=== PATIENT | female | born 1955 | race Caucasian/White ===

== ENCOUNTER 2022-10-02 06:08 | Outpatient (OUT) | payer MEDICARE, MEDICAID, SELFPAY ==
--- NOTE | 2022-10-02 06:15 | NM_ITS ---
Patient: MARTHA VIVEROS Exam Date: 10/02/2022 : 1955 Gender:F Ordering : Non-Staff Physician Admission #: [id number] Family : VERITO TAYLOR Order #: [id number] CLICK HERE TO VIEW EXAM RADIOLOGY REPORT PROCEDURE: NM COLLETTE PERF SPECT REST STR COMPARISON: None. INDICATIONS: Atrial fibrillation, chest pain TECHNIQUE: Exam Description: Stress/Rest one day protocol gated SPECT Rest Imagin.0 mCi Tc-99m Cardiolite IV on 10/02/2022 Stress Imaging 30.4 mCi Tc-99m Cardiolite IV on 10/02/2022 Exercise Protocol: 0.4 mg Lexiscan given IV Heart Rate (bpm): Rest: 73 Max: 118 PMHR: 77 Blood Pressure: Rest: 154/82 Max: 188/96 Symptoms: chest pain Rest and peak stress ECG findings were abnormal and the exercise portion of the study was abnormal per attending physician Dr. Arias . For more details please see separate cardiac stress test report. FINDINGS: QUALITY OF STUDY: Excellent. PERFUSION DEFECT: None. LOCATION: N/A SIZE: N/A. SEVERITY: N/A. TYPE: N/A. WALL MOTION: Normal. LV SIZE: Normal. 68 mL. TID / TCD: None; 0.7 LVEF: Normal. Calculated EF 75%. SUMMARY: Myocardial perfusion imaging study is NORMAL. CONCLUSION: 1. Normal myocardial perfusion scan, no reversible ischemia 2. Abnormal exercise test Dictated by: Lawrence Adams MD on 10/02/2022 at 12:34 Approved by: Lawrence Adams MD on 10/02/2022 at 15:12
[2022-10-02] MEDS: REGADENOSON 0.4 MG/5 ML SYRINGE IV (08:10)
[2022-10-02] MEDS: AMINOPHYLLINE 250 MG/10 ML VIAL 25 MG IVP ×2 (08:20)
--- NOTE | 2022-10-02 09:21 | PM.STRESS ---
Stress Test Stress Test Requesting physician: Non-Staff Physician Procedure: Lexiscan Cardioite stress test General Information: Reason for Stress Test: Chest pain Cardiac History and Risk Factors: Atrial fibrillation, former smoker Resting 12 - Lead Electrocardiogram: Normal sinus rhythm, rate 73, with PACs. Normal axis. Inverted T waves in aVL which were flattend on prior EKG 09/03/2022. Stress Test: Protocol: Lexiscan Blood Pressure Response: Resting 154/82. max 188/96 Rhythm: Remained in sinus rhytm, max rate 118 (77% max predicted). ST - Response: ~3 minutes after infusion of Lexiscan, ST segment downsloping in II/III/aVF and ST segment depression V4-6 (1mm in V5) occurred and persisted until 8 minutes post infusion with abnormal findings returning to baseline Patient Response: During same time as the aforementioned ST segment changes, the patient complained of 5/10 midsternal chest pain radiating up left neck/chin and down left arm. Aminophylline 25mg IVP x2 was administered, improving symptoms. Interpretation: Positive Lexiscan stress test based on EKG changes in the inferolateral leads accompanied by reproducible chest pain. Cardiolite imaging will be reported separately. Clinical correlation required.
== END 2022-10-02 06:09 ==
LOC: NM 06:11
PROVIDERS: PCP Family Medicine
DX: I48.91 Unspecified atrial fibrillation (principal); R07.9 Chest pain, unspecified
CPT/HCPCS: 78452; 93017; A9500; J2785

== ENCOUNTER 2022-10-03 09:14 | Outpatient (OUT) | payer MEDICARE, MEDICAID, SELFPAY ==
--- NOTE | 2022-10-03 10:33 | CA_ITS ---
Patient: MARTHA VIVEROS Exam Date: 10/03/2022 : 1955 Gender:F Ordering : CHEPE MARR Admission #: [id number] Family : Order #: [id number] CLICK HERE TO VIEW EXAM ECHOCARDIOGRAM REPORT PROCEDURE: CA ECHO DOPPLER COMPLETE INDICATIONS: CHEST PAIN, EDEMA COMPARISON: None. DESCRIPTION: COMPLETE ECHOCARDIOGRAM Real-time transthoracic echocardiography with 2D, M-mode, spectral and color flow Doppler performed. QUALITY: Technical quality was good. LEFT VENTRICLE: Normal chamber size. Normal left ventricular wall thickness. LV EF: Normal left ventricular ejection fraction, (>55%). DIASTOLIC: Diastolic function is indeterminant. ATRIAL SEPTUM: Inadequately seen. LEFT ATRIUM: Severe dilatation. RIGHT ATRIUM: Severe dilatation. RIGHT VENTRICLE: Normal chamber size. Normal right ventricular systolic function. TRICUSPID VALVE: Normal mobility and thickness. No stenosis with mild regurgitation. No evidence of pulmonary hypertension. RVSP 33 mmHg MITRAL VALVE: Mildly thickened with normal mobility. No evidence of mitral valve stenosis. There is no mitral annular calcification. Mild mitral regurgitation. AORTIC VALVE: Normal trileaflet appearance. No visible sclerosis. Normal leaflet mobility. No evidence of aortic valve stenosis. Trivial aortic regurgitation. AORTIC ROOT: Normal diameter and appearance. PULMONIC VALVE: Normal thickness and mobility. No stenosis. Trivial regurgitation. PERICARDIUM: Trivial pericardial effusion. IVC: Not well visualized. CONCLUSION: 1. Global left ventricular systolic function is normal; visually estimated ejection fraction is 55 to 60%. No wall motion abnormalities. 2. Severe biatrial enlargement. 3. The right ventricle is normal in size and systolic function. 4. Diastolic function is indeterminant. 5. Mild tricuspid regurgitation. 6. Mild mitral regurgitation. 7. Trivial pericardial effusion. Adult Echocardiography Procedure Report Left Ventricle LVEDD (3.7 - 5.6 cm): 4.33 cm LVESD (2.2 - 4.0 cm): 3.56 cm LVIVS thickness (0.6 - 1.2 cm): 1.01 cm LVPW thickness (0.5 - 1.0 cm): 0.88 cm e': 0.12 m/s E - e': 7.16 LVOT Max Gradient: 3.36 mm[Hg], 3.02 mm[Hg] LVOT Area (cm2): 0.89 m/s Peak Velocity (LVOT): 0.92 m/s, 0.87 m/s Mean Velocity (LVOT): 0.64 m/s LVOT Diameter 1.80 cm Left Atrium LA Volume Index (2D A2C): 50.65 ml/m2 Left Atrium Systolic Dimension: 4.06 cm Mitral Valve MV E to A Ratio: 1.26, 1.24 Mitral Valve A-Wave Peak Velocity: 0.70 m/s Mitral Valve E-Wave Peak Velocity: 0.87 m/s Right Ventricle Aorta AO Root Diam: 2.92 cm Ascending Ao Diam: 2.58 cm Aortic Valve AoV Area (Peak Andrae): 1.44 cm2, 1.48 cm2 AoV Area (VTI): 1.63 cm2, 1.70 cm2 Peak Velocity(Antegrade Flow): 1.58 m/s Peak Gradient(Antegrade Flow): 9.97 mm[Hg] Mean Velocity(Antegrade Flow): 1.09 m/s Mean Gradient(Antegrade Flow): 5.45 mm[Hg] Velocity Time Integral: 35.86 cm Tricuspid Valve Peak Velocity (Regurgitant Flow): 2.43 m/s, 2.19 m/s, 2.73 m/s Pulmonic Valve Peak Velocity: 0.74 m/s Peak Gradient: 2.27 mm[Hg], 2.15 mm[Hg] Right Atrium Right Atrium Systolic Pressure: 70.10 ml, 70.10 ml Dictated by: Edgar Vazquez M.D. on 10/08/2022 at 13:59 Approved by: Edgar Vazquez M.D. on 10/08/2022 at 14:03
--- NOTE | 2022-10-03 10:33 | CA_ITS ---
[facility] Test Date: 2022-11-14 Pat Name: MARTHA VIVEROS Department: Room: - Gender: Female Lombardi Developer: : 1955 Requested By: [id number] Order Number: [id number] Reading MD: CARMEL DARBY Interpretive Statements Predominant rhythm is sinus with average rate of 70 bpm Tachycardia - max rate of 188 bpm - 76 episodes of PSVT w/ longest duration of 14 beats - longest episode of 42min 46sec with rate of 122-138 bpm Bradycardia - min rate of 45 bpm - longest episode of 53min 33sec with rate of 58 bpm Ventricular ectopy - 2,650 total (<1%) - 2,561 PVC - 44 couplets - 35 trigeminy NSVT - 2 episodes with longest duration of 4 beats Patient triggered events: 6 - associated with NSR - associated with symptoms of chest pain, palpitations and fatigue Impression Predominant rhythm is sinus with average rate of 70 bpm Fastest rate of 188 bpm and slowest rate of 45 bpm 2,561 PVC, 44 couplets and 35 trigeminy 2 NSVT with longest duration of 4 beats Electronically Signed On 11-18-2022 7:17:44 EDT by CARMEL DARBY
== END 2022-10-03 09:15 ==
LOC: CARD 09:15
PROVIDERS: PCP Family Medicine
DX: I48.91 Unspecified atrial fibrillation (principal); R60.9 Edema, unspecified; R07.9 Chest pain, unspecified
CPT/HCPCS: 93246; 93306

== ENCOUNTER 2022-10-22 13:12 | Outpatient (OUT) | payer MEDICARE, MEDICAID, SELFPAY ==
--- NOTE | 2022-10-22 13:19 | MR_ITS ---
[address] [address] Patient Name: MARTHA VIVEROS MRN: [facility]:[id number] date: 1955 Sex: F Assigned Patient Location: MRI Current Patient Location: MRI Accession/Order Number: [id number] Exam Date: 10/22/2022 13:25 Report Date: 10/22/2022 15:06 At the request of: MASOUD DAVENPORT Procedure: MR lumbar spine wo con EXAMINATION: MR lumbar spine wo con HISTORY: Radiculopathy Lumbar M54.16, Weakness R53.1 ; chronic low back and bilateral leg pain COMPARISON: No relevant comparison available. TECHNIQUE: A variety of imaging planes and parameters were utilized for visualization of suspected pathology. FINDINGS: For the purposes of numbering, sagittal T2 image # 8 extends from the T12 vertebral body superiorly to the S3 level inferiorly. PARASPINAL AREA: Normal with no visible mass. BONES: No fracture, pars defect, or osseous lesion. CORD/CAUDA EQUINA: Normal caliber, contour, and signal intensity. DISC LEVELS: 12-L1: No significant disc/facet abnormality, spinal stenosis, or foraminal stenosis. L1-L2: No significant disc/facet abnormality, spinal stenosis, or foraminal stenosis. L2-L3: No significant disc/facet abnormality, spinal stenosis, or foraminal stenosis. L3-L4: Early degenerative disc disease is present without focal protrusion or neural impingement. L4-L5: Possible mild impingement of the descending L5 nerve roots bilaterally between the mildly bulging disc and mildly enlarged facet joints and ligamentum flavum thickening. No significant central canal narrowing, foraminal narrowing, or disc height reduction. L5-S1: Early degenerative disc disease is present without focal protrusion or neural impingement. IMPRESSION: 1. Mild degenerative changes L4-5 which might be causing impingement of the descending L5 nerve roots bilaterally between the slightly bulging disc and posterior elements. Electronically authenticated by: SEE RAMIREZ Date: 10/22/2022 15:06
== END 2022-10-22 13:13 | disposition home or self-care (01) ==
LOC: MRI 13:13
PROVIDERS: PCP Family Medicine; Visit Provider Nurse Practitioner Adult Health
DX: M54.16 Radiculopathy, lumbar region (principal); R53.1 Weakness; M47.816 Spondylosis without myelopathy or radiculopathy, lumbar region; M51.36 Other intervertebral disc degeneration, lumbar region
CPT/HCPCS: 72148

== ENCOUNTER 2022-10-28 14:58 | Outpatient (OUT) | payer MEDICARE, MEDICAID, SELFPAY ==
--- NOTE | 2022-10-28 15:02 | MM_ITS ---
Patient: MARTHA VIVEROS Exam Date: 10/28/2022 : 1955 Gender:F Ordering : DR. ZURDO GUTIERREZ . Admission #: [id number] Family : Order #: [id number] CLICK HERE TO VIEW EXAM RADIOLOGY REPORT PROCEDURE: MM TOMOSYNTHESIS SCREENING BI COMPARISON: MG MAMM SCREEN RADHA W CAD, 03/04/2010. INDICATIONS: Screening Calculator Name NCI Breast Cancer Risk Assessment Tool 5 Year Breast Cancer Risk 1.90% Lifetime Breast Cancer Risk 6.20% Personal Breast Cancer No Personal Ovarian Cancer No Treatments None Family Cancers None LOCATION: [facility] BREAST COMPOSITION: Heterogeneously dense,which may obscure small masses. FINDINGS: DIAGNOSTIC CATEGORY 2--BENIGN FINDING: RIGHT BREAST: No significant suspicious finding. No significant change has occurred. LEFT BREAST: No significant suspicious finding. No significant change has occurred. RECOMMENDATIONS: ROUTINE MAMMOGRAM AND CLINICAL EVALUATION IN 12 MONTHS. PLEASE NOTE: A NORMAL MAMMOGRAM DOES NOT EXCLUDE THE POSSIBILITY OF BREAST CANCER. A CLINICALLY SUSPICIOUS PALPABLE LUMP SHOULD BE BIOPSIED. Dictated by: Jose Rafael Mejia M.D. on 10/31/2022 at 12:48 Approved by: Jose Rafael Mejia M.D. on 10/31/2022 at 12:54
--- NOTE | 2022-10-28 15:02 | XR_ITS ---
[address] [address] Patient Name: MARTHA VIVEROS MRN: [id number] date: 1955 Sex: F Assigned Patient Location: [facility] Current Patient Location: [facility] Accession/Order Number: [id number] Exam Date: 10/28/2022 15:25 Report Date: 10/28/2022 15:47 At the request of: ZURDO GUTIERREZ Procedure: XR DEXA axial skeleton EXAMINATION: XR DEXA axial skeleton HISTORY: Primary Ovarian Failure Z00.00 COMPARISON: No relevant comparison available. TECHNIQUE: Dual-energy X-ray absorptiometry (DXA) was performed. FINDINGS: SPINE ANALYSIS: Average bone mineral density is 0.977 g/cm2. T-score (standard deviation relative to young adult mean): -1.9 . FOREARM ANALYSIS: Lowest bone mineral density is within the radius, 0.545 g/cm2. T-score (standard deviation relative to young adult mean): -2.4 . XR/XR DEXA axial skeleton IMPRESSION: [employer] Classification: Osteopenia - Moderate Fracture Risk Electronically authenticated by: SEE RAMIREZ Date: 10/28/2022 15:47
== END 2022-10-28 14:59 | disposition home or self-care (01) ==
LOC: MAMMO 14:58
PROVIDERS: PCP Family Medicine; Visit Provider Family Medicine
DX: Z12.31 Encounter for screening mammogram for malignant neoplasm of breast (principal); E28.39 Other primary ovarian failure; M85.829 Other specified disorders of bone density and structure, unspecified upper arm
CPT/HCPCS: 77063; 77067; 77080

== ENCOUNTER 2023-10-16 16:50 | Emergency (ER) | payer MEDICARE, MEDICAID, SELFPAY ==
[2023-10-16 17:04] VITALS: BP 126/87; PULSE 74; O2SAT 97; BMI 23.5
--- NOTE | 2023-10-16 17:10 | CT_ITS ---
The [address] [address] Patient Name: MARTHA VIVEROS MRN: [id number] date: 1955 Sex: F Assigned Patient Location: ER Current Patient Location: ER Accession/Order Number: [id number] Exam Date: 10/16/2023 17:36 Report Date: 10/16/2023 19:08 At the request of: RUSLAN MELVIN Procedure: CT abdomen pelvis wo con EXAM: CT abdomen pelvis wo con. HISTORY: Left flank pain. Dysuria. COMPARISON: None. TECHNIQUE: Unenhanced helical acquisition obtained through the abdomen and the pelvis. FINDINGS: Minimal peripheral pulmonary scarring left lower lobe. The pleural spaces are clear. Prior cholecystectomy. Allowing for the lack of intravenous contrast, the liver, spleen, pancreas and the adrenal glands are unremarkable. 1 mm nonobstructing calculus within the mid right kidney. A 1 mm nonobstructing calculus within the inferior left kidney. Moderate left hydroureteronephrosis secondary to a 5 x 4 mm mid left ureteral calculus. Image degradation within the pelvis secondary to beam-hardening artifact from bilateral hip arthroplasties. Diverticulosis without radiographic evidence of diverticulitis. The appendix is not identified. Moderate stool burden. Pelvic floor laxity with associated cystocele. CT/CT abdomen pelvis wo con IMPRESSION: 1. Moderate left hydroureteronephrosis secondary to a 5 x 4 mm mid left ureteral calculus. 2. Bilateral subcentimeter nonobstructing renal calculi. 3. Pelvic floor laxity with associated cystocele. 4. Diverticulosis without radiographic evidence of diverticulitis. Electronically authenticated by: ROWDY RUIZ Date: 10/16/2023 19:08
--- NOTE | 2023-10-16 17:52 | ED_ITS ---
HPI HPI - General Adult General Chief complaint: Urogenital-Female Stated complaint: Blood in Urine Time Seen by Provider: 10/16/23 17:09 Source: patient Mode of arrival: walk-in Limitations: no limitations History of Present Illness HPI narrative: Patient is a 68-year-old female who presents to the emergency department for a 1 to 2-month history of blood in her urine as well as left flank pain. She states she was initially seen by her PCP, Dr. Gutierrez who told her she had a urinary tract infection and she was treated with antibiotics. She states that her symptoms have not gotten any better and are now worse with pain in the left flank. She reports occasional vomiting. No objective fevers. She is not currently on any antibiotics or urinary medications. Related Data Previous Rx's ?Medication ?Instructions ?Recorded ondansetron 4 mg disintegrating 4 mg PO Q6H PRN nausea and 10/16/23 tablet vomiting #12 tabs oxycodone-acetaminophen 5 mg-325 1 tab PO Q6H PRN pain 5 days #20 10/16/23 mg tablet (Percocet) tabs tamsulosin 0.4 mg capsule (Flomax) 0.4 mg PO DAILY #7 caps 10/16/23 Allergies Allergy/AdvReac Type Severity Reaction Status Date / Time Iodinated Contrast Media Allergy Intermediate Verified 10/16/23 17:07 Penicillins Allergy Intermediate Verified 10/16/23 17:07 Opioid HPI Opioid Management Most Recent Opioid Data: Last Pain Scale 6 10/16/23 19:34 Review of Systems ROS Constitutional Denies: fever or chills Ears, nose, mouth, and throat Denies: throat pain or nasal congestion Cardiovascular Denies: chest pain Respiratory Denies: shortness of breath Gastrointestinal Reports: abdominal pain, nausea and vomiting; Denies: diarrhea Genitourinary Reports: blood in urine; Denies: painful urination Musculoskeletal Reports: back pain Integumentary/Breast Denies: rash Neurological Denies: headache Hematologic/Lymphatic Denies: easy bruising or easy bleeding Exam Narrative Exam Narrative: Gen.: Awake, alert, in no distress Head: Normocephalic, atraumatic ENT: Moist mucous membranes Respiratory: No respiratory distress, lungs clear bilaterally Cardio: Regular rate and rhythm Gastrointestinal: Abdomen is soft, nondistended and nontender to palpation Extremities: Moves extremities equally Psych: Normal mood and affect Neuro: No focal neuro deficit Skin: Warm, dry, intact Constitutional Vital Signs, click to edit/add: Last Vital Signs Temp 98.3 F 10/16/23 20:45 Pulse 77 10/16/23 20:45 Resp 16 10/16/23 20:45 BP 136/70 10/16/23 20:45 Pulse Ox 100 10/16/23 20:45 O2 Del Method Room Air 10/16/23 20:45 Course Vital Signs Vital signs: Vital Signs Pulse Rate 74 10/16/23 17:04 Respiratory Rate 18 10/16/23 17:04 Blood Pressure 126/87 10/16/23 17:04 Pulse Oximetry 97 10/16/23 17:04 Oxygen Delivery Method Room Air 10/16/23 17:04 Temperature 98.3 F 10/16/23 20:45 Pulse Rate 77 10/16/23 20:45 Respiratory Rate 16 10/16/23 20:45 Blood Pressure 136/70 10/16/23 20:45 Pulse Oximetry 100 10/16/23 20:45 Oxygen Delivery Method Room Air 10/16/23 20:45 Medical Decision Making MDM Narrative Medical decision making narrative: Patient treated with IV fluids, 15 mg IV Toradol, Zofran. She reports feeling better on reevaluation. Her labs are stable, urine specimen with no infection. CT shows the patient has a 5 x 4 mm stone in the left mid ureter with moderate hydro-. I discussed the case with Dr. Parra for urology. He recommended that the patient needs to stop her Eliquis for at least 3 days prior to her procedure so she should contact her cardiology office on Thursday, if she is able to stop the Eliquis at the recommendation, follow-up with urology for procedure. Patient was given explicit instructions for home, urine strainer, pain medication, nausea medication and Flomax. She has stable vital signs at discharge. Follow-up with urology next week and return to the ER if symptoms change or worsen SUPERVISED APC VISIT, PHYSICIAN ATTESTATION: Based on the medical record the care appears appropriate. ? Medical Records Medical records reviewed: Yes I reviewed the patient's medical records Lab Data Lab results reviewed: Yes I reviewed the patient's lab results Labs: Lab Results 10/16/23 10/16/23 Range/Units 17:52 19:45 WBC 9.7 (4.0-11.0) 10^3/uL RBC 4.10 L (4.20-5.40) 10^6/uL Hgb 12.5 (12.0-16.0) g/dL Hct 39.9 (36.0-48.0) % MCV 97.3 (81.0-99.0) fL MCH 30.5 (26.7-34.0) pg MCHC 31.3 (29.9-35.2) g/dL RDW 12.1 (11.0-15.0) % Plt Count 189 (150-450) 10^3/uL MPV 9.9 (9.5-13.5) fL Neut % (Auto) 82.8 H (43.0-75.0) % Lymph % (Auto) 8.6 L (20.5-60.0) % Atkinson % (Auto) 8.0 (1.7-12.0) % Eos % (Auto) 0.0 L (0.9-7.0) % Baso % (Auto) 0.3 (0.2-2.0) % Neut # (Auto) 8.0 H (1.4-6.5) 10^3/uL Lymph # (Auto) 0.8 L (1.2-3.8) 10^3/uL Atkinson # (Auto) 0.8 (0.3-0.8) 10^3/uL Eos # (Auto) 0.0 (0.0-0.7) 10^3/uL Baso # (Auto) 0.0 (0.0-0.1) 10^3/uL Abs Immat Gran (auto) 0.03 (0.00-0.03) 10^3/uL Imm/Tot Granulo (auto) 0.3 (0.0-0.5) % Sodium 142 (136-145) mmol/L Potassium 4.2 (3.5-5.1) mmol/L Chloride 105 (98-107) mmol/L Carbon Dioxide 28.5 (21.0-32.0) mmol/L Anion Gap 12.7 BUN 12.0 (7.0-18.0) mg/dL Creatinine 0.94 (0.55-1.02) mg/dL Est GFR ( Amer) >60 (>=60) Est GFR (Non-Af Amer) 59 L (>=60) BUN/Creatinine Ratio 12.8 Glucose 108 H (74-106) mg/dL Calcium 9.8 (8.5-10.1) mg/dL Total Bilirubin 0.6 (0.2-1.0) mg/dL AST 30 (15-37) U/L ALT 22 (14-59) U/L Alkaline Phosphatase 72 (46-116) U/L Total Protein 7.1 (6.4-8.2) g/dL Albumin 3.5 (3.4-5.0) g/dL Globulin 3.6 g/dL Albumin/Globulin Ratio 1.0 Urine Color Yellow (YELLOW) Urine Clarity Clear (CLEAR) Urine pH 6.5 (5.0-9.0) Ur Specific [place] 1.015 (1.005-1.025) Urine Protein Negative (NEG/TRACE) mg/dL Urine Glucose (UA) Negative (NEGATIVE) mg/dL Urine Ketones Trace A (NEGATIVE) mg/dL Urine Occult Blood Large A (NEGATIVE) Urine Nitrite Negative (NEGATIVE) Urine Bilirubin Negative (NEGATIVE) Urine Urobilinogen 0.2 (0.2-1.0) EU/dL Ur Leukocyte Esterase Trace A (NEGATIVE) Urine RBC >100 A (0-2) #/HPF Urine WBC 0-2 A (NONE SEEN) #/HPF Ur Squamous Epith Cells Rare (NONE/RARE) #/LPF Urine Crystals None seen (None Seen) #/HPF Amorphous Sediment Moderate Urine Bacteria None seen (NONE SEEN) #/HPF Urine Casts None seen (NONE SEEN) #/LPF Urine Mucus Small A (NONE SEEN) Ur Culture Indicated? No Imaging Data CT scan - abdomen: Attestation: I have reviewed the pertinent imaging results. Radiologist's impression: ITS Impressions Abdomen/Pelvis CT 10/16/23 17:10 IMPRESSION: 1. Moderate left hydroureteronephrosis secondary to a 5 x 4 mm mid left ureteral calculus. 2. Bilateral subcentimeter nonobstructing renal calculi. 3. Pelvic floor laxity with associated cystocele. 4. Diverticulosis without radiographic evidence of diverticulitis. Electronically authenticated by: ROWDY RUIZ Date: 10/16/2023 19:08 Discharge Plan Discharge Stand Alone Forms: Portal Instructions Chief Complaint: Urogenital-Female Clinical Impression: Left ureteral stone, Acute left flank pain Patient Disposition: Home, Self-Care Time of Disposition Decision: 20:16 Condition: Good Prescriptions / Home Meds: New oxycodone-acetaminophen [Percocet] 5-325 mg tablet 1 tab PO Q6H PRN (Reason: pain) 5 Days Qty: 20 0RF Rx Instructions: DX: N20.0 tamsulosin [Flomax] 0.4 mg capsule 0.4 mg PO DAILY Qty: 7 0RF ondansetron 4 mg tablet,disintegrating 4 mg PO Q6H PRN (Reason: nausea and vomiting) Qty: 12 0RF Print Language: Citizen Of The [place] Instructions: How to Strain Your Urine (ED), Ureteral Stones (ED) Additional Instructions: Please call your heart doctor's office on Thursday to tell them you have a kidney stone and the urologist needs your Eliquis stopped in anticipation of a procedure. If your heart doctor says that's ok, please stop your Eliquis for 3-4 days before you see the urologist. On Thursday, you also need to call the urology office to be scheduled for follow up. Referrals: Luc Diaz MD [Physician] - As soon as possible ZURDO GUTIERREZ [Primary Care Provider] - 1 week Discharge Date/Time: 10/16/23 20:48
[2023-10-16 18:00] LABS: Basophils Percent Auto 0.3 % (0.2-2.0); Hematocrit 39.9 % (36.0-48.0); Hemoglobin 12.5 g/dL (12.0-16.0); Immature Granulocytes Abs Auto 0.03 10^3/uL (0.00-0.03); Immature Granulocytes Pct Auto 0.3 % (0.0-0.5); Lymphocytes Absolute Auto 0.8 10^3/uL (1.2-3.8); Lymphocytes Percent Auto 8.6 % (20.5-60.0); Mean Corpuscular HGB Conc 31.3 g/dL (29.9-35.2); Mean Corpuscular Hemoglobin 30.5 pg (26.7-34.0); Mean Corpuscular Volume 97.3 fL (81.0-99.0); Mean Platelet Volume 9.9 fL (9.5-13.5); Monocytes Absolute Auto 0.8 10^3/uL (0.3-0.8); Neutrophils Percent Auto 82.8 % (43.0-75.0); Platelet Count 189 10^3/uL (150-450); Red Cell Distribution Width 12.1 % (11.0-15.0); White Blood Count 9.7 10^3/uL (4.0-11.0)
[2023-10-16] MEDS: ONDANSETRON PF 4 MG/2 ML VIAL IV (18:12)
[2023-10-16] MEDS: 0.9 % SODIUM CHLORIDE 1,000 ML 1000 ML IV (18:12)
[2023-10-16 18:27] LABS: Alanine Aminotransferase 22 U/L (14-59); Albumin Level 3.5 g/dL (3.4-5.0); Alkaline Phosphatase 72 U/L (46-116); Anion Gap 12.7; Aspartate Amino Transferase 30 U/L (15-37); BUN Creatinine Ratio 12.8; Bilirubin Total 0.6 mg/dL (0.2-1.0); Calcium 9.8 mg/dL (8.5-10.1); Carbon Dioxide 28.5 mmol/L (21.0-32.0); Chloride 105 mmol/L (98-107); Estimated GFR (African America >60 (>=60); Estimated GFR (Non-African Ame 59 (>=60); Globulin 3.6 g/dL; Glucose 108 mg/dL (74-106); Potassium 4.2 mmol/L (3.5-5.1); Sodium 142 mmol/L (136-145); Total Protein 7.1 g/dL (6.4-8.2)
[2023-10-16] MEDS: KETOROLAC TROMETHAMINE 30 MG/ML VIAL 15 MG IVP (19:34)
[2023-10-16 19:52] LABS: Bilirubin Urine NEGATIVE (NEGATIVE); Blood Urine LARGE (NEGATIVE); Clarity Urine CLEAR (CLEAR); Color Urine YELLOW (YELLOW); Glucose Urine UA NEGATIVE (NEGATIVE); Ketones Urine TRACE mg/dL (NEGATIVE); Leukocyte Esterase Urine TRACE (NEGATIVE); Nitrite Urine NEGATIVE (NEGATIVE); Protein Urine NEGATIVE (NEG/TRACE); Specific Gravity Urine 1.015 (1.005-1.025); Urobilinogen Urine 0.2 EU/dL (0.2-1.0); pH Urine 6.5 (5.0-9.0)
[2023-10-16 20:01] LABS: Urine Microscopic Indicated YES
[2023-10-16 20:04] LABS: Bacteria Urine NONE SEEN #/HPF (NONE SEEN); RBC Urine >100 #/HPF (0-2); WBC Urine 0-2 #/HPF (NONE SEEN)
[2023-10-16 20:05] LABS: Amorphous Sediment Urine MODERATE; Cast Seen? NONE SEEN #/LPF (NONE SEEN); Crystals Seen? None Seen #/HPF (None Seen); Mucus Urine SMALL (NONE SEEN); Squamous Epithelial Cell Urine RARE #/LPF (NONE/RARE); Urine Culture Indicated NO
[2023-10-16] MEDS: TAMSULOSIN HCL 0.4 MG CAPSULE 0.400000000000000022 MG PO (20:37)
[2023-10-16] MEDS: OXYCODONE HCL/ACETAMINOPHEN 5MG/325MG 2 TAB PO (20:38)
[2023-10-16] MEDS: ONDANSETRON 4 MG RAPDIS TABLET SL (20:38)
[2023-10-16 20:45] VITALS: BP 136/70; PULSE 77; TEMP 36.8; O2SAT 100
== END 2023-10-16 20:48 | disposition home or self-care (01) ==
PROVIDERS: Physician Assistant; Emergency Provider Emergency Medicine; PCP Family Medicine
DX: N20.1 Calculus of ureter (principal); R10.9 Unspecified abdominal pain
CPT/HCPCS: 36415; 74176; 80053; 81001; 85025; 96361; 96374; 96375; 99285; J1885; J2405; Q0162

== ENCOUNTER 2023-10-23 13:42 | Outpatient (OUT) | payer MEDICARE, MEDICAID, SELFPAY ==
--- NOTE | 2023-10-23 13:45 | US_ITS ---
The [address] [address] Patient Name: MARTHA VIVEROS MRN: [id number] date: 1955 Sex: F Assigned Patient Location: Current Patient Location: US Accession/Order Number: [id number] Exam Date: 10/23/2023 13:55 Report Date: 10/24/2023 07:51 At the request of: NEGRO SULLIVAN Procedure: US renal BI EXAMINATION: US renal BI HISTORY: Ureteral Stone With Hydronephrosis, Hematuria ; left flank pain; recent left ureteral stone COMPARISON: No relevant comparison available. TECHNIQUE: Ultrasound examination was performed of the kidneys and urinary bladder. FINDINGS: RIGHT KIDNEY: Contains a 3 mm nonobstructing stone. No evidence of pelvocaliectasis or mass. Normal renal cortical parenchymal echogenicity. Color Doppler demonstrates blood flow within the kidney. Kidney: 10.7 x 4.7 x 4.5 cm LEFT KIDNEY: Abnormally dilated renal pelvis and calyces. Contain several nonobstructing stones, largest is 5 mm.. Normal renal cortical parenchymal echogenicity. Color Doppler demonstrates blood flow within the kidney. Kidney: 12.2 x 7.1 x 7.8 cm BLADDER: No visible wall thickening, mass, or calculi. US/US renal BI IMPRESSION: 1. Moderate left hydronephrosis suggesting ureteral obstruction. Abdominal x-ray obtained on the same day does not demonstrate a ureteral stone. 2. Nonobstructing small stones within kidneys bilaterally. Electronically authenticated by: SEE RAMIREZ Date: 10/24/2023 07:51
--- NOTE | 2023-10-23 13:45 | XR_ITS ---
The [address] [address] Patient Name: MARTHA VIVEROS MRN: [id number] date: 1955 Sex: F Assigned Patient Location: Current Patient Location: Accession/Order Number: [id number] Exam Date: 10/23/2023 13:50 Report Date: 10/24/2023 07:47 At the request of: NEGRO SULLIVAN Procedure: XR abdomen 1V EXAMINATION: XR abdomen 1V HISTORY: Ureteral Stone With Hydronephrosis, Hematuria COMPARISON: CT abdomen pelvis 10/16/2023, XR hip left 02/28/2019 FINDINGS: KIDNEY/URETER - RIGHT: No visible renal or ureteral calcifications. KIDNEY/URETER - LEFT: No visible renal or ureteral calcifications. PELVIS: No visible ureteral stones. Stable pelvic calcifications favoring phleboliths. BOWEL: No abnormal dilation or deviation. BONES: Bilateral hip replacements. OTHER: Numerous right upper quadrant surgical clips from cholecystectomy. XR/XR abdomen 1V IMPRESSION: 1. No appreciable urinary tract calculi. Suspect passage of previously seen left ureteral stone. Electronically authenticated by: SEE RAMIREZ Date: 10/24/2023 07:47
== END 2023-10-23 13:43 | disposition home or self-care (01) ==
LOC: US 13:42
PROVIDERS: PCP Family Medicine; Visit Provider Urology
DX: N13.2 Hydronephrosis with renal and ureteral calculous obstruction (principal); R31.9 Hematuria, unspecified
CPT/HCPCS: 74018; 76775

== ENCOUNTER 2023-11-06 10:41 | Outpatient (OUT) | payer MEDICARE, MEDICAID, SELFPAY ==
--- NOTE | 2023-11-06 11:28 | ECG_ITS ---
The [facility] Test Date: 2023-11-06 Pat Name: MARTHA VIVEROS Department: Room: - Gender: Female Receiving Weigher: : 1955 Requested By: ZURDO GUTIERREZ Order Number: [id number] Reading MD: THOMPSON SOFIA Measurements Intervals [place] Rate: 54 P: 10 ND: 145 QRS: 10 QRSD: 97 T: 59 QT: 433 QTc: 411 Interpretive Statements SINUS BRADYCARDIA ST DEVIATION AND MODERATE T-WAVE ABNORMALITY, CONSIDER ANTERIOR ISCHEMIA [-0.1+ mV T WAVE IN V3/V4] Compared to ECG 09/03/2022 15:33:25 T-wave abnormality now present Possible ischemia now present Sinus rhythm no longer present Electronically Signed On 11-09-2023 7:31:19 EDT by THOMPSON SOFIA
[2023-11-06 11:59] LABS: Basophils Percent Auto 0.5 % (0.2-2.0); Eosinophils Absolute Auto 0.1 10^3/uL (0.0-0.7); Eosinophils Percent Auto 1.5 % (0.9-7.0); Hematocrit 37.6 % (36.0-48.0); Hemoglobin 12.1 g/dL (12.0-16.0); Immature Granulocytes Abs Auto 0.02 10^3/uL (0.00-0.03); Immature Granulocytes Pct Auto 0.3 % (0.0-0.5); Lymphocytes Absolute Auto 1.4 10^3/uL (1.2-3.8); Lymphocytes Percent Auto 23.3 % (20.5-60.0); Mean Corpuscular HGB Conc 32.2 g/dL (29.9-35.2); Mean Corpuscular Hemoglobin 30.9 pg (26.7-34.0); Mean Corpuscular Volume 95.9 fL (81.0-99.0); Monocytes Absolute Auto 0.7 10^3/uL (0.3-0.8); Monocytes Percent Auto 11.8 % (1.7-12.0); Neutrophils Absolute Auto 3.8 10^3/uL (1.4-6.5); Neutrophils Percent Auto 62.6 % (43.0-75.0); Platelet Count 163 10^3/uL (150-450); Red Blood Count 3.92 10^6/uL (4.20-5.40); Red Cell Distribution Width 12.3 % (11.0-15.0)
[2023-11-06 12:32] LABS: Anion Gap 9.7; BUN Creatinine Ratio 15.7; Carbon Dioxide 30.8 mmol/L (21.0-32.0); Chloride 107 mmol/L (98-107); Estimated GFR (African America >60 (>=60); Estimated GFR (Non-African Ame >60 (>=60); Glucose 104 mg/dL (74-106); Potassium 3.5 mmol/L (3.5-5.1); Sodium 144 mmol/L (136-145)
[2023-11-06 12:33] LABS: INR 1.03; Partial Thromboplastin Time 27.1 sec (22.3-36.2); Prothrombin Time 10.9 sec (9.0-11.6)
== END 2023-11-06 10:42 | disposition home or self-care (01) ==
LOC: PST 10:42
PROVIDERS: PCP Family Medicine; Visit Provider Urology
DX: Z01.810 Encounter for preprocedural cardiovascular examination (principal); Z01.812 Encounter for preprocedural laboratory examination; N13.2 Hydronephrosis with renal and ureteral calculous obstruction
CPT/HCPCS: 80048; 85025; 85610; 85730; 93005

== ENCOUNTER 2023-11-18 11:19 | Day surgery (SDC) | payer MEDICARE, MEDICAID, SELFPAY ==
[2023-11-06 11:33] VITALS: BP 123/86; PULSE 59; TEMP 36.3; O2SAT 97; BMI 24.2
[2023-11-18] VITALS (9 sets, daily range): BP systolic 106–136; BP diastolic 52–71; PULSE 61–76; TEMP 36.3–36.4; O2SAT 94–98; BMI 23.6
--- NOTE | 2023-11-18 | XR_ITS ---
[address] [address] Patient Name: MARTHA VIVEROS MRN: [id number] date: 1955 Sex: F Assigned Patient Location: [facility] Current Patient Location: Accession/Order Number: [id number] Exam Date: 11/18/2023 12:31 Report Date: 11/18/2023 15:39 At the request of: NEGRO SULLIVAN Procedure: XR urethrogram retrograde EXAM: XR urethrogram retrograde HISTORY: Left ureteral stone COMPARISON: None. TECHNIQUE: 7.53 mCi. 2 images FINDINGS: 2 images demonstrate retrograde injection of iodinated contrast into the left renal collecting system. Partial opacification of the renal pelvis. No filling defect or stricture XR/XR urethrogram retrograde IMPRESSION: Images from a retrograde urethrogram Electronically authenticated by: CHEPE RAMÍREZ Date: 11/18/2023 15:39
[2023-11-18] MEDS: LACTATED RINGER'S SOLUTION 1,000 ML 50 ML IV (11:52)
[2023-11-18] MEDS: CEFAZOLIN SODIUM/DEXTROSE,ISO 2 GM/50 ML PIGGYBACK IV (12:29)
[2023-11-18] MEDS: IOHEXOL 300 MG/ML - 50 ML BTL INJ (13:17)
--- NOTE | 2023-11-18 13:37 | PM.URSON ---
Urology Surgery Operative Note Operative Note Procedure Date: 11/18/23 Time Out Performed: yes Pre-op Diagnosis: Left ureteral stone with hydronephrosis Post-op Diagnosis: other (Mild left hydronephrosis) Procedures performed: Cystoscopy, left retrograde pyelogram, left ureteroscopy Anesthesia: MARCIAL (Dr. Espinal) Primary Surgeon: Lisa Ramírez Complications: none Estimated blood loss (mL): 0 Findings: Stage 3 cystocele, difficult left ureteroscopy due to posterior displacement of trigone and mildly tight UO. 1+ trabeculations. No bladder tumors or lesions. L RPG no filling defects, mild-mod pelviectasis with mild narrowing at UPJ, appears to be extrarenal pelvis vs mild UPJ obstruction from extrinsic compression No ureteral stone or stricture noted. 1 mm left lower pole forming stone, unable to basket extract due to angle and still attached to papilla. Rony's plaques Specimens: none Drains: none Incision: none Indications for Procedures: 68 year old female recently diagnosed with 5x4 mm left mid ureteral stone with hydronephrosis who failed medical expulsive therapy. After discussion of risks/benefits of management options, she elected to proceed with cystoscopy, left retrograde pyelogram, ureteroscopy with laser lithotripsy/stone extraction, possible ureteral stent placement under general anesthesia. Risks were discussed including but not limited to bleeding, pain, infection, damage to surrounding structures, inability to treat the stone/place a stent, and need for additional procedures. The patient understands the stent is not permanent and needs to be removed or exchanged within 3 months to prevent encrustation, infection, invasive procedures and/or permanent renal damage. Detailed description of Procedure: After informed consent was obtained, the patient was brought to the operating room and transferred onto the operating table in supine position. Sequential compression devices were placed on bilateral lower extremities. The patient received the appropriate dose of preoperative IV antibiotics and general anesthesia was induced. They were positioned in modified dorsolithotomy with the appropriate pressure points padded, prepped, and draped in the usual sterile fashion for this procedure. An operative safety timeout was performed confirming the patient's identity, laterality and procedure, and all present agreed to proceed. I began by inserting a 22 [place] rigid cystoscope with 30 degree lens into the patient's urethra and bladder with mild difficulty due to angulation from significant cystocele. There were no bladder tumors, lesions, stones or foreign bodies. Bilateral ureteral orifices were orthotopic once cystocele was corrected and patent. I turned my attention to the left ureteral orifice and a 6- [place] open-ended catheter was inserted into the ureteral orifice and dilute contrast was injected for retrograde pyelogram with findings as above. A Sensor wire was inserted into the ureter up to the renal pelvis confirmed on fluoroscopy. Next a semirigid ureteroscope was inserted along the wire and ureteroscopy to the mid ureter confirmed no stone. The scope was removed and a flexible ureteroscope was inserted over the wire and advanced to the mid ureter under fluoroscopic guidance. A complete ureterorenoscopy was performed confirming no significant stone present. Findings as above. Contrast was injected to assist with mapping for the renoscopy. A pull down ureteroscopy was performed confirming no stones were in the ureter. The bladder was drained and the cystoscope was removed. The patient tolerated the procedure well without complication. The patient was awakened from anesthesia and sent to PACU in stable condition. Plan: Dc home, follow up in 6 months with renal US for stone surveillance Other Provider present: No Post Operative care instructions: See discharge instructions Attending Doc Confirm Attending Attestation: Yes
--- NOTE | 2023-11-18 14:40 | PC.NURSE ---
Denies urge to void
--- NOTE | 2023-11-18 15:06 | PC.NURSE ---
Up to bathroom and voids clear pink urine without difficulty.
== END 2023-11-18 15:08 ==
PROVIDERS: PCP Family Medicine; Visit Provider Urology
PROC: (CPT 910; principal; 2023-11-18 12:30)
DX: N13.2 Hydronephrosis with renal and ureteral calculous obstruction (principal); N32.89 Other specified disorders of bladder; N81.10 Cystocele, unspecified; Z87.891 Personal history of nicotine dependence; R31.0 Gross hematuria; Z79.01 Long term (current) use of anticoagulants; Z90.710 Acquired absence of both cervix and uterus; Z90.49 Acquired absence of other specified parts of digestive tract; E78.5 Hyperlipidemia, unspecified; I10 Essential (primary) hypertension; I48.91 Unspecified atrial fibrillation
CPT/HCPCS: 52351; 36415; 74420; J0690; J1100; J1885; J2250; J2405; J2704; J3010; Q9967

== ENCOUNTER 2023-11-28 08:45 | Outpatient (OUT) | payer MEDICARE, MEDICAID, SELFPAY ==
--- NOTE | 2023-11-28 | US_ITS ---
[address] [address] Patient Name: MARTHA VIVEROS MRN: [id number] date: 1955 Sex: F Assigned Patient Location: Current Patient Location: Accession/Order Number: [id number] Exam Date: 11/28/2023 08:57 Report Date: 12/01/2023 07:50 At the request of: NEGRO SULLIVAN Procedure: US renal BI EXAMINATION: US renal BI HISTORY: ABDOMINAL PAIN R31.9, HEMATURIA Z87.442 COMPARISON: No relevant comparison available. TECHNIQUE: Ultrasound examination was performed of the bladder. FINDINGS: Right Kidney: Normal in size, contour and echotexture. The cortex measures 1.0 cm. 2 mm echogenic focus, nonobstructing nephrolith. No hydronephrosis or solid cortical mass Height: 4.50 cm Length: 10.27 cm Width: 4.58 cm Left Kidney: Normal in size, contour and echotexture. The cortex measures 1.4 cm. 4 mm echogenic focus, nonobstructing nephrolith. No solid cortical mass. Mild pelviectasis. Height: 4.67 cm Length: 11.76 cm Width: 4.56 cm Urinary bladder is normal. Volume 167 mL US/US renal BI IMPRESSION: Bilateral nonobstructing nephrolithiasis Mild left pelviectasis Electronically authenticated by: CHEPE RAMÍREZ Date: 12/01/2023 07:50
--- OUTSIDE RECORDS SUMMARY | 2023-11-28 08:49 | XMS_ITS | CCD ---
Author Organization [facility] Care Team Providers Care Shearer Helper Name Role Phone RICK AVILA Primary Care Physician AUSTIN ., DR RICK Isaac Primary Care Unavailable HAY ., DR ALEXANDER Admitting Unavailable HAY ., DR ALEXANDER Attending Unavailable HAY ., DR ALEXANDER Consulting Unavailable NEFCYDIEGO Consulting Unavailable NILL ., DR CARVAJAL Admitting Unavailable AVILA ., DR RICK Isaac Primary Care Unavailable NILL ., DR CARVAJAL Attending Unavailable NILL ., DR CARVAJAL Consulting Unavailable AVILA ., DR RICK Isaac Primary Care Unavailable NILL ., DR CARVAJAL Admitting Unavailable NILL ., DR CARVAJAL Attending Unavailable NILL ., DR CARVAJAL Consulting Unavailable JOSE, NABEEL Consulting Unavailable KUCHIPUDI, JALEN Consulting Unavailable AVILA ., DR RICK Isaac Admitting Unavailable AVILA ., DR RICK Isaac Attending Unavailable AVILA ., DR RICK Isaac Consulting Unavailable AVILA ., DR RICK Isaac Primary Care Unavailable AVILA ., DR RICK Isaac Admitting Unavailable AVILA ., DR RICK Isaac Attending Unavailable AVILA ., DR RICK Isaac Consulting Unavailable AVILA ., DR RICK Isaac Primary Care Unavailable [place], DR CHEPE Bernstein Consulting Unavailable AVILA ., DR RICK Isaac Admitting Unavailable AVILA ., DR RICK Isaac Attending Unavailable AVILA ., DR RICK Isaac Consulting Unavailable AVILA ., DR RICK Isaac Primary Care Unavailable PAY ., DR LUO Attending Unavailable PAY ., DR LUO Consulting Unavailable PAY ., DR LUO Admitting Unavailable AVILA ., DR RICK Isaac Primary Care Unavailable Román Feliz Primary Care Physician [phone] RICK AVILA Primary Care Unavailable Vanesa Rodriguez Admitting Unavail able Vanesa Rodriguez Attending Unavail able Fidel Orellana Consulting Unavailable Román Feliz Primary Care Unavailable Vanesa Rodriguez Admitting Unavail able Vanesa Rodriguez Attending Unavail able Román Feliz Primary Care Unavailable Vanesa Rodriguez Admitting Unavail able Jennifer, Vanesa Vides Attending Unavail able Tray Románpiotr Carpio Primary Care Unavailable Esteban, Fidel Admitting Unavailable Esteban, Fidel Attending Unavailable Tray Románpiotr Carpio Primary Care Unavailable JENNIFER, VANESA Flanagan Attending Unavailable JONATHAN JOY Attending Unavailable JENNIFER, VANESA Flanagan Attending Unavailable JENNIFER, VANESA Flanagan Referring Unavailable Román Feliz Attending Unavailable Román Feliz. Attending Unavailable Román Feliz E. Attending Unavailable Román Feliz E. Attending Unavailable Román Feliz E. Attending Unavailable NONE, XXXX Referring Unavailable MD Elvis Vernon Attending Unavailable Román Feliz EChiquita Admitting Unavailable Amy Lopez Attending Unavailable Lisa Ramírez Referring Unavailable Lisa Ramírez Attending Unavailable Román Feliz E. Attending Unavailable Román Feliz Attending Unavailable Adali Stone Attending Unavailable Román Feliz E. Attending Unavailable Román Feliz. Attending Unavailable Lisa Ramírez Attending Unavailable Lisa Ramírez Attending Unavailable Lisa Ramírez. Attending Unavailable Román Feliz E. Attending Unavailable Román Feliz. Attending Unavailable Román Feliz Attending Unavailable Román Feliz Attending Unavailable Román Feliz. Attending Unavailable Lisa Ramírez Attending Unavailable NONE, XXXX Referring Unavailable Russell Cardenas. Attending Unavaila ble NONE, XXXX Referring Unavailable Russell Cardenas. Attending Unavaila Román Lowry Attending Unavailable Román Feliz Admitting Unavailable Román Feliz Attending Unavailable Román Feliz EChiquita Admitting Unavailable Román Feliz Attending Unavailable Allergies Allergy Classification Reported Allergen(s) Allergy Type Date of Onset Reaction(s) Facility Iodine (and Iodine containting drugs) (1 source) Iodine; Translations: [iodine] Drug Allergy Unknown (qualifier value) [facility] Opioid Agonists (1 source) Codeine; Translations: [codeine] Drug Allergy Unknown (qualifier value) [facility] Penicillins (antibiotic) (1 source) Penicillin; Translations: [penicillin] Drug Allergy Unknown (qualifier value) [facility] (12 sources) Adhesive bandage; Translations: [Adhesive Bandage] Drug allergy Unknown (qualifier value) [facility] (12 sources) Codeine; Translations: [codeine] Drug Allergy 3 Unknown (qualifier value) [facility] (11 sources) Iodine; Translations: [iodine] Drug Allergy Unknown (qualifier value) [facility] (12 sources) Penicillin; Translations: [penicillin] Drug Allergy Unknown (qualifier value) General Surgery [facility] And Ready (1 source) Adhesive agent Drug allergy (disorder) 7 [facility] Rep[facility] (1 source) Iodine (And Iodine Containting Drugs) Drug allergy (disorder) 6 [facility] Rep[facility] (1 source) Penicillins Drug allergy (disorder) 6 [facility] Rep[facility] (1 source) Adhesive Tape; Translations: [Tape] Propensity to adverse reactions (disorder) [facility] Repository (1 source) Contrast media; Translations: [Contrast Dye] Propensity to adverse reactions to drug (disorder) [facility] Rep[facility] (1 source) Latex; Translations: [Latex] Propensity to adverse reactions to drug (disorder) [facility] Repository Medications Current Medications Medication Drug Class(es) Dates Sig (Normalized) Sig (Original) apixaban 5 mg oral tablet (10 sources) Factor Xa Inhibitor Start: 11-03-2023 take 1 tablet by mouth twice daily Eliquis 5 mg oral tablet See Instructions, TAKE 1 TABLET BY MOUTH TWICE A DAY, # 60 tab(s), Refills(s) 1, Pharmacy: [id number], 173, cm, 10/28/23 8:24:00 EDT, Height/Length Dosing, 72.5, kg, 10/28/23 8:24:00 EDT, Weight Dosing Start Date: 11/03/23 Status: Ordered Start: 08-17-2023 take 1 tablet by rocío th twice daily Eliquis 5 mg oral tablet 5 mg = 1 tab(s), Oral, BID, # 60 tab(s), Refills(s) 1, Pharmacy: [facility]/pharmacy #[id number], 172, cm, 08/17/23 13:48:00 EDT, Height/Length Dosing, 73.9, kg, 08/17/23 13:48:00 EDT, Weight Dosing Start Date: 08/17/23 Status: Ordered Start: 07-09-2023 take 1 tablet by rocío twice daily Eliquis 5 mg oral tablet 5 mg = 1 tab(s), Oral, BID, # 60 tab(s), Refills(s) 1, Pharmacy: [facility]/pharmacy #[id number], 172, cm, 06/03/23 13:02:00 EST, Height/Length Dosing, 76.5, kg, 06/03/23 13:07:00 EST, Weight Dosing Start Date: 07/09/23 Status: Ordered Start: 09-09-2022 take 1 tablet by rocío twice daily apixaban 5 mg oral tablet 5 mg = 1 tab(s), Oral, BID, # 180 tab(s), Refills(s) 1, Pharmacy: [facility], 172.7, cm, 09/09/22 14:15:00 EDT, Height/Length Dosing, 81.8, kg, 09/09/22 14:15:00 EDT, Weight Dosing Start Date: 09/09/22 Status: Ordered atorvastatin 10 mg oral tablet (10 sources) HMG-CoA Reductase Inhibitor Start: 05-18-2023 take 1 tablet by mouth once daily atorvastatin 10 mg Tab See Instructions, TAKE ONE TABLET BY MOUTH DAILY, # 90 EA, Refills(s) 1, [id number], cm, 04/15/23 16:16:00 EST, Height/Length Dosing, 79.4, kg, 04/15/23 16:16:00 EST, Weight Dosing Start Date: 05/18/23 Status: Ordered Start: 10-07-2022 take 1 tablet by rocío once daily atorvastatin 10 mg Tab 10 mg = 1 tab(s), Oral, Daily, # 90 tab(s), Refills(s) 1, Pharmacy: [facility], 172, cm, 10/07/22 13:11:00 EDT, Height/Length Dosing, 81.3, kg, 10/07/22 13:11:00 EDT, Weight Dosing Start Date: 10/07/22 Status: Ordered busPIRone hydrochloride 5 mg oral tablet (11 sources) Start: 08-27-2023 take 1 tablet by mouth three times daily busPIRone 5 mg Tab See Instructions, TAKE 1 TABLET BY MOUTH THREE TIMES A DAY, # 270 tab(s), Refills(s) 1, Pharmacy: [facility] [id number], 172, cm, 08/17/23 13:48:00 EDT, Height/Length Dosing, 73.9, kg, 08/17/23 13:48:00 EDT, Weight Dosing Start Date: 08/27/23 Status: Ordered Start: 08-03-2023 take 1 tablet by rocío three times daily busPIRone 5 mg Tab See Instructions, TAKE 1 TABLET BY MOUTH THREE TIMES A DAY, # 90 tab(s), Refills(s) 0, Pharmacy: [facility] STORE [id number], 172, cm, 07/13/23 14:59:00 EDT, Height/Length Dosing, 75.5, kg, 07/13/23 14:59:00 EDT, Weight Dosing Start Date: 08/03/23 Status: Ordered Start: 06-03-2023 take 1 tablet by rocío three times daily busPIRone 5 mg Tab See Instructions, TAKE ONE TABLET BY MOUTH THREE TIMES A DAY, # 90 EA, Refills(s) 0, Pharmacy: [facility]/pharmacy #[id number], 172, cm, 06/03/23 13:02:00 EST, Height/Length Dosing, 76.5, kg, 06/03/23 13:07:00 EST, Weight Dosing Start Date: 06/03/23 Status: Ordered Start: 12-08-2022 take 1 tablet by rocío three times daily busPIRone 5 mg Tab See Instructions, TAKE ONE TABLET BY MOUTH THREE TIMES A DAY, # 90 EA, Refills(s) 0, Pharmacy: [facility], 172, cm, 12/04/22 11:31:00 EDT, Height/Length Dosing, 83.9, kg, 12/04/22 11:31:00 EDT, Weight Dosing Start Date: 12/08/22 Status: Ordered Start: 10-07-2022 take 1 tablet by rocío three times daily busPIRone 5 mg Tab 5 mg = 1 tab(s), Oral, TID, # 90 tab(s), Refills(s) 0, Pharmacy: [facility], 172, cm, 10/07/22 13:11:00 EDT, Height/Length Dosing, 81.3, kg, 10/07/22 13:11:00 EDT, Weight Dosing Start Date: 10/07/22 Status: Ordered Start: 08-05-2021 take 1 tablet by [facility] once daily in the morning busPIRone 5 mg Tab 5 mg = 1 tab(s), Oral, qAM, Refills(s) 0 Start Date: 08/05/21 Status: Ordered celecoxib 400 mg oral capsule (11 sources) Nonsteroidal Anti-inflammatory Drug Start: 10-21-2023 take 1 capsule by mouth once daily celecoxib 400 mg oral capsule 400 mg = 1 cap(s), Oral, Daily, # 90 cap(s), Refills(s) 4, [id number], cm, 08/17/23 13:48:00 EDT, Height/Length Dosing, 73.9, kg, 08/17/23 13:48:00 EDT, Weight Dosing Start Date: 10/21/23 Status: Ordered Start: 07-22-2023 take 1 capsule by [facility] once daily celecoxib 400 mg oral capsule 400 mg = 1 cap(s), Oral, Daily, # 90 cap(s), Refills(s) 0, Pharmacy: [facility]/pharmacy #[id number], 172, cm, 07/13/23 14:59:00 EDT, Height/Length Dosing, 75.5, kg, 07/13/23 14:59:00 EDT, Weight Dosing Start Date: 07/22/23 Status: Ordered Start: 04-15-2023 take 1 capsule by [facility] once daily celecoxib 400 mg oral capsule 400 mg = 1 cap(s), Oral, Daily, # 90 cap(s), Refills(s) 0, Pharmacy: [facility] 1155, 172, cm, 02/18/23 16:00:00 EDT, Height/Length Dosing, 83.8, kg, 02/18/23 16:00:00 EDT, Weight Dosing Start Date: 04/15/23 Status: Ordered Start: 08-05-2021 take 1 capsule by [facility] once daily Celebrex 400 mg oral capsule 400 mg = 1 cap(s), Oral, Daily, Refills(s) 0 Start Date: 08/05/21 Status: Ordered ciprofloxacin 500 mg oral tablet (1 source) Quinolone Antimicrobial Start: 07-14-2023 End: 07-21-2023 take 1 tablet by mouth every twelve hours ciprofloxacin 500 mg Tab 500 mg = 1 tab(s), Oral, q12hr, X 7 day(s), # 14 tab(s), Refills(s) 0, Pharmacy: [facility]/pharmacy #[id number], 172, cm, 07/13/23 14:59:00 EDT, Height/Length Dosing, 75.5, kg, 07/13/23 14:59:00 EDT, Weight Dosing Start Date: 07/14/23 Stop Date: 07/21/23 Status: Ordered cyclobenzaprine hydrochloride 5 mg oral tablet (6 sources) Muscle Relaxant Start: 07-02-2023 take 5 mg by mouth at bedtime as needed for muscle spasms cyclobenzaprine 5 mg, Oral, Bedtime, PRN Spasm, Refills(s) 0 Start Date: 07/02/23 Status: Ordered Start: 08-05-2021 take 1 tablet by rocío th at bedtime as needed for muscle spasms cyclobenzaprine 10 mg Tab 10 mg = 1 tab(s), Oral, Bedtime, PRN for spasm, Refills(s) 0 Start Date: 08/05/21 Status: Ordered D3 (5 sources) Start: 06-25-2023 take 50 ug by mouth once daily D3 50 mcg, Oral, Daily, Refills(s) 0 Start Date: 06/25/23 Status: Ordered fluticasone propionate 0.05 mg/actuat metered dose nasal spray (3 sources) Corticosteroid Start: 11-20-2022 take 1 spray(s) nasal route twice daily Flonase 0.05 mg/inh [place] 1 spray(s), Nasal, BID, 16 gram, Refill(s) 0, each nostril, [facility], 172, cm, 11/20/22 11:20:00 EDT, Height/Length Dosing, 83.1, kg, 11/20/22 11:20:00 EDT, Weight Dosing Start Date: 11/20/22 Status: Ordered gabapentin 100 mg oral capsule (5 sources) Anti-epileptic Agent Start: 09-09-2022 take 1 capsule by mouth three times daily gabapentin 100 mg Cap TAKE ONE CAPSULE BY MOUTH THREE TIMES A DAY FOR 30 DAYS Start Date: 09/09/22 Status: Ordered Handicap Placard, 6 months (5 sources) Start: 02-18-2023 Handicap Placard, 6 months Handicap Placard, 6 months, See Instructions, 1 EA, 0, Handicap Placard, 6 month, Supply Start Date: 02/18/23 Status: Ordered metoprolol tartrate 100 mg oral tablet (10 sources) beta-Adrenergic Ankush Start: 05-18-2023 take 1 tablet by mouth twice daily metoprolol tartrate 100 mg Tab 100 mg = 1 tab(s), Oral, BID, # 180 tab(s), Refills(s) 3, Pharmacy: [facility]/pharmacy #[id number], 172, cm, 04/15/23 16:16:00 EST, Height/Length Dosing, 79.4, kg, 04/15/23 16:16:00 EST, Weight Dosing Start Date: 05/18/23 Status: Ordered Start: 02-12-2023 take 1 tablet by rocío twice daily metoprolol tartrate 100 mg Tab 100 mg = 1 tab(s), Oral, BID, # 180 tab(s), Refills(s) 3, Pharmacy: [facility], 172, cm, 02/12/23 13:48:00 EDT, Height/Length Dosing, 83.1, kg, 02/12/23 13:48:00 EDT, Weight Dosing Start Date: 02/12/23 Status: Ordered Start: 12-04-2022 take 1 tablet by rocío twice daily Metoprolol tartrate 50 mg Tab 50 mg = 1 tab(s), Oral, BID, # 180 tab(s), Refills(s) 3, Pharmacy: [facility], 172, cm, 12/04/22 11:31:00 EDT, Height/Length Dosing, 83.9, kg, 12/04/22 11:31:00 EDT, Weight Dosing Start Date: 12/04/22 Status: Ordered Start: 10-07-2022 take 1 tablet by rocío th twice daily Lopressor 25 mg oral tablet 25 mg = 1 tab(s), Oral, BID, # 180 tab(s), Refills(s) 0, Pharmacy: [facility], 172, cm, 10/07/22 13:11:00 EDT, Height/Length Dosing, 81.3, kg, 10/07/22 13:11:00 EDT, Weight Dosing Start Date: 10/07/22 Status: Ordered Multi Vitamin+ (5 sources) Start: 06-25-2023 take 1 tablet by mouth once daily Multi Vitamin+ 1 TABLET, Oral, Daily, Refill(s) 0 Start Date: 06/25/23 Status: Ordered OLANZapine 5 mg oral tablet (10 sources) Atypical Antipsychotic Start: 06-03-2023 take 1 tablet by mouth once daily olanzapine 5 mg Tab 5 mg = 1 tab(s), Oral, Daily, # 90 tab(s), Refills(s) 0, Pharmacy: [facility]/pharmacy #[id number], 172, cm, 06/03/23 13:02:00 EST, Height/Length Dosing, 76.5, kg, 06/03/23 13:07:00 EST, Weight Dosing Start Date: 06/03/23 Status: Ordered Start: 01-16-2023 take 1 tablet by rocío th once daily olanzapine 5 mg Tab 5 mg = 1 tab(s), Oral, Daily, # 90 tab(s), Refills(s) 0, Pharmacy: [facility], 149.6, cm, 01/07/23 13:40:00 EDT, Height/Length Dosing, 84.2, kg, 01/07/23 13:40:00 EDT, Weight Dosing Start Date: 01/16/23 Status: Ordered Start: 10-07-2022 take 1 tablet by rocío th once daily ZyPREXA 5 mg Tab 5 mg = 1 tab(s), Oral, Daily, # 90 tab(s), Refills(s) 0, Pharmacy: [facility], 172, cm, 10/07/22 13:11:00 EDT, Height/Length Dosing, 81.3, kg, 10/07/22 13:11:00 EDT, Weight Dosing Start Date: 10/07/22 Status: Ordered PreserVision AREDS (5 sources) Start: 06-25-2023 take 1 tablet by mouth once daily PreserVision AREDS 1 tablet, Oral, Daily, Refill(s) 0 Start Date: 3/7/24 Status: Ordered tamsulosin hydrochloride 0.4 mg oral capsule (3 sources) alpha-Adrenerg ic Ankush Start: 10-28-2023 take 1 capsule by mouth once daily tamsulosin 0.4 mg Cap 0.4 mg = 1 cap(s), Oral, Daily, # 30 cap(s), Refills(s) 0, Pharmacy: [facility]/pharmacy #[id number], 173, cm, 10/28/23 8:24:00 EDT, Height/Length Dosing, 72.5, kg, 10/28/23 8:24:00 EDT, Weight Dosing Start Date: 10/28/23 Status: Ordered Problems Active Problems Problem Classification Problem Date Documented Da te Episodic/Chronic Abdominal hernia (11 sources) Hiatal hernia 01-17-2022 Episodic Anxiety disorders (14 sources) Anxiety; Translations: [Mixed anxiety and depressive disorder] 09-03-2022 Chronic Calculus of urinary tract (15 sources) History of calculus of kidney; Translations: [Kidney stone] Onset: 4 08-05-2021 Episodic Cardiac dysrhythmias (12 sources) Persistent atrial fibrillation; Translations: [Other persistent atrial fibrillation] Onset: 3 10-06-2022 Chronic Cardiac dysrhythmias (1 source) Palpitations; Translations: [Palpitations] Onset: 3 Episodic Conditions associated with dizziness or vertigo (2 sources) Dizziness 07-13-2023 Episodic Disorders of lipid metabolism (12 sources) Pure hypercholesterolemia; Translations: [Pure hypercholesterolemia, unspecified] Onset: 3 08-05-2021 Chronic Diverticulosis and diverticulitis (16 sources) Diverticular disease; Translations: [Diverticulosis of large intestine without perforation or abscess without bleeding] Onset: 2 08-05-2021 Chronic Esophageal disorders (13 sources) Gastroesophageal reflux disease without esophagitis; Translations: [Gastro-esophageal reflux disease without esophagitis] Onset: 2 Chronic Genitourinary symptoms and ill-defined conditions (11 sources) Urinary incontinence 08-05-2021 Chronic Genitourinary symptoms and ill-defined conditions (6 sources) Urine looks dark; Translations: [Blood in urine] Onset: 4 07-13-2023 Episodic Headache; including migraine (11 sources) Migraine 08-05-2021 Chronic Inflammatory diseases of female pelvic organs (11 sources) Endometritis 01-17-2022 Episodic Mood disorders (11 sources) Depressive disorder; Translations: [Severe recurrent major depression without psychotic features] 01-17-2022 Chronic Nutritional deficiencies (11 sources) Vitamin D deficiency 08-05-2021 Chronic Osteoarthritis (10 sources) Osteoarthritis 09-03-2022 Chronic Other aftercare (1 source) 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; Translations: [OTH SENIOR CARE CURRENT DRUG THERAPY] Onset: 3 Episodic Other aftercare (1 source) Long-term current use of anticoagulant; Translations: [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] Onset: 4 Episodic Other and ill-defined cerebrovascular disease (4 sources) Other cerebrovascular vasospasm and vasoconstriction; Translations: [OTH CV VASOSPASM VASOCONSTRICTION] Onset: 3 Chronic Other bone disease and musculoskeletal deformities (8 sources) Osteopenia 10-31-2022 Episodic Other connective tissue disease (1 source) Presence of artificial hip joint, bilateral; Translations: [PRESENCE ARTIFICIAL HIP JOINT BILAT] Onset: 3 Chronic Other connective tissue disease (11 sources) Fibromyalgia 08-05-2021 Episodic Other connective tissue disease (11 sources) Primary fibrositis 08-05-2021 Episodic Other diseases of kidney and ureters (1 source) Urinary tract obstruction; Translations: [Hydronephrosis with renal and ureteral calculous obstruction] Onset: 4 Episodic Other gastrointestinal disorders (1 source) Altered bowel function; Translations: [Change in bowel habit] Onset: 2 Episodic Other gastrointestinal disorders (9 sources) Dysphagia; Translations: [Dysphagia, unspecified] Onset: 2 Episodic Other gastrointestinal disorders (11 sources) Alteration in bowel elimination 01-28-2022 Episodic Other gastrointestinal disorders (11 sources) History of diverticulitis 08-05-2021 Episodic Other inflammatory condition of skin (11 sources) Lupus erythematosus 08-05-2021 Chronic Other inflammatory condition of skin (4 sources) Discoid lupus erythematosus; 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] Onset: 3 Chronic Other nervous system disorders (1 source) Other chronic pain; Translations: [OTHER CHRONIC PAIN] Onset: 3 Chronic Other nervous system disorders (10 sources) Walking disability 08-06-2022 Chronic Other nervous system disorders (5 sources) Taste sense altered 11-20-2022 Episodic Other nutritional; endocrine; and metabolic disorders (11 sources) Overweight in adulthood with body mass index of 25 or more but less than 30 01-28-2022 Episodic Other upper respiratory disease (11 sources) Seasonal allergic rhinitis 08-05-2021 Chronic Other upper respiratory infections (2 sources) Sinusitis 04-15-2023 Chronic Residual codes; unclassified (1 source) Family history of malignant neoplasm of digestive organ; Translations: [Family history of malignant neoplasm of digestive organs] Onset: 2 Episodic Residual codes; unclassified (9 sources) Early satiety; Translations: [Early satiety] Onset: 2 Episodic Residual codes; unclassified (11 sources) Family history of cancer of colon 01-28-2022 Episodic Screening and history of mental health and substance abuse codes (15 sources) H/O: depression; Translations: [H/O: Disorder] Onset: 4 08-05-2021 Episodic Spondylosis; intervertebral disc disorders; other back problems (5 sources) Radiculopathy, lumbar region; Translations: [Sciatica, left side] Onset: 3 Episodic Unclassified (1 source) GASTR-ESOPH RFLX DS ESPHGTS W/O BLD; Translations: [GASTR-ESOPH RFLX DS ESPHGTS W/O BLD] Onset: 2 Unclassified (1 source) CONTACT W/AND (SUSP) EXPOS COVID-19; Translations: [CONTACT W/AND (SUSP) EXPOS COVID-19] Onset: 2 Unclassified (7 sources) Pain of knee region 01-07-2023 Unclassified (4 sources) Patient encounter status 01-07-2023 Unclassified (3 sources) Drug therapy finding 10-28-2023 Unclassified (3 sources) Obstructive hydronephrosis 10-28-2023 Past or Other Problems Problem Classification Problem Date Documented Da te Episodic/Chronic Abdominal pain (7 sources) Left lower quadrant pain; Translations: [Left lower quadrant pain] Onset: 01-28-2022 Episodic Other connective tissue disease (1 source) Fibromyalgia; Translations: [FIBROMYALGIA] Onset: 03-27-2022 Episodic Other gastrointestinal disorders (1 source) Dysphagia, unspecified; Translations: [DYSPHAGIA UNSPECIFIED] Onset: 03-27-2022 Episodic Other gastrointestinal disorders (1 source) Change in bowel habit; Translations: [CHANGE IN BOWEL HABIT] Onset: 03-27-2022 Episodic Residual codes; unclassified (1 source) Early satiety; Translations: [EARLY SATIETY] Onset: 03-27-2022 Episodic Residual codes; unclassified (1 source) Family history of malignant neoplasm of digestive organs; Translations: [FAM HX MALIG NEOPLASM DIGESTIV ORGN] Onset: 03-27-2022 Episodic Residual codes; unclassified (1 source) Acquired absence of other specified parts of digestive tract; Translations: [ACQ ABSENCE OTH PART DIGESTV TRACT] Onset: 03-27-2022 Episodic Results Test Name Value Interpretation Reference Range Facil [facility] 11-24-19 [facility] Case Information Case Priority: None Programs: -- Referral Source: Cytometry Technologist Referral Reason: Disease management Case Type: Chronic Care Management Risk Score: -- Case Status: Active (June 25, 2023) Date Assigned: June 19, 2023 Assigned By: Clay Tavarez Date Enrolled: June 25, 2023 Assigned Primary Personnel: Clay Tavarez Assigned Secondary Personnel: -- Case Physician: Román Feliz MD Ongoing Allergic rhinitis, seasonal Anticoagulated Anxiety BMI 27.0-27.9,adult Change in bowel habits Chronic GERD Depression with anxiety Diverticulosis Endometritis Family history of colon cancer in father Fibromyalgia Former smoker Gross hematuria Hiatal hernia History of depression History of diverticulitis History of nephrolithiasis Impaired ambulation Kidney stones Knee pain, right Lupus Migraines OA (osteoarthritis) Osteopenia Persistent atrial fibrillation Primary fibrositis Pure hypercholesterolemia Severe episode of recurrent major depressive disorder, without psychotic features Ureteral stone with hydronephrosis Urinary incontinence Vitamin D deficiency Historical No qualifying data Procedure/Surgical History Arthroplasty of the hip (07/07/2016), Colonoscopy (11/23/2014), EGD - Esophagogastroduodenoscopy (11/23/2014), Arthroplasty of the hip, Cholecystectomy, Colonoscopy, Tubal ligation, Vaginal total hysterectomy. Home Medications atorvastatin 10 mg Tab, See Instructions, 1 refills busPIRone 5 mg Tab, See Instructions celecoxib 400 mg oral capsule, 400 mg= 1 cap(s), Oral, Daily, 4 refills cyclobenzaprine, 5 mg, Oral, Bedtime, PRN D3, 50 mcg, Oral, Daily Eliquis 5 mg oral tablet, See Instructions Handicap Placard, 6 months, See Instructions metoprolol tartrate 100 mg Tab, 100 mg= 1 tab(s), Oral, BID, 3 refills Multi Vitamin+, 1 TABLET, Oral, Daily olanzapine 5 mg Tab, See Instructions PreserVision AREDS, 1 tablet, Oral, Daily tamsulosin 0.4 mg Cap, 0.4 mg= 1 cap(s), Oral, Daily Allergies Adhesive Bandage (Unknown) codeine (Unknown) iodine (Unknown) penicillin (Unknown) Social History Alcohol - Denies Alcohol Use, 01/28/2022 Household alcohol concerns: No., 10/16/2022 Substance Abuse - Denies Substance Abuse, 01/28/2022 Tobacco - Denies Tobacco Use, 09/03/2022 Former smoker, quit more than 30 days ago Tobacco Use:. Never Smokeless Tobacco Use:. Cigarettes, 3 per day. Started age 16.0 Years. Stopped age 36 Years. Household tobacco concerns: No. Yes, 11/13/2023 Family History Heart disease: Mother. Primary malignant neoplasm of colon: Father. Primary malignant neoplasm of lung: Brother. Screenings and Assessments 06/25/23 14:04:00 Result Name Value Comment [facility] Program Enrollment Verbally agreed to receive [facility] services [facility] Written Consent Written consent in progress [facility] Verbal Consent By Self 06/25/23 13:00:00 Result Name Value Comment HIPPA Verified Type of Contact Telephone Information Given by Self CM Preferred Spoken Language Ghanaian CM Preferred Written Language Ghanaian Preferred Communication Mode Verbal Ability to Read/Write Able to read, Able to write Preferred Salutation Certified Paralegal Called No Preferred Method of Contact Cell Cell Phone [phone] Best Time to Visit or Contact 1-5 pm Best Day to Visit or Contact No preference Appointment Reminders Other secured messaging Preferred Way to Send PHI Other secured messaging Preferred Mailing Address [address] [place] [address], [phone] Able to Read Ghanaian Able to read Ghanaian Learning Style Pref Patient None Barriers to Learning Hearing deficit, Memory problems Response to Current Year Correct Response to Current Month Correct Response to Current Time Correct Count Backward 20 to 1 Correct State Months in Reverse Order 2 Or more errors Repeat Memory Phrase Correct Lives In Multilevel home Number in Household 2 Sleeping Arrangement Own bed, in room alone Immediate Needs or Current Concerns Transportation Support System Family member(s), Friend(s) Special Services and Resources Counseling, Other services or resources Primary Sewing Room Supervisor of Home Medication Self Medication Adherence Method Other medication adherence support Current DME at Home No Home Equipment, Anticipated Cane, Shower chair, Walker - front wheeled Currently Receiving Skilled Services No Skilled Service Needs Anticipated No Home Barriers None Employment Status (more content not included)... [facility] Heart and Vascular Office/Cl inic Noteon 11-13-2023 Heart and Vascular Office/Clinic Note Heart and Vascular Office/Clinic Note Chief Complaint established patient here for cardiac clearance History of Present Illness The patient is a 68-year-old female with past cardiac history of paroxysmal atrial fibrillation on Eliquis. She presents today for cardiac evaluation before planned lithotripsy. She is feeling well overall. Complains of fatigue, denies any chest pain or shortness of breath. ECG today demonstrates sinus bradycardia 55 bpm with no evidence of ST-T wave abnormalities, consistent with ischemia. Review of Systems ROS - Provider Constitutional: no fever, no chills, yes fatigue Skin:no rash, no lesions ENMT: no ear pain, no sore throat, no congestion. Respiratory: no shortness of breath, no cough, no wheezing. Cardiovascular: no chest pain, no palpitations, no edema. Gastrointestinal: no nausea, no vomiting, no diarrhea, no GI bleeding. Genitourinary: no dysuria, no frequencyno hematuria Musculoskeletal: no back pain, no trauma. Neurologic: no headache, no dizziness, no numbness, no weakness. Psychiatric: no sleeping problems, no irritability, no mood swings/depression. Heme/Lymph: no bleeding tendency, no bruising tendency, no petechiae, Allergy/Immuno logic: no seasonal allergies, no food allergies, no recurrent infections Physical Exam Vitals & Measurements HR: 62(Peripheral) RR: 99 BP: 108/60 SpO2: 16% HT: 68 in HT: 172 cm WT: 72 kg WT: 158.4 lb BMI: 24.34 General: alert, no acute distress Neck: Supple, noJVD nocarotid bruit Cardiovascular: regular rate and rhythm, no murmur normal peripheral perfusion Respiratory: Lungs CTAB, respirations non labored Extremities: no edema left lower extremity. no edema right lower extremity Neurological: oriented x 4, LOC appropriate for age, speech normal Skin: Warm, dry, intact- no rash or concerning lesions Procedure ECG Assessment/Plan 1. Persistent atrial fibrillation (I48.19: Other persistent atrial fibrillation) The patient is actually having paroxysmal atrial fibrillation. She is in normal sinus rhythm now. Continue current therapy. 2. Preoperative cardiovascular examination (Z01.810: Encounter for preprocedural cardiovascular examination) No cardiac contraindications for an upcoming urological procedure Afib (I48.91: Unspecified atrial fibrillation) Ordered: ECG 12 Lead Adult Follow-up No qualifying data available 1 year Problem List/Past Medical History Ongoing Allergic rhinitis, seasonal Anticoagulated Anxiety BMI 27.0-27.9,adult Change in bowel habits Chronic GERD Depression with anxiety Diverticulosis Endometritis Family history of colon cancer in father Fibromyalgia Former smoker Gross hematuria Hiatal hernia History of depression History of diverticulitis History of nephrolithiasis Impaired ambulation Kidney stones Knee pain, right Lupus Migraines OA (osteoarthritis) Osteopenia Persistent atrial fibrillation Primary fibrositis Pure hypercholesterolemia Severe episode of recurrent major depressive disorder, without psychotic features Ureteral stone with hydronephrosis Urinary incontinence Vitamin D deficiency Historical No qualifying data Procedure/Surgical History Arthroplasty of the hip (07/07/2016), Colonoscopy (11/23/2014), EGD - Esophagogastroduodenoscopy (11/23/2014), Arthroplasty of the hip, Cholecystectomy, Colonoscopy, Tubal ligation, Vaginal total hysterectomy. Medications atorvastatin 10 mg Tab, See Instructions, 1 refills busPIRone 5 mg Tab, See Instructions celecoxib 400 mg oral capsule, 400 mg= 1 cap(s), Oral, Daily, 4 refills cyclobenzaprine, 5 mg, Oral, Bedtime, PRN D3, 50 mcg, Oral, Daily Eliquis 5 mg oral tablet, See Instructions Handicap Placard, 6 months, See Instructions metoprolol tartrate 100 mg Tab, 100 mg= 1 tab(s), Oral, BID, 3 refills Multi Vitamin+, 1 TABLET, Oral, Daily olanzapine 5 mg Tab, 5 mg= 1 tab(s), Oral, Daily PreserVision AREDS, 1 tablet, Oral, Daily tamsulosin 0.4 mg Cap, 0.4 mg= 1 cap(s), Oral, Daily Allergies Adhesive Bandage (Unknown) codeine (Unknown) iodine (Unknown) penicillin (Unknown) Social History Alcohol - Denies Alcohol Use, 01/28/2022 Household alcohol concerns: No., 10/16/2022 Substance Abuse - Denies Substance Abuse, 01/28/2022 Tobacco - Denies Tobacco Use, 09/03/2022 Former smoker, quit more than 30 days ago Tobacco Use:. Never Smokeless Tobacco Use:. Cigarettes, 3 per day. Started age 16.0 Years. Stopped age 36 Years. Household tobacco concerns: No. Yes, 11/13/2023 Family History Heart disease: Mother. Primary malignant neoplasm of colon: Father. Primary malignant neoplasm of lung: Brother. Immunizations Vaccine Date Status Comments zoster vaccine, inactivated 05/25/2023 Recorded influenza virus vaccine, inactivated 01/07/2023 Given zoster vaccine, inactivated 01/07/2023 Recorded influenza virus vaccine, inactivated - Not Given Patient Refuses in (more content not included)... [facility] Comment on above: Result Comment: Elec tronically Signed By: Janeen GREGG, Elvis Castro\.br\Date and Time Signed: 11/13/23 15:15 EDT Ambulatory Visit Summaryon 0 10-28-2023 Ambulatory Visit Summary Ambulatory Visit Summary MARTHA DALEY :1955 Visit Date:10/28/2023 Ambulatory Visit Instructions Your Diagnosis Ureteral stone with hydronephrosis Kidney stones Gross hematuria Former smoker Anticoagulated These Are Your Goals Symptoms of Depression will be Reduced Interventions: Keep follow up appoinments as scheduled with PCP and BH - Progressing Learn About Triggers, Prevention and Management - Progressing Learn Ways to Self-Manage Depression - Progressing Learn to Recognize Signs of Depression - Progressing Review Education Material - Done Take Medications as Prescribed - Progressing Prevent complications from Diverticulitis/IBS Interventions: Eat well balanced diet high in fiber and limit red-meats such as beef, pork, or gomez - Progressing Increase physical acitivity; 3 days per week, try to get 30 minutes each time - Progressing Keep follow up visits as scheduled by your provider - Progressing Maintain a healthy BMI - Progressing Review Educational Material - Done Maintain Therapeutic HR and Prevent Complications from Atrial Fibrillation - Progressing Interventions: Keep scheduled f/u as scheduled by your provider and complete all testing as suggested by provider - Progressing Learn to recognize symptoms of afib and when to seek medical attention/ report to provider - Progressing Review Educational Material Take medications as prescribed - Progressing Complications of Chronic Pain are Reduced Interventions: Engage in one new therapy every 3 months such as: yoga, meditation, massage, or acupuncture - Progressing Engage in regular exercise - Progressing Keep follow up appointments as scheduled with provider - Progressing Review Educational Material - Done Take medications as prescribed - Progressing Use of alternatives to medicaine such as: heating pad or ice as needed - Progressing Your Care Team Attending Physician - Lisa Ramírez MD Primary Care Physician - Román Feliz MD This Is Your Medications List tamsulosin (tamsulosin 0.4 mg Cap) Contact prescribing physician if questions or concerns Misc Prescription (Handicap Placard, 6 months) apixaban (Eliquis 5 mg oral tablet) atorvastatin (atorvastatin 10 mg Tab) busPIRone (busPIRone 5 mg Tab) celecoxib (celecoxib 400 mg oral capsule) cholecalciferol (D3) cyclobenzaprine metoprolol (metoprolol tartrate 100 mg Tab) multivitamin (Multi Vitamin+) multivitamin with minerals (PreserVision AREDS) olanzapine (olanzapine 5 mg Tab) Procedures Performed Arthroplasty of the hip (07/07/2016), Colonoscopy (11/23/2014), EGD - Esophagogastroduodenoscopy (11/23/2014), Arthroplasty of the hip, Cholecystectomy, Colonoscopy, Tubal ligation, Vaginal total hysterectomy. Discharge Vitals Heart Rate (Peripheral) 70 Respiratory Rate 16 Blood Pressure 132/74 Height 173 cm Height 68 in Weight 72.5 kg Weight 159.5 lb BMI 24.22 What to do next Scheduled Follow-Up Appointments Thursday 3:00 PM EDT With: Janeen GREGG, Elvis Castro Where: [facility] You Need to Schedule the Following Appointments Follow Up with Darrell GREGG, Lisa Eckert, URL, [facility]RO When: Where: [address] [place] [address]- [phone] Medications What How Much When Why Instructions New tamsulosin (tamsulosin 0.4 mg Cap) 1 Capsules By Mouth Every day Pickup at [facility]/pharmacy #[id number] Unchanged apixaban (Eliquis 5 mg oral tablet) 1 Tablets By Mouth 2 times a day Contact prescribing physician if questions or concerns Unchanged atorvastatin (atorvastatin 10 mg Tab) See instructions TAKE ONE TABLET BY MOUTH DAILY Contact prescribing physician if questions or concerns Unchanged busPIRone (busPIRone 5 mg Tab) See instructions TAKE 1 TABLET BY MOUTH THREE TIMES A DAY Contact prescribing physician if questions or concerns Unchanged celecoxib (celecoxib 400 mg oral capsule) 1 Capsules By Mouth Every day Contact prescribing physician if questions or concerns Unchanged cholecalciferol (D3) 50 Microgram By Mouth Every day Contact prescribing physician if questions or concerns Unchanged cyclobenzaprine 5 Milligram By Mouth At bedtime as needed for Spasm Contact prescribing physician if questions or concerns Unchanged metoprolol (metoprolol tartrate 100 mg Tab) 1 Tablets By Mouth 2 times a day Contact prescribing physician if questions or concerns Unchanged Misc Prescription (Handicap Placard, 6 months) See instructions Anxiety Knee pain, right BMI 28.0-28.9,adult Class 1 obesity due to excess calories in adult Handicap Placard, 6 month Contact prescribing physician if questions or concerns Unchanged multivitamin (Multi Vitamin+) 1 TABLET By Mouth Every day Contact prescribing physician if questions or concerns Unchanged multivitamin with minerals (PreserVision AREDS) 1 tablet By Mouth Every day Contact prescribing physician if questions or concerns Unchanged elbert (more content not included)... [facility] Urology Office/Clinic Noteon 10-28-2023 Urology Office/Clinic Note Urology Office/Clinic Note Chief Complaint [employer]TELL[employer] *ER f/u HPI Staff 68 year old female new patient seen in [facility] ER 10/15 due to hematuria. Pt has never before been seen in our office. CT abdomen pelvis wo con done 10/16/23. *mid LT 5 x4 ureteral calculus with moderate hydronephrosis. Here today to f/u w/MARY BETH & KUB 10/23/23 Intermittent Blood in urine 1-2m prior to going to ER. Denies Fam Hx of Bladder Cancer. + Hx of Smoking. +Hx of Kidney Stones yrs ago. Does not remember passing, denies surgical intervention. Was straining urine after ER. Did pass granules overtime. Did not bring with her. Slight pain on Lt side. Visible blood in urine last seen yesterday. History of Present Illness Tests reviewed: reviewed UA, External records: ER notes and labs, CT scan, KUB, MARY BTEH I have reviewed the previous health record information and history for this patient from external providers. I have reviewed and verified the staff HPI to be accurate for this encounter. Review of Systems PHQ Score Initial Depression Screen Score: 0 SCORE ROS - Provider Constitutional: denies weight loss, denies hot flashes. Eyes: denies eye problems. Gastrointestinal: denies nausea, denies vomiting. Cardiovascular: denies chest pain or angina. Integumentary: no dryness Musculoskeletal: denies musculoskeletal symptoms. ENMT: denies otolaryngeal symptoms. Respiratory: no shortness of breath. Heme/Lymph: denies easy bleeding tendency, denies easy bruising tendency. Psychiatric: no confusion, no anxiety. Genitourinary: See HPI. Physical Exam Vitals & Measurements HR: 70(Peripheral) RR: 16 BP: 132/74 HT: 68 in HT: 173 cm WT: 72.5 kg WT: 159.5 lb BMI: 24.22 General Appearance: alert , no acute distress, well nourished, well developed female. Head: normocephalic . Eyes: normal orbit and globe. ENMT: normal examination of external ears. Chest: symmetric chest rise, respirations non labored . Cardiovascular: regular rate and rhythm. Abdomen: soft , non distended, no tenderness Genitourinary: bladder nonpalpable, no flank tenderness. Skin: warm, dry, no bruising. Psychiatric: cooperative, affect appropriate for age, normal judgement, euthymic mood. Assessment/Plan 68 yo female new pt here for f/u to ER visit for L ureteral calculus with hydro and hematuria. Pt has a poor memory, states she lives on own. BBS 16. 1. Ureteral stone with hydronephrosis (N13.2: Hydronephrosis with renal and ureteral calculous obstruction) [facility] ER visit 10/16/23 c/o hematuria and L flank pain. Given Tamsulosin and urine strainer. Advised pt discuss stopping Eliquis with desk maker. CT AP wo con - Moderate L hydroureteronephrosis secondary to a 5 x 4 mm mid L ureteral calculus. BL 1 mm stones. Renal fxn - BUN 12. Cr 0.94. eGFR 59. UA neg for UTI MARY BETH 10/23/23 [facility] - 3 mm nonobstructing R renal stone. Several nonobstructing L renal stones, largest 5 mm. Moderate L hydro. KUB 10/23/23 [facility] - No visible renal or ureteral calcifications. Reviewed imaging results with pt. Has ongoing, intermittent L flank pain, radiating into abdomen. Pain is unchanged in location over the past 2 wks. Denies taking pain medication. Reports body shakes, unsure if this is related to pain from stone. Discussed management options including medical expulsive therapy (MET) x 4-6 week vs intervention including extracorporeal shockwave lithotripsy (despite stones not being visible on XR) vs ureteroscopy with laser lithotripsy/stone basket extraction possible stent. Risks/benefits of each were discussed including but not limited to: MET- renal damage, pain or infection; ESWL- bleeding, hematoma, pain, infection, inability to break up the stone, ureteral obstruction, cardiac arrhythmias, damage to surrounding structures and need for additional procedures; ureteroscopy - bleeding, pain, infection, damage to surrounding structures, ureteral perforation, stricture, inability to treat the stone and need for additional procedures. If a stent is placed, pt understands this is not permanent and needs to be removed or exchanged within 3 months to prevent encrustation, infection, permanent renal damage and need for more invasive procedures. Pt would like to proceed with MET. -Increase water intake -Present to ER if experiencing N&V, fever, or chills -Strain urine -Cont MET x 3 weeks, refill tamsulosin sent -If no stone passage within 3 weeks, will proceed with Cystoscopy with Left Retrogrades, Left Ureteroscopy, Left Laser Litho, Left Stone Basket, Left possible stent placement. The procedure risks, benefits, alternatives and complications have been discussed with the patient. These include but are not limited to bleeding, pain, infection, ureteral perforation, extravasation, stricture formation, sepsis, obstruction, inability to reach the stone, inability to fragment the stone, and inability to retrieve all stone fragments. The need for ancillary procedures such as stent placement and (more content not included)... [facility] Comment on above: Result Comment: Elec tronically Signed By: Darrell GREGG, Lisa Eckert\.lorene\Date and Time Signed: 10/28/23 09:04 EDT [facility] 10-27-19 [facility] Case Information Case Priority: None Programs: -- Referral Source: Cytometry Technologist Referral Reason: Disease management Case Type: Chronic Care Management Risk Score: -- Case Status: Active (June 25, 2023) Date Assigned: June 19, 2023 Assigned By: Clay Tavarez Date Enrolled: June 25, 2023 Assigned Primary Personnel: Clay Tavarez Assigned Secondary Personnel: -- Case Physician: Román Feliz MD Problems Ongoing Allergic rhinitis, seasonal Anxiety BMI 27.0-27.9,adult Change in bowel habits Chronic GERD Depression with anxiety Diverticulosis Endometritis Family history of colon cancer in father Fibromyalgia Hiatal hernia History of depression History of diverticulitis History of nephrolithiasis Impaired ambulation Knee pain, right Lupus Migraines OA (osteoarthritis) Osteopenia Persistent atrial fibrillation Primary fibrositis Pure hypercholesterolemia Severe episode of recurrent major depressive disorder, without psychotic features Urinary incontinence Vitamin D deficiency Historical No qualifying data Procedure/Surgical History Arthroplasty of the hip (07/07/2016), Colonoscopy (11/23/2014), EGD - Esophagogastroduodenoscopy (11/23/2014), Arthroplasty of the hip, Cholecystectomy, Colonoscopy, Tubal ligation, Vaginal total hysterectomy. Home Medications atorvastatin 10 mg Tab, See Instructions, 1 refills busPIRone 5 mg Tab, See Instructions celecoxib 400 mg oral capsule, 400 mg= 1 cap(s), Oral, Daily, 4 refills cyclobenzaprine, 5 mg, Oral, Bedtime, PRN D3, 50 mcg, Oral, Daily Eliquis 5 mg oral tablet, 5 mg= 1 tab(s), Oral, BID, 1 refills Handicap Placard, 6 months, See Instructions metoprolol tartrate 100 mg Tab, 100 mg= 1 tab(s), Oral, BID, 3 refills Multi Vitamin+, 1 TABLET, Oral, Daily olanzapine 5 mg Tab, 5 mg= 1 tab(s), Oral, Daily PreserVision AREDS, 1 tablet, Oral, Daily Allergies Adhesive Bandage (Unknown) codeine (Unknown) iodine (Unknown) penicillin (Unknown) Social History Alcohol - Denies Alcohol Use, 01/28/2022 Household alcohol concerns: No., 10/16/2022 Substance Abuse - Denies Substance Abuse, 01/28/2022 Tobacco - Denies Tobacco Use, 09/03/2022 Former smoker, quit more than 30 days ago Tobacco Use:. Never Smokeless Tobacco Use:. Cigarettes, 3 per day. Started age 16.0 Years. Stopped age 36 Years. Household tobacco concerns: No., 08/17/2023 Family History Heart disease: Mother. Primary malignant neoplasm of colon: Father. Primary malignant neoplasm of lung: Brother. Screenings and Assessments 06/25/23 14:04:00 Result Name Value Comment CCM Program Enrollment Verbally agreed to receive CCM services CCM Written Consent Written consent in progress CCM Verbal Consent By Self 06/25/23 13:00:00 Result Name Value Comment HIPPA Verified Type of Contact Telephone Information Given by Self CM Preferred Spoken Language Ghanaian CM Preferred Written Language Ghanaian Preferred Communication Mode Verbal Ability to Read/Write Able to read, Able to write Preferred Salutation Certified Paralegal Called No Preferred Method of Contact Cell Cell Phone [phone] Best Time to Visit or Contact 1-5 pm Best Day to Visit or Contact No preference Appointment Reminders Other secured messaging Preferred Way to Send PHI Other secured messaging Preferred Mailing Address [address] [place] [address] Able to Read Ghanaian Able to read Ghanaian Learning Style Pref Patient None Barriers to Learning Hearing deficit, Memory problems Response to Current Year Correct Response to Current Month Correct Response to Current Time Correct Count Backward 20 to 1 Correct State Months in Reverse Order 2 Or more errors Repeat Memory Phrase Correct Lives In Multilevel home Number in Household 2 Sleeping Arrangement Own bed, in room alone Immediate Needs or Current Concerns Transportation Support System Family member(s), Friend(s) Special Services and Resources Counseling, Other services or resources Primary Sewing Room Supervisor of Home Medication Self Medication Adherence Method Other medication adherence support Current DME at Home No Home Equipment, Anticipated Cane, Shower chair, Walker - front wheeled Currently Receiving Skilled Services No Skilled Service Needs Anticipated No Home Barriers None Employment Status Disabled Financial Issues None Sources of Income Social Security Pt/CG Understand Health Plan Bene (more content not included)... [facility] Population Health 10-07-19 Population Health Case Information Case Priority: None Programs: -- Referral Source: Cytometry Technologist Referral Reason: Disease management Case Type: Chronic Care Management Risk Score: -- Case Status: Active (June 25, 2023) Date Assigned: June 19, 2023 Assigned By: Clay Tavarez Date Enrolled: June 25, 2023 Assigned Primary Personnel: Clay Tavarez Assigned Secondary Personnel: -- Case Physician: Román Feliz MD Ongoing Allergic rhinitis, seasonal Anxiety BMI 27.0-27.9,adult Change in bowel habits Chronic GERD Depression with anxiety Diverticulosis Endometritis Family history of colon cancer in father Fibromyalgia Hiatal hernia History of depression History of diverticulitis History of nephrolithiasis Impaired ambulation Knee pain, right Lupus Migraines OA (osteoarthritis) Osteopenia Persistent atrial fibrillation Primary fibrositis Pure hypercholesterolemia Severe episode of recurrent major depressive disorder, without psychotic features Urinary incontinence Vitamin D deficiency Historical No qualifying data Procedure/Surgical History Arthroplasty of the hip (07/07/2016), Colonoscopy (11/23/2014), EGD - Esophagogastroduodenoscopy (11/23/2014), Arthroplasty of the hip, Cholecystectomy, Colonoscopy, Tubal ligation, Vaginal total hysterectomy. Home Medications atorvastatin 10 mg Tab, See Instructions, 1 refills busPIRone 5 mg Tab, See Instructions celecoxib 400 mg oral capsule, 400 mg= 1 cap(s), Oral, Daily cyclobenzaprine, 5 mg, Oral, Bedtime, PRN D3, 50 mcg, Oral, Daily Eliquis 5 mg oral tablet, 5 mg= 1 tab(s), Oral, BID, 1 refills Handicap Placard, 6 months, See Instructions metoprolol tartrate 100 mg Tab, 100 mg= 1 tab(s), Oral, BID, 3 refills Multi Vitamin+, 1 TABLET, Oral, Daily olanzapine 5 mg Tab, 5 mg= 1 tab(s), Oral, Daily PreserVision AREDS, 1 tablet, Oral, Daily Allergies Adhesive Bandage (Unknown) codeine (Unknown) iodine (Unknown) penicillin (Unknown) Social History Alcohol - Denies Alcohol Use, 01/28/2022 Household alcohol concerns: No., 10/16/2022 Substance Abuse - Denies Substance Abuse, 01/28/2022 Tobacco - Denies Tobacco Use, 09/03/2022 Former smoker, quit more than 30 days ago Tobacco Use:. Never Smokeless Tobacco Use:. Cigarettes, 3 per day. Started age 16.0 Years. Stopped age 36 Years. Household tobacco concerns: No., 08/17/2023 Family History Heart disease: Mother. Primary malignant neoplasm of colon: Father. Primary malignant neoplasm of lung: Brother. Screenings and Assessments 06/25/23 14:04:00 Result Name Value Comment CCM Program Enrollment Verbally agreed to receive [facility] services CCM Written Consent Written consent in progress CCM Verbal Consent By Self 06/25/23 13:00:00 Result Name Value Comment HIPPA Verified Type of Contact Telephone Information Given by Self CM Preferred Spoken Language Ghanaian CM Preferred Written Language Ghanaian Preferred Communication Mode Verbal Ability to Read/Write Able to read, Able to write Preferred Salutation Certified Paralegal Called No Preferred Method of Contact Cell Cell Phone [phone] Best Time to Visit or Contact 1-5 pm Best Day to Visit or Contact No preference Appointment Reminders Other secured messaging Preferred Way to Send PHI Other secured messaging Preferred Mailing Address [address] [place] [address], [facility] Able to Read Ghanaian Able to read Ghanaian Learning Style Pref Patient None Barriers to Learning Hearing deficit, Memory problems Response to Current Year Correct Response to Current Month Correct Response to Current Time Correct Count Backward 20 to 1 Correct State Months in Reverse Order 2 Or more errors Repeat Memory Phrase Correct Lives In Multilevel home Number in Household 2 Sleeping Arrangement Own bed, in room alone Immediate Needs or Current Concerns Transportation Support System Family member(s), Friend(s) Special Services and Resources Counseling, Other services or resources Primary Sewing Room Supervisor of Home Medication Self Medication Adherence Method Other medication adherence support Current DME at Home No Home Equipment, Anticipated Cane, Shower chair, Walker - front wheeled Currently Receiving Skilled Services No Skilled Service Needs Anticipated No Home Barriers None Employment Status Disabled Financial Issues None Sources of Income Social Security Pt/CG Understand Health Plan Benefits Yes Benefits A (more content not included)... Normal [facility] 09-22-19 [facility] Case Information Case Priority: None Programs: -- Referral Source: Cytometry Technologist Referral Reason: Disease management Case Type: Chronic Care Management Risk Score: -- Case Status: Active (June 25, 2023) Date Assigned: June 19, 2023 Assigned By: Clay Tavarez Date Enrolled: June 25, 2023 Assigned Primary Personnel: Clay Tavarez Assigned Secondary Personnel: -- Case Physician: Tray GREGG, Román Wilcox Problems Ongoing Allergic rhinitis, seasonal Anxiety BMI 27.0-27.9,adult Change in bowel habits Chronic GERD Depression with anxiety Diverticulosis Endometritis Family history of colon cancer in father Fibromyalgia Hiatal hernia History of depression History of diverticulitis History of nephrolithiasis Impaired ambulation Knee pain, right Lupus Migraines OA (osteoarthritis) Osteopenia Persistent atrial fibrillation Primary fibrositis Pure hypercholesterolemia Severe episode of recurrent major depressive disorder, without psychotic features Urinary incontinence Vitamin D deficiency Historical No qualifying data Procedure/Surgical History Arthroplasty of the hip (07/07/2016), Colonoscopy (11/23/2014), EGD - Esophagogastroduodenoscopy (11/23/2014), Arthroplasty of the hip, Cholecystectomy, Colonoscopy, Tubal ligation, Vaginal total hysterectomy. Home Medications atorvastatin 10 mg Tab, See Instructions, 1 refills busPIRone 5 mg Tab, See Instructions celecoxib 400 mg oral capsule, 400 mg= 1 cap(s), Oral, Daily cyclobenzaprine, 5 mg, Oral, Bedtime, PRN D3, 50 mcg, Oral, Daily Eliquis 5 mg oral tablet, 5 mg= 1 tab(s), Oral, BID, 1 refills Handicap Placard, 6 months, See Instructions metoprolol tartrate 100 mg Tab, 100 mg= 1 tab(s), Oral, BID, 3 refills Multi Vitamin+, 1 TABLET, Oral, Daily olanzapine 5 mg Tab, 5 mg= 1 tab(s), Oral, Daily PreserVision AREDS, 1 tablet, Oral, Daily Allergies Adhesive Bandage (Unknown) codeine (Unknown) iodine (Unknown) penicillin (Unknown) Social History Alcohol - Denies Alcohol Use, 01/28/2022 Household alcohol concerns: No., 10/16/2022 Substance Abuse - Denies Substance Abuse, 01/28/2022 Tobacco - Denies Tobacco Use, 09/03/2022 Former smoker, quit more than 30 days ago Tobacco Use:. Never Smokeless Tobacco Use:. Cigarettes, 3 per day. Started age 16.0 Years. Stopped age 36 Years. Household tobacco concerns: No., 08/17/2023 Family History Heart disease: Mother. Primary malignant neoplasm of colon: Father. Primary malignant neoplasm of lung: Brother. Screenings and Assessments 06/25/23 14:04:00 Result Name Value Comment CCM Program Enrollment Verbally agreed to receive [facility] services CCM Written Consent Written consent in progress CCM Verbal Consent By Self 06/25/23 13:00:00 Result Name Value Comment HIPPA Verified Type of Contact Telephone Information Given by Self CM Preferred Spoken Language Ghanaian CM Preferred Written Language Ghanaian Preferred Communication Mode Verbal Ability to Read/Write Able to read, Able to write Preferred Salutation MrsChiquita Certified Paralegal Called No Preferred Method of Contact Cell Cell Phone [phone] Best Time to Visit or Contact 1-5 pm Best Day to Visit or Contact No preference Appointment Reminders Other secured messaging Preferred Way to Send PHI Other secured messaging Preferred Mailing Address [address] [place] [address], [facility] Able to Read Ghanaian Able to read Ghanaian Learning Style Pref Patient None Barriers to Learning Hearing deficit, Memory problems Response to Current Year Correct Response to Current Month Correct Response to Current Time Correct Count Backward 20 to 1 Correct State Months in Reverse Order 2 Or more errors Repeat Memory Phrase Correct Lives In Multilevel home Number in Household 2 Sleeping Arrangement Own bed, in room alone Immediate Needs or Current Concerns Transportation Support System Family member(s), Friend(s) Special Services and Resources Counseling, Other services or resources Primary Sewing Room Supervisor of Home Medication Self Medication Adherence Method Other medication adherence support Current DME at Home No Home Equipment, Anticipated Cane, Shower chair, Walker - front wheeled Currently Receiving Skilled Services No Skilled Service Needs Anticipated No Home Barriers None Employment Status Disabled Financial Issues None Sources of Income Social Security Pt/CG Understand Health Plan Benefits Yes Benefits A (more content not included)... Normal [facility] 08-24-19 [facility] Case Information Case Priority: None Programs: -- Referral Source: Cytometry Technologist Referral Reason: Disease management Case Type: Chronic Care Management Risk Score: -- Case Status: Active (June 25, 2023) Date Assigned: June 19, 2023 Assigned By: Clay Tavarez Date Enrolled: June 25, 2023 Assigned Primary Personnel: Clay Tavarez Assigned Secondary Personnel: -- Case Physician: Tray GREGG, Román Neville Ongoing Allergic rhinitis, seasonal Anxiety BMI 27.0-27.9,adult Change in bowel habits Chronic GERD Depression with anxiety Diverticulosis Endometritis Family history of colon cancer in father Fibromyalgia Hiatal hernia History of depression History of diverticulitis History of nephrolithiasis Impaired ambulation Knee pain, right Lupus Migraines OA (osteoarthritis) Osteopenia Persistent atrial fibrillation Primary fibrositis Pure hypercholesterolemia Severe episode of recurrent major depressive disorder, without psychotic features Urinary incontinence Vitamin D deficiency Historical No qualifying data Procedure/Surgical History Arthroplasty of the hip (07/07/2016), Colonoscopy (11/23/2014), EGD - Esophagogastroduodenoscopy (11/23/2014), Arthroplasty of the hip, Cholecystectomy, Colonoscopy, Tubal ligation, Vaginal total hysterectomy. Home Medications atorvastatin 10 mg Tab, See Instructions, 1 refills busPIRone 5 mg Tab, See Instructions celecoxib 400 mg oral capsule, 400 mg= 1 cap(s), Oral, Daily cyclobenzaprine, 5 mg, Oral, Bedtime, PRN D3, 50 mcg, Oral, Daily Eliquis 5 mg oral tablet, 5 mg= 1 tab(s), Oral, BID, 1 refills Handicap Placard, 6 months, See Instructions metoprolol tartrate 100 mg Tab, 100 mg= 1 tab(s), Oral, BID, 3 refills Multi Vitamin+, 1 TABLET, Oral, Daily olanzapine 5 mg Tab, 5 mg= 1 tab(s), Oral, Daily PreserVision AREDS, 1 tablet, Oral, Daily Allergies Adhesive Bandage (Unknown) codeine (Unknown) iodine (Unknown) penicillin (Unknown) Social History Alcohol - Denies Alcohol Use, 01/28/2022 Household alcohol concerns: No., 10/16/2022 Substance Abuse - Denies Substance Abuse, 01/28/2022 Tobacco - Denies Tobacco Use, 09/03/2022 Former smoker, quit more than 30 days ago Tobacco Use:. Never Smokeless Tobacco Use:. Cigarettes, 3 per day. Started age 16.0 Years. Stopped age 36 Years. Household tobacco concerns: No., 08/17/2023 Family History Heart disease: Mother. Primary malignant neoplasm of colon: Father. Primary malignant neoplasm of lung: Brother. Screenings and Assessments 06/25/23 14:04:00 Result Name Value Comment [facility] Program Enrollment Verbally agreed to receive [facility] services [facility] Written Consent Written consent in progress CCM Verbal Consent By Self 06/25/23 13:00:00 Result Name Value Comment HIPPA Verified Type of Contact Telephone Information Given by Self CM Preferred Spoken Language Ghanaian CM Preferred Written Language Ghanaian Preferred Communication Mode Verbal Ability to Read/Write Able to read, Able to write Preferred Salutation MrsChiquita Certified Paralegal Called No Preferred Method of Contact Cell Cell Phone [phone] Best Time to Visit or Contact 1-5 pm Best Day to Visit or Contact No preference Appointment Reminders Other secured messaging Preferred Way to Send PHI Other secured messaging Preferred Mailing Address [address] [place] [address], [id number] Able to Read Ghanaian Able to read Ghanaian Learning Style Pref Patient None Barriers to Learning Hearing deficit, Memory problems Response to Current Year Correct Response to Current Month Correct Response to Current Time Correct Count Backward 20 to 1 Correct State Months in Reverse Order 2 Or more errors Repeat Memory Phrase Correct Lives In Multilevel home Number in Household 2 Sleeping Arrangement Own bed, in room alone Immediate Needs or Current Concerns Transportation Support System Family member(s), Friend(s) Special Services and Resources Counseling, Other services or resources Primary Sewing Room Supervisor of Home Medication Self Medication Adherence Method Other medication adherence support Current DME at Home No Home Equipment, Anticipated Cane, Shower chair, Walker - front wheeled Currently Receiving Skilled Services No Skilled Service Needs Anticipated No Home Barriers None Employment Status Disabled Financial Issues None Sources of Income Social Security Pt/CG Understand Health Plan Benefits Yes Benefits A (more content not included)... Normal [facility] Ambulatory Visit Summaryon 0 08-17-2023 Ambulatory Visit Summary MARTHA DALEY :1955 Visit Date:08/17/2023 Ambulatory Visit Instructions Your Diagnosis Anxiety Persistent atrial fibrillation Chronic GERD Depression with anxiety BMI 24.0-24.9, adult Former smoker These Are Your Goals Symptoms of Depression will be Reduced Interventions: Keep follow up appoinments as scheduled with PCP and BH - Progressing Learn About Triggers, Prevention and Management - Progressing Learn Ways to Self-Manage Depression - Progressing Learn to Recognize Signs of Depression - Progressing Review Education Material - Done Take Medications as Prescribed - Progressing Prevent complications from Diverticulitis/IBS Interventions: Eat well balanced diet high in fiber and limit red-meats such as beef, pork, or gomez - Progressing Increase physical acitivity; 3 days per week, try to get 30 minutes each time - Progressing Keep follow up visits as scheduled by your provider - Progressing Maintain a healthy BMI - Progressing Review Educational Material Maintain Therapeutic HR and Prevent Complications from Atrial Fibrillation - Progressing Interventions: Keep scheduled f/u as scheduled by your provider and complete all testing as suggested by provider - Progressing Learn to recognize symptoms of afib and when to seek medical attention/ report to provider - Progressing Review Educational Material Take medications as prescribed - Progressing Complications of Chronic Pain are Reduced Interventions: Engage in one new therapy every 3 months such as: yoga, meditation, massage, or acupuncture - Progressing Engage in regular exercise - Progressing Keep follow up appointments as scheduled with provider - Progressing Review Educational Material - Done Take medications as prescribed - Progressing Use of alternatives to medicaine such as: heating pad or ice as needed - Progressing Your Care Team Attending Physician - Román Feliz MD Primary Care Physician - Román Feliz MD This Is Your Medications List Misc Prescription (Handicap Placard, 6 months) apixaban (Eliquis 5 mg oral tablet) atorvastatin (atorvastatin 10 mg Tab) busPIRone (busPIRone 5 mg Tab) celecoxib (celecoxib 400 mg oral capsule) cholecalciferol (D3) cyclobenzaprine metoprolol (metoprolol tartrate 100 mg Tab) multivitamin (Multi Vitamin+) multivitamin with minerals (PreserVision AREDS) olanzapine (olanzapine 5 mg Tab) Procedures Performed Arthroplasty of the hip (07/07/2016), Colonoscopy (11/23/2014), EGD - Esophagogastroduodenoscopy (11/23/2014), Arthroplasty of the hip, Cholecystectomy, Colonoscopy, Tubal ligation, Vaginal total hysterectomy. Discharge Vitals Temperature (Temporal Artery) 37.2 ?C Heart Rate (Peripheral) 68 Respiratory Rate 20 Blood Pressure 110/66 Height 172 cm Height 68 in Weight 73.9 kg Weight 162.58 lb BMI 24.98 What to do next Scheduled Follow-Up Appointments Thursday. 2023 1:00 PM EDT With: Román Feliz MD Where: [place] [phone] \.br\ Medications\.br\ What How Much When Why Instructions\.br \ Unchanged apixaban (Eliquis 5 mg oral tablet) 1 Tablets By Mouth 2 times a day\.br\ Unchanged atorvastatin (atorvastatin 10 mg Tab) See instructions TAKE ONE TABLET BY MOUTH DAILY \.br\ Unchanged busPIRone (busPIRone 5 mg Tab) See instructions TAKE 1 TABLET BY MOUTH THREE TIMES A DAY \.br\ Unchanged celecoxib (celecoxib 400 mg oral capsule) 1 Capsules By Mouth Every day\.br\ Unchanged cholecalciferol (D3) 50 Microgram By Mouth Every day\.br\ Unchanged cyclobenzaprine 5 Milligram By Mouth At bedtime as needed for Spasm\.br\ Unchanged metoprolol (metoprolol tartrate 100 mg Tab) 1 Tablets By Mouth 2 times a day\.br\ Unchanged Misc Prescription (Handicap Placard, 6 months) See instructions Anxiety Knee pain, right BMI 28.0-28.9,adult Class 1 obesity due to excess calories in adult Handicap Juanita, 6 month \.br\ Unchanged multivitamin (Multi Vitamin+) 1 TABLET By Mouth Every day\.br\ Unchanged multivitamin with minerals (PreserVision AREDS) 1 tablet By Mouth Every day\.br\ Unchanged olanzapine (olanzapine 5 mg Tab) 1 Tablets By Mouth Every day\.br\ Allergies\.br\ Adhesive Bandage (Unknown)\.br\ codeine (Unknown)\.br\ iodine (Unknown)\.br\ penicillin (Unknown)\.br\ Problems\.br\ Ongoing - Any problem that you are currently receiving treatment for.\.br\ Allergic rhinitis, seasonal\.br\ Anxiety\.br\ BMI 27.0-27.9,adult\ .br\ Change in bowel habits\.br\ Chronic GERD\.br\ Depression with anxiety\.br\ Diverticulosis\. br\ Endometritis\.br \ Family history of colon cancer in father\.br\ Fibromyalgia\.br \ Hiatal hernia\.br\ History of depression\.br\ History of diverticulitis\. br\ History of nephrolithiasis\ .br\ Impaired ambulation\.br\ Knee pain, right\.br\ Lupus\.br\ Migraines\.br\ OA (osteoarthritis) \.br\ Osteopenia\.br\ Persistent atrial fibrillation\.br \ Primary fibrositis\.br\ Pure hypercholesterol emia\.br\ Severe episode of recurrent major depressive disorder, without psychotic features\.br\ Urinary incontinence\.br \ Vitamin D deficiency\.br\ Patient Survey\.br\ You may receive a survey via text or e-mail asking about your office visit. Please share your experience with us by completing your survey. We appreciate your feedback and thank you for choosing us for your care.\.br\ \.br\ [facility] Family Medicine Office/Clini c Noteon 08-17-2023 Family Medicine Office/Clinic Note HPI Staff Martha is a 67 year old female presenting for one month follow up anxiety Follow up for Mental Status: Medication adherence- Yes, takes medication as prescribed Medication refill needed: no Suicidal thoughts-Not at this time Most recent JANET: 9 Most recent PHQ: 2 questions/concerns: would like her lab results from 08/05 History of Present Illness - Per staff HPI. Review of Systems PHQ Score Initial Depression Screen Score: 2 SCORE Physical Exam Vitals & Measurements T: 37.2 ?C(Temporal Artery) HR: 68(Peripheral) RR: 20 BP: 110/66 SpO2: 98% HT: 68 in HT: 172 cm WT: 73.9 kg WT: 162.58 lb BMI: 24.98 General: alert, no acute distress ENMT: oral mucosa moist, Cardiovascular: irregular rate and rhythm, normal peripheral perfusion Respiratory: Lungs CTA, respirations non labored Extremities: no deformity, no trauma Neurological: oriented x 4, LOC appropriate for age, CN II-XII intact, motor strength equal & normal bilaterally, speech normal Abdomen: Soft, Nontender, Non-distended, + BS Assessment/Plan 1. Anxiety (F41.9: Anxiety disorder, unspecified) - Doing better - Improved - NO issues Ordered: Body Mass Index (BMI) documented 3008F Current tobacco non-user 1036F Depression Screening Negative 3352F Influenza immunization administered or previously received 4274F Most recent diastolic blood pressure <80 mm Hg 3078F Patient screen for fall risk: no falls in last year or 1 fall with no injury in last year 1101F Systolic BP <130 mm Hg (Most Recent) 3074F 2. Persistent atrial fibrillation (I48.19: Other persistent atrial fibrillation) - Rate controlled - Will refill eliquis Ordered: Body Mass Index (BMI) documented 3008F Current tobacco non-user 1036F Depression Screening Negative 3352F Influenza immunization administered or previously received 4274F Most recent diastolic blood pressure <80 mm Hg 3078F Patient screen for fall risk: no falls in last year or 1 fall with no injury in last year 1101F Systolic BP <130 mm Hg (Most Recent) 3074F 3. Chronic GERD (K21.9: Gastro-esophageal reflux disease without esophagitis) - Stable Ordered: Body Mass Index (BMI) documented 3008F Current tobacco non-user 1036F Depression Screening Negative 3352F Influenza immunization administered or previously received 4274F Most recent diastolic blood pressure <80 mm Hg 3078F Patient screen for fall risk: no falls in last year or 1 fall with no injury in last year 1101F Systolic BP <130 mm Hg (Most Recent) 3074F 4. Depression with anxiety (F41.8: Other specified anxiety disorders) - As per number one - Working on a safe place for the patient. Ordered: Body Mass Index (BMI) documented 3008F Current tobacco non-user 1036F Depression Screening Negative 3352F Influenza immunization administered or previously received 4274F Most recent diastolic blood pressure <80 mm Hg 3078F Patient screen for fall risk: no falls in last year or 1 fall with no injury in last year 1101F Systolic BP <130 mm Hg (Most Recent) 3074F 5. BMI 24.0-24.9, adult (Z68.24: Body mass index [BMI] 24.0-24.9, adult) - BMI education uploaded Ordered: Body Mass Index (BMI) documented 3008F Current tobacco non-user 1036F Depression Screening Negative 3352F Influenza immunization administered or previously received 4274F Most recent diastolic blood pressure <80 mm Hg 3078F Patient screen for fall risk: no falls in last year or 1 fall with no injury in last year 1101F Systolic BP <130 mm Hg (Most Recent) 3074F 6. Former smoker (Z87.891: Personal history of nicotine dependence) - Please continue to not smoke. Ordered: Body Mass Index (BMI) documented 3008F Current tobacco non-user 1036F Depression Screening Negative 3352F Influenza immunization administered or previously received 4274F Most recent diastolic blood pressure <80 mm Hg 3078F Patient screen for fall risk: no falls in last year or 1 fall with no injury in last year 1101F Systolic BP <130 mm Hg (Most Recent) 3074F Orders: apixaban, 5 mg = 1 tab(s), Oral, BID, # 60 tab(s), Refills(s) 1, Pharmacy: [facility]/pharmacy #[id number], 172, cm, 08/17/23 13:48:00 EDT, Height/Length Dosing, 73.9, kg, 08/17/23 13:48:00 EDT, Weight Dosing - Working with our Community Health Planning Director living facility to help with placement. Follow-up No qualifying data available Patient Education BMI for Adults Atrial Fibrillation Problem List/Past Medical History Ongoing Allergic rhinitis, seasonal Anxiety BMI 27.0-27.9,adult Change in bowel habits Chronic GERD Depression with anxiety Diverticulosis Endometritis Family history of colon cancer in father Fibromyalgia Hiatal hernia History of depression History of diverticulitis History of nephrolithiasis Impaired ambulation Knee pain, right Lupus Migraines OA (osteoarthritis) Osteopenia Persistent atrial fibrillation Primary fibrositis Pure hypercholesterolemia Severe epi (more content not included)... Normal [facility] Comment on above: Result Comment: Elec tronically Signed By: Tray GREGG, Román Wilcox\.br\Date and Time Signed: 08/17/23 14:17 EDT Patient Educationon 08-17-19 Patient Education Cardiovascular Atrial Fibrillation Atrial fibrillation is a type of irregular or rapid heartbeat (arrhythmia). In atrial fibrillation, the top part of the heart (atria) beats in an irregular pattern. This makes the heart unable to pump blood normally and effectively. The goal of treatment is to prevent blood clots from forming, control your heart rate, or restore your heartbeat to a normal rhythm. If this condition is not treated, it can cause serious problems, such as a weakened heart muscle (cardiomyopathy) or a stroke. What are the causes? This condition is often caused by medical conditions that damage the heart's electrical system. These include: ? High blood pressure (hypertension). This is the most common cause. ? Certain heart problems or conditions, such as heart failure, coronary artery disease, heart valve problems, or heart surgery. ? Diabetes. ? Overactive thyroid (hyperthyroidism). ? Obesity. ? Chronic kidney disease. In some cases, the cause of this condition is not known. What increases the risk? This condition is more likely to develop in: ? Older people. ? People who smoke. ? Athletes who do endurance exercise. ? People who have a family history of atrial fibrillation. ? Men. ? People who use drugs. ? People who drink a lot of alcohol. ? People who have lung conditions, such as emphysema, pneumonia, or COPD. ? People who have obstructive sleep apnea. What are the signs or symptoms? Symptoms of this condition include: ? A feeling that your heart is racing or beating irregularly. ? Discomfort or pain in your chest. ? Shortness of breath. ? Sudden light-headedness or weakness. ? Tiring easily during exercise or activity. ? Fatigue. ? Syncope (fainting). ? Sweating. In some cases, there are no symptoms. How is this diagnosed? Your health care provider may detect atrial fibrillation when taking your pulse. If detected, this condition may be diagnosed with: ? An electrocardiogram (ECG) to check electrical signals of the heart. ? An ambulatory quality assurance monitor chassis to record your heart's activity for a few days. ? A transthoracic echocardiogram (TTE) to create pictures of your heart. ? A transesophageal echocardiogram (PATRICE) to create even closer pictures of your heart. ? A stress test to check your blood supply while you exercise. ? Imaging tests, such as a CT scan or chest X-ray. ? Blood tests. How is this treated? Treatment depends on underlying conditions and how you feel when you experience atrial fibrillation. This condition may be treated with: ? Medicines to prevent blood clots or to treat heart rate or heart rhythm problems. ? Electrical cardioversion to reset the heart's rhythm. ? A pacemaker to correct abnormal heart rhythm. ? Ablation to remove the heart tissue that sends abnormal signals. ? Left atrial appendage closure to seal the area where blood clots can form. In some cases, underlying conditions will be treated. Follow these instructions at home: Medicines ? Take over-the counter and prescription medicines only as told by your health care provider. ? Do not take any new medicines without talking to your health care provider. ? If you are taking blood thinners: ? Talk with your health care provider before you take any medicines that contain aspirin or NSAIDs, such as ibuprofen. These medicines increase your risk for dangerous bleeding. ? Take your medicine exactly as told, at the same time every day. ? Avoid activities that could cause injury or bruising, and follow instructions about how to prevent falls. ? Wear a medical alert bracelet or carry a card that lists what medicines you take. Lifestyle ? Do not use any products that contain nicotine or tobacco, such as cigarettes, e-cigarettes, and chewing tobacco. If you need help quitting, ask your health care provider. ? Eat heart-healthy foods. Talk with a dietitian to make an eating plan that is right for you. ? Exercise regularly as told by your health care provider. ? Do not drink alcohol. ? Lose weight if you are overweight. ? Do not use drugs, including cannabis. General instructions ? If you have obstructive sleep apnea, manage your condition as told by your health care provider. ? Do not use diet pills unless your health care provider approves. Diet pills can make heart problems worse. ? Keep all follow-up visits as told by your health care provider. This is important. Contact a health care provider if you: ? Notice a change in the rate, rhythm, or strength of your heartbeat. ? Are taking a blood thinner and you notice more bruising. ? Tire more easily when you exercise or do heavy work. ? Have a sudden change in weight. Get help right away if you have: ? Chest pain, abdominal pain, sweating, or weakness. ? Trouble breathing. (more content not included)... Normal [facility] CHEMISTRYOrdered By: SYSTEM SYSTEM on 08-06-2023 25-hydroxyvitamin D3 [Mass/Vol] 55.9 ng/mL Normal 30.0 - 100.0 ng/mL Remisol Chem Albumin [Mass/Vol] 3.7 g/dL Normal 3.3 - 5.0 gm/dL R emisol Chem Albumin/Globulin [Mass ratio] 1.6 {ratio} Normal 1.1 - 2.2 [facility] ALP [Catalytic activity/Vol] 51 [iU]/d Normal 21 - 98 Int._Unit/L Remisol Chem ALT No additional P-5'-P [Catalytic activity/Vol] 10 [iU]/d Normal 6 - 46 Int._Unit/L [facility] Anion gap [Moles/Vol] 12 mmol/L Normal 6 - 16 mEq/L [facility] AST [Catalytic activity/Vol] 20 [iU]/d Normal 5 - 43 Int._Unit/L [facility] Bilirubin [Mass/Vol] 0.6 mg/dL Normal 0.0 - 1.1 mg/dL [facility] Calcium [Mass/Vol] 9.0 mg/dL Normal 8.9 - 11.1 mg/dL [facility] Chloride [Moles/Vol] 107 mmol/L Normal 101 - 111 mmol/L [facility] Cholesterol [Mass/Vol] 125 mg/dL Normal 120 - 200 mg/dL [facility] Cholesterol in HDL [Mass/Vol] 54 mg/dL Invalid Interpretation Code [facility] Comment on above: Result Comment: '>= 60 LOW RISK' '<= 40 HIGH RISK' Cholesterol in LDL [Mass/Vol] 59 mg/dL Normal <=129mg/dL Rem[facility] Cholesterol in VLDL [Mass/Vol] 19 mg/dL Normal 7 - 40 mg/dL [facility] CO2 [Moles/Vol] 28 mmol/L Normal 21 - 31 mmol/L Remis ol Chem Creatinine [Mass/Vol] 0.6 mg/dL Normal 0.5 - 1.3 mg/dL Rem[facility] Chem eGFR 97 mL/min/1.73 m2 Normal >=59mL/min /1.73 m2 Rem[facility] Chem Globulin (S) [Mass/Vol] 2.3 g/dL Normal 1.4 - 4.0 gm/dL Rem[facility] Glucose [Mass/Vol] 84 mg/dL Normal 55 - 199 mg/dL Re misol Chem Iron [Mass/Vol] 93 ug/dL Normal 35 - 153 mcg/dL Oniel alpa Chem Potassium [Moles/Vol] 3.6 mmol/L Normal 3.5 - 5.3 mmol/L Remisol Chem Protein [Mass/Vol] 6.0 g/dL Normal 6.0 - 7.8 gm/dL R emisol Chem Sodium [Moles/Vol] 143 mmol/L Normal 135 - 145 mmol/L Rem[facility] Triglyceride [Mass/Vol] 97 mg/dL Normal <=149mg/dL Rem[facility] Chem TSH Qn 1.62 m[IU]/L Normal 0.34 - 5.60 mcIU/mL Rem[facility] Urea nitrogen [Mass/Vol] 11 mg/dL Normal 5 - 21 mg/dL [facility] Urea nitrogen/Creatinin e [Mass ratio] 18 mg/mg Normal 10 - 20 [facility] Chem CMPon 08-06-2023 Albumin [Mass/Vol] 3.7 g/dL Normal 3.3-5.[address] [facility] Comment on above: Performed By: #### 1 [id number], 0283773, [id number], 01724005, 3014120, 1621894 ####[facility] [address] [place] [address] Albumin/Globulin (S) [Mass conc ratio] 1.6 Normal 1.1-2.[address] [facility] Comment on above: Performed By: #### 1 5771967, 1307268, [id number], 52608965, 6111773, 4529690 ####[facility] [address] [place] [address] ALP [Catalytic activity/Vol] 51 Int._Unit/L Normal 21-[address] [facility] Comment on above: Performed By: #### 1 6055730, 1881347, [id number], 69910012, 0021866, 4300684 ####[facility] [address] [place] [address] ALT No additional P-5'-P [Catalytic activity/Vol] 10 Int._Unit/L Normal 6-[address] [facility] Comment on above: Performed By: #### 1 1639218, 0256846, [id number], 47920299, 2486871, 9912553 ####[address] [place] [address] Anion gap [Moles/Vol] 12 mmol/L Normal 6-[address] [facility] Comment on above: Performed By: #### 1 7623781, 4796655, 516154185, 95804842, 2814348, 0957403 ####[facility] [address] [place] [address] AST [Catalytic activity/Vol] 20 Int._Unit/L Normal 5-[address] [facility] Comment on above: Performed By: #### 1 7140620, 8042523, 356601369, 16327756, 3463384, 4409615 ####[address] [place] [address] Bilirubin [Mass/Vol] 0.6 mg/dL Normal 0.0-1.[address] [facility] Comment on above: Performed By: #### 1 2038376, 4016205, 164056326, 47824497, 0361595, 2813522 ####[address] [place] [address] Calcium [Mass/Vol] 9.0 mg/dL Normal 8.9-11.[address] [facility] Comment on above: Performed By: #### 1 5923003, 8830863, 937837018, 68757508, 6033440, 2277895 ####[facility] [address] [place] [address] Chloride [Moles/Vol] 107 mmol/L Normal 101-[address] [facility] Comment on above: Performed By: #### 1 1622380, 4008488, 851836778, 67456170, 1202937, 3838280 ####[facility] [address] [place] [address] CO2 [Moles/Vol] 28 mmol/L Normal 21-[address] [facility] Comment on above: Performed By: #### 1 7544397, 1635599, 151409407, 17070633, 2027099, 4325911 ####[address] [place] [address] Creatinine [Mass/Vol] 0.6 mg/dL Normal 0.5-1.[address] [facility] Comment on above: Performed By: #### 1 5598080, 2354817, 565576935, 29528589, 0983413, 7188342 ####[facility] [address] [place] [address] Globulin (S) [Mass/Vol] 2.3 g/dL Normal 1.4-4.[address] [facility] Comment on above: Performed By: #### 1 3885519, 5713350, 451027066, 14877867, 8472382, 3612328 ####[facility] [address] [place] [address] Glucose [Mass/Vol] 84 mg/dL Normal 55-[address] [facility] Comment on above: Performed By: #### 1 0486441, 7869314, 383292691, 03214633, 9104321, 0297724 ####[facility] [address] [place] [address] Potassium [Moles/Vol] 3.6 mmol/L Normal 3.5-5.[address] [facility] Comment on above: Performed By: #### 1 9670741, 3008638, 309009856, 37012471, 0237633, 7661863 ####[facility] [address] [place] [address] Protein [Mass/Vol] 6.0 g/dL Normal 6.0-7.[address] [facility] Comment on above: Performed By: #### 1 5390864, 5320478, 175633811, 30458649, 1653528, 8986326 ####[facility] [address] [place] [address] Sodium [Moles/Vol] 143 mmol/L Normal 135-[address] [facility] Comment on above: Performed By: #### 1 8929777, 5510805, 487131406, 16510502, 3856984, 2314533 ####[facility] [address] [place] [address] Urea nitrogen [Mass/Vol] 11 mg/dL Normal 5-[address] [facility] Comment on above: Performed By: #### 1 1517368, 5179669, 193431712, 04128289, 0302178, 8805246 ####[facility] [address] [place] [address] Urea nitrogen/Creatinin e [Mass ratio] 18 No Units Normal 10-[address] [facility] Comment on above: Performed By: #### 1 1044235, 3251067, 318849423, 53462311, 6880087, 3237652 ####[facility] [address] [place] [address] Ironon 08-06-2023 Iron [Mass/Vol] 93 microgram/dL Normal 35-153 [facility] Comment on above: Performed By: #### 1 7131960, 2128019, 734072144, 94513542, 1056206, 8142058 ####[facility] [address] [place] [address] Lipid Panelon 08-06-2023 Cholesterol [Mass/Vol] 125 mg/dL Normal 120-[address] [facility] Comment on above: Performed By: #### 1 9748424, 3826373, 778165428, 08801978, 7500708, 3573839 ####[facility] [address] [address] Cholesterol in HDL [Mass/Vol] 54 mg/dL Invalid Interpretation Code [facility] Comment on above: Result Comment: '>= 60 LOW RISK' '<= 40 HIGH RISK' Performed By: #### 1 2860572, 6237324, 737750311, 58997601, 8827250, 9664427 ####[facility] [address] [place] [address] Cholesterol in LDL [Mass/Vol] 59 mg/dL Normal <=[address] [facility] Comment on above: Performed By: #### 1 8563898, 4361274, 297597675, 92037446, 1436754, 4839205 ####[facility] [address] [place] [address] Cholesterol in VLDL [Mass/Vol] 19 mg/dL Normal 7-[address] [facility] Comment on above: Performed By: #### 1 4947089, 9438403, 665649705, 67236484, 3229069, 9518269 ####[facility] [address] [place] [place] [address] Triglyceride [Mass/Vol] 97 mg/dL Normal <=[address] [facility] Comment on above: Performed By: #### 1 9291349, 7411126, 909148368, 96161099, 6162421, 1987501 ####[facility] [address] [place] [address] TSH With T4fr Reflexon 08-05 TSH Qn 1.62 m[IU]/L Normal 0.34-5.[address] [facility] Comment on above: Performed By: #### 1 9609990, 1221123, 130894805, 86971173, 5088159, 0209324 ####[facility] [address] [place] [address] Vitamin D 25 Hydroxyon 08-05 25-hydroxyvitamin D3 [Mass/Vol] 55.9 ng/mL Normal 30.0-100.[address] [facility] Comment on above: Performed By: #### 1 2428653, 6900335, 023913358, 69436213, 9123866, 6515728 ####[facility] [address] [place] [address] eGFRon 08-06-2023 eGFR 97 mL/min/1.73 m2 Normal >=[address] [facility] Comment on above: Order Comment: Order added by Discern Expert. Performed By: #### 1 5926722, 2937333, 482428189, 46571289, 5192844, 7841168 ####[facility] [address] [place] [address] Population Healthon 07-22-19 [facility] Case Information Case Priority: None Programs: -- Referral Source: Cytometry Technologist Referral Reason: Disease management Case Type: Chronic Care Management Risk Score: -- Case Status: Active (June 25, 2023) Date Assigned: June 19, 2023 Assigned By: Clay Tavarez Date Enrolled: June 25, 2023 Assigned Primary Personnel: Clay Tavarez Assigned Secondary Personnel: -- Case Physician: Román Feliz MD Ongoing Allergic rhinitis, seasonal Anxiety BMI 27.0-27.9,adult Change in bowel habits Chronic GERD Dark urine Diverticulosis Dizziness Dysphagia Early satiety Endometritis Family history of colon cancer in father Fibromyalgia Hiatal hernia History of depression History of diverticulitis History of nephrolithiasis Impaired ambulation Knee pain, right Lupus Migraines OA (osteoarthritis) Osteopenia Persistent atrial fibrillation Pre-op exam Primary fibrositis Pure hypercholesterolemia Severe episode of recurrent major depressive disorder, without psychotic features Sinusitis Taste impairment Urinary incontinence Vitamin D deficiency Historical No qualifying data Procedure/Surgical History Arthroplasty of the hip (07/07/2016), Colonoscopy (11/23/2014), EGD - Esophagogastroduodenoscopy (11/23/2014), Arthroplasty of the hip, Cholecystectomy, Colonoscopy, Tubal ligation, Vaginal total hysterectomy. Home Medications atorvastatin 10 mg Tab, See Instructions, 1 refills busPIRone 5 mg Tab, See Instructions celecoxib 400 mg oral capsule, 400 mg= 1 cap(s), Oral, Daily cyclobenzaprine, 5 mg, Oral, Bedtime, PRN, Not taking D3, 50 mcg, Oral, Daily Eliquis 5 mg oral tablet, 5 mg= 1 tab(s), Oral, BID, 1 refills Handicap Placard, 6 months, See Instructions metoprolol tartrate 100 mg Tab, 100 mg= 1 tab(s), Oral, BID, 3 refills Multi Vitamin+, 1 TABLET, Oral, Daily olanzapine 5 mg Tab, 5 mg= 1 tab(s), Oral, Daily PreserVision AREDS, 1 tablet, Oral, Daily Allergies Adhesive Bandage (Unknown) codeine (Unknown) iodine (Unknown) penicillin (Unknown) Social History Alcohol - Denies Alcohol Use, 01/28/2022 Household alcohol concerns: No., 10/16/2022 Substance Abuse - Denies Substance Abuse, 01/28/2022 Tobacco - Denies Tobacco Use, 09/03/2022 Former smoker, quit more than 30 days ago Tobacco Use:. Never Smokeless Tobacco Use:. Cigarettes, 3 per day. Started age 16.0 Years. Stopped age 36 Years. Household tobacco concerns: No., 07/13/2023 Family History Heart disease: Mother. Primary malignant neoplasm of colon: Father. Primary malignant neoplasm of lung: Brother. Screenings and Assessments 06/25/23 14:04:00 Result Name Value Comment [facility] Program Enrollment Verbally agreed to receive [facility] services CCM Written Consent Written consent in progress CCM Verbal Consent By Self 06/25/23 13:00:00 Result Name Value Comment HIPPA Verified Type of Contact Telephone Information Given by Self CM Preferred Spoken Language Ghanaian CM Preferred Written Language Ghanaian Preferred Communication Mode Verbal Ability to Read/Write Able to read, Able to write Preferred Salutation Certified Paralegal Called No Preferred Method of Contact Cell Cell Phone [phone] Best Time to Visit or Contact 1-5 pm Best Day to Visit or Contact No preference Appointment Reminders Other secured messaging Preferred Way to Send PHI Other secured messaging Preferred Mailing Address [address] [place] [address], [id number] Able to Read Ghanaian Able to read Ghanaian Learning Style Pref Patient None Barriers to Learning Hearing deficit, Memory problems Response to Current Year Correct Response to Current Month Correct Response to Current Time Correct Count Backward 20 to 1 Correct State Months in Reverse Order 2 Or more errors Repeat Memory Phrase Correct Lives In Multilevel home Number in Household 2 Sleeping Arrangement Own bed, in room alone Immediate Needs or Current Concerns Transportation Support System Family member(s), Friend(s) Special Services and Resources Counseling, Other services or resources Primary Sewing Room Supervisor of Home Medication Self Medication Adherence Method Other medication adherence support Current DME at Home No Home Equipment, Anticipated Cane, Shower chair, Walker - front wheeled Currently Receiving Skilled Services No Skilled Service Needs Anticipated No Home Barriers None Employment Status Disabled Financial Issues None Sources of Income Soci (more content not included)... [facility] C Urineon 07-16-2023 Bacteria identified Cx Nom (U) Microbiology PROCEDURE: Urine Culture [R1] SOURCE: U CleanCatch BODY SITE: COLLECTED DATE/TIME: 07/14/2023 10:43 EDT RECEIVED DATE/TIME: 07/14/2023 19:01 EDT START DATE/TIME: 07/14/2023 19:01 EDT FREE TEXT SOURCE: Tray GREGG, Román Feliz MD, Román Wilcox FINAL REPORTS Final Report [] Verified Date/Time: 07/16/2023 07:21 EDT 100 cfu/ml Mixed skin contaminants Performing Locations R1: This test was performed at: [facility], [address] [place] [address], [facility]- , , [facility] Comment on above: Performed By: #### 2 [id number] #### [facility] [address] [place] [address] Ambulatory Visit Summaryon 0 07-13-2023 Ambulatory Visit Summary MARTHA DALEY :1955 Visit Date:07/13/2023 Ambulatory Visit Instructions Your Diagnosis Anxiety BMI 25.0-25.9,adult Overweight child Former smoker Dark urine Dizziness These Are Your Goals Symptoms of Depression will be Reduced Interventions: Keep follow up appoinments as scheduled with PCP and - Not done Learn About Triggers, Prevention and Management Learn Ways to Self-Manage Depression - Not done Learn to Recognize Signs of Depression - Not done Review Education Material - Not done Take Medications as Prescribed - Not done Prevent complications from Diverticulitis/IBS Interventions: Eat well balanced diet high in fiber and limit red-meats such as beef, pork, or gomez - Not done Increase physical acitivity; 3 days per week, try to get 30 minutes each time - Not done Keep follow up visits as scheduled by your provider Maintain a healthy BMI - Not done Review Educational Material - Not done Maintain Therapeutic HR and Prevent Complications from Atrial Fibrillation Interventions: Keep scheduled f/u as scheduled by your provider and complete all testing as suggested by provider - Not done Learn to recognize symptoms of afib and when to seek medical attention/ report to provider - Not done Review Educational Material - Not done Take medications as prescribed - Not done Complications of Chronic Pain are Reduced Interventions: Engage in one new therapy every 3 months such as: yoga, meditation, massage, or acupuncture - Not done Engage in regular exercise - Not done Keep follow up appointments as scheduled with provider - Not done Review Educational Material - Not done Take medications as prescribed - Not done Use of alternatives to medicaine such as: heating pad or ice as needed - Not done Your Care Team Attending Physician - Román Feliz MD Primary Care Physician - Román Feliz MD This Is Your Medications List [facility] [place] Prescription (Handicap Placard, 6 months) apixaban (Eliquis 5 mg oral tablet) atorvastatin (atorvastatin 10 mg Tab) busPIRone (busPIRone 5 mg Tab) celecoxib (celecoxib 400 mg oral capsule) cholecalciferol (D3) cyclobenzaprine metoprolol (metoprolol tartrate 100 mg Tab) multivitamin (Multi Vitamin+) multivitamin with minerals (PreserVision AREDS) olanzapine (olanzapine 5 mg Tab) Procedures Performed Arthroplasty of the hip (07/07/2016), Colonoscopy (11/23/2014), EGD - Esophagogastroduodenoscopy (11/23/2014), Arthroplasty of the hip, Cholecystectomy, Colonoscopy, Tubal ligation, Vaginal total hysterectomy. Discharge Vitals Temperature (Oral) 36.6 ?C Heart Rate (Peripheral) 68 Respiratory Rate 16 Blood Pressure 118/76 Height 172 cm Height 68 in Weight 75.5 kg Weight 166.1 lb BMI 25.52 What to do next Scheduled Follow-Up Appointments Thursday 2:00 PM EDT With: Román Feliz MD Where: [facility] Rough And Ready Normal [id number]- \.br\ Medications\.br\ What How Much When Why Instructions\.br \ Unchanged apixaban (Eliquis 5 mg oral tablet) 1 Tablets By Mouth 2 times a day\.br\ Unchanged atorvastatin (atorvastatin 10 mg Tab) See instructions TAKE ONE TABLET BY MOUTH DAILY \.br\ Unchanged busPIRone (busPIRone 5 mg Tab) See instructions TAKE ONE TABLET BY MOUTH THREE TIMES A DAY \.br\ Unchanged celecoxib (celecoxib 400 mg oral capsule) 1 Capsules By Mouth Every day\.br\ Unchanged cholecalciferol (D3) 50 Microgram By Mouth Every day\.br\ Unchanged cyclobenzaprine 5 Milligram By Mouth At bedtime as needed for Spasm\.br\ Unchanged metoprolol (metoprolol tartrate 100 mg Tab) 1 Tablets By Mouth 2 times a day\.br\ Unchanged Misc Prescription (Handicap Placard, 6 months) See instructions Anxiety Knee pain, right BMI 28.0-28.9,adult Class 1 obesity due to excess calories in adult Handicap Placard, 6 month \.br\ Unchanged multivitamin (Multi Vitamin+) 1 TABLET By Mouth Every day\.br\ Unchanged multivitamin with minerals (PreserVision AREDS) 1 tablet By Mouth Every day\.br\ Unchanged olanzapine (olanzapine 5 mg Tab) 1 Tablets By Mouth Every day\.br\ Allergies\.br\ Adhesive Bandage (Unknown)\.br\ codeine (Unknown)\.br\ iodine (Unknown)\.br\ penicillin (Unknown)\.br\ Problems\.br\ Ongoing - Any problem that you are currently receiving treatment for.\.br\ Allergic rhinitis, seasonal\.br\ Anxiety\.br\ BMI 27.0-27.9,adult\ .br\ Change in bowel habits\.br\ Chronic GERD\.br\ Dark urine\.br\ Diverticulosis\. br\ Dizziness\.br\ Dysphagia\.br\ Early satiety\.br\ Endometritis\.br \ Family history of colon cancer in father\.br\ Fibromyalgia\.br \ Hiatal hernia\.br\ History of depression\.br\ History of diverticulitis\. br\ History of nephrolithiasis\ .br\ Impaired ambulation\.br\ Knee pain, right\.br\ Lupus\.br\ Migraines\.br\ OA (osteoarthritis) \.br\ Osteopenia\.br\ Persistent atrial fibrillation\.br \ Pre-op exam\.br\ Primary fibrositis\.br\ Pure hypercholesterol emia\.br\ Severe episode of recurrent major depressive disorder, without psychotic features\.br\ Sinusitis\.br\ Taste impairment\.br\ Urinary incontinence\.br \ Vitamin D deficiency\.br\ Patient Survey\.br\ You may receive a survey via text or e-mail asking about your office visit. Please share your experience with us by completing your survey. We appreciate your feedback and thank you for choosing us for your care.\.br\ \.br\ [facility] Family Medicine Office/Clini c Noteon 07-13-2023 Family Medicine Office/Clinic Note HPI Staff Martha is a 67 year old female presenting for one month follow up anxiety YESI referred to counselor Follow up for Mental Status: Medication adherence- Yes, takes medication as prescribed Medication refill needed: no Suicidal thoughts-Not at this time Most recent JANET: 11 Most recent PHQ9: 13 flu: UTD 01/07/23 questions/concerns: needs her celecoxib refilled History of Present Illness - Here for follow up. PHq-19 at last visit. Improved to a point Pt is not sleeping well. Review of Systems PHQ Score Initial Depression Screen Score: 3 SCORE Physical Exam Vitals & Measurements T: 36.6 ?C(Oral) HR: 68(Peripheral) RR: 16 BP: 118/76 SpO2: 99% HT: 68 in HT: 172 cm WT: 75.5 kg WT: 166.1 lb BMI: 25.52 General: alert, no acute distress ENMT: oral mucosa moist, Cardiovascular: regular rate and rhythm, normal peripheral perfusion Respiratory: Lungs CTA, respirations non labored Extremities: no deformity, no trauma Neurological: oriented x 4, LOC appropriate for age, CN II-XII intact, motor strength equal & normal bilaterally, speech normal Abdomen: Soft, Nontender, Non-distended, + BS Assessment/Plan Total time spent preparing for the encounter, evaluating and assessing the patient, documenting the visit, and ordering appropriate follow-up work was 50 minutes. 1. Anxiety (F41.9: Anxiety disorder, unspecified) - NO improvement as she is afraid of where she lives. - Have worked on trying to help her find other living arrangements, but patient is not helping herself. - Asked if she could stay with her daughter. She states yes, but then wont go or makes an excuse for it. - Looking to see if she qualifies for the Assisted Living - Follow up in 1 month. Ordered: Body Mass Index (BMI) documented 3008F Current tobacco non-user 1036F Depression Screening Positive 3354F Influenza immunization administered or previously received 4274F Most recent diastolic blood pressure <80 mm Hg 3078F Patient screen for fall risk: no falls in last year or 1 fall with no injury in last year 1101F Systolic BP <130 mm Hg (Most Recent) 3074F 2. BMI 25.0-25.9,adult (Z68.25: Body mass index [BMI] 25.0-25.9, adult) BMI education given Ordered: Body Mass Index (BMI) documented 3008F Current tobacco non-user 1036F Depression Screening Positive 3354F Influenza immunization administered or previously received 4274F Most recent diastolic blood pressure <80 mm Hg 3078F Patient screen for fall risk: no falls in last year or 1 fall with no injury in last year 1101F Systolic BP <130 mm Hg (Most Recent) 3074F 3. Overweight child (E66.3: Overweight) - Diet and exercise advised Ordered: Body Mass Index (BMI) documented 3008F Current tobacco non-user 1036F Depression Screening Positive 3354F Influenza immunization administered or previously received 4274F Most recent diastolic blood pressure <80 mm Hg 3078F Patient screen for fall risk: no falls in last year or 1 fall with no injury in last year 1101F Systolic BP <130 mm Hg (Most Recent) 3074F 4. Former smoker (Z87.891: Personal history of nicotine dependence) - Please continue to not smoke Ordered: Body Mass Index (BMI) documented 3008F Current tobacco non-user 1036F Depression Screening Positive 3354F Influenza immunization administered or previously received 4274F Most recent diastolic blood pressure <80 mm Hg 3078F Patient screen for fall risk: no falls in last year or 1 fall with no injury in last year 1101F Systolic BP <130 mm Hg (Most Recent) 3074F 5. Dark urine (R82.998: Other abnormal findings in urine) - U/A ordered. - Pt unable to go - Advised hydration - Pt to bring urine tomorrow 6. Dizziness (R42: Dizziness and giddiness) - Pt cancelled her apt due to this. - Asked why she did not go to the ER. - Pt refused - Advised the patient hydrate and go to the ER Follow-up No qualifying data available Problem List/Past Medical History Ongoing Allergic rhinitis, seasonal Anxiety BMI 27.0-27.9,adult Change in bowel habits Chronic GERD Dark urine Diverticulosis Dizziness Dysphagia Early satiety Endometritis Family history of colon cancer in father Fibromyalgia Hiatal hernia History of depression History of diverticulitis History of nephrolithiasis Impaired ambulation Knee pain, right Lupus Migraines OA (osteoarthritis) Osteopenia Persistent atrial fibrillation Pre-op exam Primary fibrositis Pure hypercholesterolemia Severe episode of recurrent major depressive disorder, without psychotic features Sinusitis Taste impairment Urinary incontinence Vitamin D deficiency Historical No qualifying data Procedure/Surgical History Arthroplasty of the hip (07/07/2016), Colonoscopy (11/23/2014), EGD - Esophagogastroduodenoscopy (11/23/2014), Arthroplasty of the hip, Cholecystectomy, Colonoscopy, Tubal ligation, Vaginal total hysterectomy. Medications atorv (more content not included)... Normal [facility] Comment on above: Result Comment: Elec tronically Signed By: Tray GREGG, Román Wilcox\.br\Date and Time Signed: 07/13/23 15:43 EDT [facility] Gastro[facility]ology Diverticulitis Diverticulitis is when small pouches in your colon (large intestine) get infected or swollen. This causes pain in the belly (abdomen) and watery poop (diarrhea). These pouches are called diverticula. The pouches form in people who have a condition called diverticulosis. What are the causes? This condition may be caused by poop (stool) that gets trapped in the pouches in your colon. The poop lets germs (bacteria) grow in the pouches. This causes the infection. What increases the risk? You are more likely to get this condition if you have small pouches in your colon. The risk is higher if: ? You are overweight or very overweight (obese). ? You do not exercise enough. ? You drink alcohol. ? You smoke or use products with tobacco in them. ? You eat a diet that has a lot of red meat such as beef, pork, or gomez. ? You eat a diet that does not have enough fiber in it. ? You are older than 40 years of age. What are the signs or symptoms? ? Pain in the belly. Pain is often on the left side, but it may be in other areas. ? Fever and feeling cold. ? Feeling like you may vomit. ? Vomiting. ? Having cramps. ? Feeling full. ? Changes to how often you poop. ? Blood in your poop. How is this treated? Most cases are treated at home by: ? Taking qkzj-tgn-fuobaeb pain medicines. ? Following a clear liquid diet. ? Taking antibiotic medicines. ? Resting. Very bad cases may need to be treated at a hospital. This may include: ? Not eating or drinking. ? Taking prescription pain medicine. ? Getting antibiotic medicines through an IV tube. ? Getting fluid and food through an IV tube. ? Having surgery. When you are feeling better, your doctor may tell you to have a test to check your colon (colonoscopy). Follow these instructions at home: Medicines ? Take fnmp-jcw-wfslaxs and prescription medicines only as told by your doctor. These include: ? Antibiotics. ? Pain medicines. ? Fiber pills. ? Probiotics. ? Stool softeners. ? If you were prescribed an antibiotic medicine, take it as told by your doctor. Do not stop taking the antibiotic even if you start to feel better. ? Ask your doctor if the medicine prescribed to you requires you to avoid driving or using machinery. Eating and drinking ? Follow a diet as told by your doctor. ? When you feel better, your doctor may tell you to change your diet. You may need to eat a lot of fiber. Fiber makes it easier to poop (have a bowel movement). Foods with fiber include: ? Berries. ? Beans. ? Lentils. ? Green vegetables. ? Avoid eating red meat. General instructions ? Do not use any products that contain nicotine or tobacco, such as cigarettes, e-cigarettes, and chewing tobacco. If you need help quitting, ask your doctor. ? Exercise 3 or more times a week. Try to get 30 minutes each time. Exercise enough to sweat and make your heart beat faster. ? Keep all follow-up visits as told by your doctor. This is important. Contact a doctor if: ? Your pain does not get better. ? You are not pooping like normal. Get help right away if: ? Your pain gets worse. ? Your symptoms do not get better. ? Your symptoms get worse very fast. ? You have a fever. ? You vomit more than one time. ? You have poop that is: ? Bloody. ? Black. ? Tarry. Summary ? This condition happens when small pouches in your colon get infected or swollen. ? Take medicines only as told by your doctor. ? Follow a diet as told by your doctor. ? Keep all follow-up visits as told by your doctor. This is important. This information is not intended to replace advice given to you by your health care provider. Make sure you discuss any questions you have with your health care provider. Document Revised: 01/16/2020 Document Reviewed: 01/16/2020 [employer] Patient Education ? 2022 [employer]. Mental and Behavioral Health Chronic Pain, Adult Chronic pain is a type of pain that lasts or keeps coming back for at least 3?6 months. You may have headaches, pain in the abdomen, or pain in other areas of the body. Chronic pain may be related to an illness, such as fibromyalgia or complex regional pain syndrome. Chronic pain may also be related to an injury or a health condition. Sometimes, the cause of chronic pain is not known. Chronic pain can make it hard for you to do daily activities. If not treated, chronic pain can lead to anxiety and depression. Treatment depends on the cause and severity of your pain. You may need to work with a pain specialist to come up with a treatment plan. The plan may include medicine, counseling, and physical therapy. Many people benefit from a combination of two or more types of treatment to control their pain. Follow these instructions at home: Medicines ? Take ycbn-gme-omjztxr and prescription medicines only as told by your health care provider. (more content not included)... Normal [facility] 06-25-19 Population Health Case Information Case Priority: None Programs: -- Referral Source: Cytometry Technologist Referral Reason: Disease management Case Type: Chronic Care Management Risk Score: -- Case Status: Active (June 25, 2023) Date Assigned: June 19, 2023 Assigned By: Clay Tavarez Date Enrolled: June 25, 2023 Assigned Primary Personnel: Clay Tavarez Assigned Secondary Personnel: -- Case Physician: Román Feliz MD Problems Ongoing Allergic rhinitis, seasonal Anxiety BMI 27.0-27.9,adult Change in bowel habits Chronic GERD Diverticulosis Dysphagia Early satiety Endometritis Family history of colon cancer in father Fibromyalgia Hiatal hernia History of depression History of diverticulitis History of nephrolithiasis Impaired ambulation Knee pain, right Lupus Migraines OA (osteoarthritis) Osteopenia Persistent atrial fibrillation Pre-op exam Primary fibrositis Pure hypercholesterolemia Severe episode of recurrent major depressive disorder, without psychotic features Sinusitis Taste impairment Urinary incontinence Vitamin D deficiency Historical No qualifying data Procedure/Surgical History Arthroplasty of the hip (07/07/2016), Colonoscopy (11/23/2014), EGD - Esophagogastroduodenoscopy (11/23/2014), Arthroplasty of the hip, Cholecystectomy, Colonoscopy, Tubal ligation, Vaginal total hysterectomy. Home Medications atorvastatin 10 mg Tab, See Instructions, 1 refills busPIRone 5 mg Tab, See Instructions, Still taking, not as prescribed: PATIENT STATES INCREASED DOSE INEFFECTIVE, IS TAKING ONE DAILY celecoxib 400 mg oral capsule, 400 mg= 1 cap(s), Oral, Daily D3, 50 mcg, Oral, Daily Eliquis 5 mg oral tablet, See Instructions ferrous sulfate, 65 mg, Oral, Daily Handicap Placard, 6 months, See Instructions metoprolol tartrate 100 mg Tab, 100 mg= 1 tab(s), Oral, BID, 3 refills Multi Vitamin+, 1 TABLET, Oral, Daily olanzapine 5 mg Tab, 5 mg= 1 tab(s), Oral, Daily PreserVision AREDS, 1 tablet, Oral, Daily Allergies Adhesive Bandage (Unknown) codeine (Unknown) iodine (Unknown) penicillin (Unknown) Social History Alcohol - Denies Alcohol Use, 01/28/2022 Household alcohol concerns: No., 10/16/2022 Substance Abuse - Denies Substance Abuse, 01/28/2022 Tobacco - Denies Tobacco Use, 09/03/2022 Former smoker, quit more than 30 days ago Tobacco Use:. Never Smokeless Tobacco Use:. Cigarettes, 3 per day. Started age 16.0 Years. Stopped age 36 Years. Household tobacco concerns: No., 06/03/2023 Family History Heart disease: Mother. Primary malignant neoplasm of colon: Father. Primary malignant neoplasm of lung: Brother. Screenings and Assessments 06/25/23 14:04:00 Result Name Value Comment CCM Program Enrollment Verbally agreed to receive [facility] services CCM Written Consent Written consent in progress CCM Verbal Consent By Self 06/25/23 13:00:00 Result Name Value Comment HIPPA Verified Type of Contact Telephone Information Given by Self CM Preferred Spoken Language Ghanaian CM Preferred Written Language Ghanaian Preferred Communication Mode Verbal Ability to Read/Write Able to read, Able to write Preferred Salutation Certified Paralegal Called No Preferred Method of Contact Cell Cell Phone [phone] Best Time to Visit or Contact 1-5 pm Best Day to Visit or Contact No preference Appointment Reminders Other secured messaging Preferred Way to Send PHI Other secured messaging Preferred Mailing Address [address] [place] [address], [facility] Able to Read Ghanaian Able to read Ghanaian Learning Style Pref Patient None Barriers to Learning Hearing deficit, Memory problems Response to Current Year Correct Response to Current Month Correct Response to Current Time Correct Count Backward 20 to 1 Correct State Months in Reverse Order 2 Or more errors Repeat Memory Phrase Correct Lives In Multilevel home Number in Household 2 Sleeping Arrangement Own bed, in room alone Immediate Needs or Current Concerns Transportation Support System Family member(s), Friend(s) Special Services and Resources Counseling, Other services or resources Primary Sewing Room Supervisor of Home Medication Self Medication Adherence Method Other medication adherence support Current DME at Home No Home Equipment, Anticipated Cane, Shower chair, Walker - front wheeled Currently Receiving Skilled Services No Skilled Service Needs Anticipated No Home Barriers None Employment Status Disabled Financial Issues None (more content not included)... Normal [facility] Population Health Problems Ongoing Allergic rhinitis, seasonal Anxiety BMI 27.0-27.9,adult Change in bowel habits Chronic GERD Diverticulosis Dysphagia Early satiety Endometritis Family history of colon cancer in father Fibromyalgia Hiatal hernia History of depression History of diverticulitis History of nephrolithiasis Impaired ambulation Knee pain, right Lupus Migraines OA (osteoarthritis) Osteopenia Persistent atrial fibrillation Pre-op exam Primary fibrositis Pure hypercholesterolemia Severe episode of recurrent major depressive disorder, without psychotic features Sinusitis Taste impairment Urinary incontinence Vitamin D deficiency Historical No qualifying data Procedure/Surgical History Arthroplasty of the hip (07/07/2016), Colonoscopy (11/23/2014), EGD - Esophagogastroduodenoscopy (11/23/2014), Arthroplasty of the hip, Cholecystectomy, Colonoscopy, Tubal ligation, Vaginal total hysterectomy. Medication List atorvastatin 10 mg Tab, See Instructions, 1 refills busPIRone 5 mg Tab, See Instructions, Still taking, not as prescribed: PATIENT STATES INCREASED DOSE INEFFECTIVE, IS TAKING ONE DAILY celecoxib 400 mg oral capsule, 400 mg= 1 cap(s), Oral, Daily D3, 50 mcg, Oral, Daily Eliquis 5 mg oral tablet, See Instructions ferrous sulfate, 65 mg, Oral, Daily Handicap Placard, 6 months, See Instructions metoprolol tartrate 100 mg Tab, 100 mg= 1 tab(s), Oral, BID, 3 refills Multi Vitamin+, 1 TABLET, Oral, Daily olanzapine 5 mg Tab, 5 mg= 1 tab(s), Oral, Daily PreserVision AREDS, 1 tablet, Oral, Daily Allergies Adhesive Bandage (Unknown) codeine (Unknown) iodine (Unknown) penicillin (Unknown) Goals and Interventions Care Plan Goal: Symptoms of Depression will be Reduced Start Date: 2023 Target: - - Status: - - Barriers: - - Comments: - - 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 Triggers, Prevention and Management - - - - - - Learn to Recognize Signs of Depression - - Not done - - Learn Ways to Self-Manage Depression - - Not done - - Review Education Material - - Not done - - Take Medications as Prescribed - - Not done - - Keep follow up appoinments as scheduled with PCP and BH - - Not done - - Goal: Prevent complications from Diverticulitis/IBS Start Date: 2023 Target: - - Status: - - Barriers: - - Comments: - - 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 - - Not done - - Increase physical acitivity; 3 days per week, try to get 30 minutes each time - - Not done - - Maintain a healthy BMI - - Not done - - Eat well balanced diet high in fiber and limit red-meats such as beef, pork, or gomez - - Not done - - Keep follow up visits as scheduled by your provider - - - - - - Goal: Maintain Therapeutic HR and Prevent Complications from Atrial Fibrillation Start Date: 2023 Target: - - Status: - - Barriers: - - Comments: - - 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 - - Not done - - Keep scheduled f/u as scheduled by your provider and complete all testing as suggested by provider - - Not done - - Learn to recognize symptoms of afib and when to seek medical attention/ report to provider - - Not done - - Take medications as prescribed - - Not done - - Goal: Complications of Chronic Pain are Reduced Start Date: 2023 Target: - - Status: - - Barriers: - - Comments: - - 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 - - Not done - - Keep follow up appointments as scheduled with provider - - Not done - - Take medications as prescribed - - Not done - - Engage in regular exercise - - Not done - - Engage in one new therapy every 3 months such as: yoga, meditation, massage, or acupuncture - - Not done - - Use of alternatives to medicaine such as: heating pad or ice as needed - - Not done - - [facility] Consultation Noteon 06-17-19 Consultation Note [id number] [facility] Consultation Noteon 06-11-19 Consultation Note [id number] [facility] Interdisciplinary Note - Soc ial Workeron 06-05-2023 Interdisciplinary Note - Gift Basket Packer Consult received due to patient's recurrent major depressive disorder. Per chart review, patient has been referred to [facility] for follow up of concerns related to her dx. SW will remain available. [facility] Ambulatory Visit Summaryon 0 06-03-2023 Ambulatory Visit Summary MARTHA DALEY :1955 Visit Date:06/03/2023 Ambulatory Visit Instructions Your Diagnosis Anxiety Lupus Persistent atrial fibrillation Severe episode of recurrent major depressive disorder, without psychotic features BMI 25.0-25.9,adult Over weight Former smoker Your Care Team Attending Physician - Román Feliz MD Primary Care Physician - Román Feliz MD This Is Your Medications List [facility] Prescription (Handicap Placard, 6 months) apixaban (Eliquis 5 mg oral tablet) atorvastatin (atorvastatin 10 mg Tab) busPIRone (busPIRone 5 mg Tab) celecoxib (Celebrex 400 mg oral capsule) celecoxib (celecoxib 400 mg oral capsule) fluticasone nasal (Flonase 0.05 mg/inh [place]) metoprolol (metoprolol tartrate 100 mg Tab) olanzapine (olanzapine 5 mg Tab) Procedures Performed Arthroplasty of the hip (07/07/2016), Colonoscopy (11/23/2014), EGD - Esophagogastroduodenoscopy (11/23/2014), Arthroplasty of the hip, Cholecystectomy, Colonoscopy, Tubal ligation, Vaginal total hysterectomy. Discharge Vitals Temperature (Temporal Artery) 36.7 ?C Heart Rate (Peripheral) 78 Respiratory Rate 16 Blood Pressure 118/72 Height 172 cm Height 68 in Weight 76.5 kg Weight 168.3 lb BMI 25.86 What to do next Scheduled Follow-Up Appointments Thursday 1:00 PM EDT With: Tray GREGG, Román Wilcox Where: [address] [place] [address]- \.br\ Medications\.br\ What How Much When Why Instructions\.br \ Unchanged apixaban (Eliquis 5 mg oral tablet) See instructions TAKE ONE TABLET BY MOUTH TWICE A DAY \.br\ Unchanged atorvastatin (atorvastatin 10 mg Tab) See instructions TAKE ONE TABLET BY MOUTH DAILY \.br\ Unchanged busPIRone (busPIRone 5 mg Tab) See instructions TAKE ONE TABLET BY MOUTH THREE TIMES A DAY \.br\ Unchanged celecoxib (Celebrex 400 mg oral capsule) 1 Capsules By Mouth Every day\.br\ Unchanged celecoxib (celecoxib 400 mg oral capsule) 1 Capsules By Mouth Every day\.br\ Unchanged fluticasone nasal (Flonase 0.05 mg/ inh [place]) 1 Sprays Nasal Inhalation 2 times a day Taste impairment BMI 28.0-28.9,adult Overweight each nostril \.br\ Unchanged metoprolol (metoprolol tartrate 100 mg Tab) 1 Tablets By Mouth 2 times a day\.br\ Unchanged Misc Prescription (Handicap Placard, 6 months) See instructions Anxiety Knee pain, right BMI 28.0-28.9,adult Class 1 obesity due to excess calories in adult Handicap Placard, 6 month \.br\ Unchanged olanzapine (olanzapine 5 mg Tab) 1 Tablets By Mouth Every day\.br\ Allergies\.br\ Adhesive Bandage (Unknown)\.br\ codeine (Unknown)\.br\ iodine (Unknown)\.br\ penicillin (Unknown)\.br\ Problems\.br\ Ongoing - Any problem that you are currently receiving treatment for.\.br\ Allergic rhinitis, seasonal\.br\ Anxiety\.br\ BMI 27.0-27.9,adult\ .br\ Change in bowel habits\.br\ Chronic GERD\.br\ Diverticulosis\. br\ Dysphagia\.br\ Early satiety\.br\ Endometritis\.br \ Family history of colon cancer in father\.br\ Fibromyalgia\.br \ Hiatal hernia\.br\ History of depression\.br\ History of diverticulitis\. br\ History of nephrolithiasis\ .br\ Impaired ambulation\.br\ Knee pain, right\.br\ Lupus\.br\ Migraines\.br\ OA (osteoarthritis) \.br\ Osteopenia\.br\ Persistent atrial fibrillation\.br \ Pre-op exam\.br\ Primary fibrositis\.br\ Pure hypercholesterol emia\.br\ Severe episode of recurrent major depressive disorder, without psychotic features\.br\ Sinusitis\.br\ Taste impairment\.br\ Urinary incontinence\.br \ Vitamin D deficiency\.br\ Patient Survey\.br\ You may receive a survey via text or e-mail asking about your office visit. Please share your experience with us by completing your survey. We appreciate your feedback and thank you for choosing us for your care.\.br\ \.br\ [facility] Family Medicine Office/Clini c Noteon 06-03-2023 Family Medicine Office/Clinic Note HPI Staff Martha is a 67 year old female presenting for 3 month follow up anxiety Follow up for Mental Status: Medication adherence- Yes, takes medication as prescribed Medication refill needed: no Suicidal thoughts-Not at this time Most recent JANET: 19 Most recent PHQ9: 19 flu: UTD 01/07/23 questions/concerns: she ? should she still take iron her hair is falling out History of Present Illness - Pt here for follow up on mood. Pt is really struggling. She feels things are not getting better. She is struggling with mood and the position she is in with her home. She feels like things are not improving. Physical Exam Vitals & Measurements T: 36.7 ?C(Temporal Artery) HR: 78(Peripheral) RR: 16 BP: 118/72 SpO2: 98% HT: 68 in HT: 172 cm WT: 76.5 kg WT: 168.3 lb BMI: 25.86 General: alert, no acute distress ENMT: oral mucosa moist, Cardiovascular: irregular rate and rhythm, normal peripheral perfusion Respiratory: Lungs CTA, respirations non labored Extremities: no deformity, no trauma Neurological: oriented x 4, LOC appropriate for age, CN II-XII intact, motor strength equal & normal bilaterally, speech normal Abdomen: Soft, Nontender, Non-distended, + BS Assessment/Plan 1. Anxiety (F41.9: Anxiety disorder, unspecified) - At this time patient does not seem to be improving at all. - I believe we need to have the patient see a counselor and have Psych on board. - Pt is in agreement. - Have referred and will see the patient back in 1 month Ordered: Body Mass Index (BMI) documented 3008F Chronic Care Management ? 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 Persistent atrial fibrillation (I48.19: Other persistent atrial fibrillation) - Rate controlled. - We will continue to monitor. Ordered: Body Mass Index (BMI) documented 3008F Chronic Care Management ? 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 Severe episode of recurrent major depressive disorder, without psychotic features (F33.2: Major depressive disorder, recurrent severe without psychotic features) - As per number 1. Ordered: Body Mass Index (BMI) documented 3008F Chronic Care Management ? Ambulatory Referral Current tobacco non-user 1036F Depression Screening Positive 3354F [facility] Internal Ambulatory Referral Influenza immunization administered or previously received 4274F Most recent diastolic blood pressure 80-89 mm Hg 3079F Patient screen for fall risk: no falls in last year or 1 fall with no injury in last year 1101F [facility] - Ambulatory Referral Systolic BP 130-139 mm Hg (Most Recent) 3075F 4. BMI 25.0-25.9,adult (Z68.25: Body mass index [BMI] 25.0-25.9, adult) - BMI education given Ordered: Body Mass Index (BMI) documented 3008F Chronic Care Management ? Ambulatory Referral Current tobacco non-user 1036F Depression Screening Positive 3354F [facility] Internal Ambulatory Referral Influenza immunization administered or previously received 4274F Most recent diastolic blood pressure 80-89 mm Hg 3079F Patient screen for fall risk: no falls in last year or 1 fall with no injury in last year 1101F [employer] - Ambulatory Referral Systolic BP 130-139 mm Hg (Most Recent) 3075F 5. Over weight (E66.3: Overweight) - Diet and exercise advised. Ordered: Body Mass Index (BMI) documented 3008F Chronic Care Management ? Ambulatory Referral Current tobacco non-user 1036F Depression Screening Positive 3354F [facility] Internal Ambulatory Referral Influenza immunization administered or previously received 4274F Most recent diastolic blood pressure 80-89 mm Hg 3079F Patient screen for fall risk: no falls in last year or 1 fall with no injury in last year 1101F [employer] - Ambulatory Referral Systolic BP 130-139 mm Hg (Most Recent) 3075F 6. Former smoker (Z87.891: Personal history of nicotine dependence) - Please continue to not smoke. Ordered: Body Mass Index (BMI) documented 3008F Current tobacco non-user 1036F Depression Screening Positive 3354F Influenza immunization administered or previously received 4274F Most recent diastolic blood pressure 80-89 mm Hg 3079F Patient screen for fall risk: no falls in last year or 1 (more content not included)... Normal [facility] Comment on above: Result Comment: Elec tronically Signed By: Tray GREGG, Román Dean.br\Date and Time Signed: 06/03/23 14:08 EST Patient Educationon 06-03-19 Patient Education Nutrition BMI for Adults What is BMI? Body mass index (BMI) is a number that is calculated from a person's weight and height. BMI can help estimate how much of a person's weight is composed of fat. BMI does not measure body fat directly. Rather, it is an alternative to procedures that directly measure body fat, which can be difficult and expensive. BMI can help identify people who may be at higher risk for certain medical problems. What are BMI measurements used for? BMI is used as a screening tool to identify possible weight problems. It helps determine whether a person is obese, overweight, a healthy weight, or underweight. BMI is useful for: ? Identifying a weight problem that may be related to a medical condition or may increase the risk for medical problems. ? Promoting changes, such as changes in diet and exercise, to help reach a healthy weight. BMI screening can be repeated to see if these changes are working. How is BMI calculated? BMI involves measuring your weight in relation to your height. Both height and weight are measured, and the BMI is calculated from those numbers. This can be done either in [place] or metric measurements. Note that charts and online BMI calculators are available to help you find your BMI quickly and easily without having to do these calculations yourself. To calculate your BMI in [place] measurements: 1. Measure your weight in pounds (lb). 2. Multiply the number of pounds by 703. ? For example, for a person who weighs 180 lb, multiply that number by 703, which equals 126,540. 3. Measure your height in inches. Then multiply that number by itself to get a measurement called inches squared. ? For example, for a person who is 70 inches tall, the inches squared measurement is 70 inches x 70 inches, which equals 4,900 inches squared. 4. Divide the total from step 2 (number of lb x 703) by the total from step 3 (inches squared): 126,540 ? 4,900 = 25.8. This is your BMI. To calculate your BMI in metric measurements: 1. Measure your weight in kilograms (kg). 2. Measure your height in meters (m). Then multiply that number by itself to get a measurement called meters squared. ? For example, for a person who is 1.75 m tall, the meters squared measurement is 1.75 m x 1.75 m, which is equal to 3.1 meters squared. 3. Divide the number of kilograms (your weight) by the meters squared number. In this example: 70 ? 3.1 = 22.6. This is your BMI. What do the results mean? BMI charts are used to identify whether you are underweight, normal weight, overweight, or obese. The following guidelines will be used: ? Underweight: BMI less than 18.5. ? Normal weight: BMI between 18.5 and 24.9. ? Overweight: BMI between 25 and 29.9. ? Obese: BMI of 30 or above. Keep these notes in mind: ? Weight includes both fat and muscle, so someone with a muscular build, such as an athlete, may have a BMI that is higher than 24.9. In cases like these, BMI is not an accurate measure of body fat. ? To determine if excess body fat is the cause of a BMI of 25 or higher, further assessments may need to be done by a health care provider. ? BMI is usually interpreted in the same way for men and women. Where to find more information For more information about BMI, including tools to quickly calculate your BMI, go to these websites: ? Centers for Disease Control and Prevention: www.cdc.gov ? [place] [employer]: www.heart.org ? National Heart, Lung, and Blood [place]: www.nhlbi.nih.gov Summary ? Body mass index (BMI) is a number that is calculated from a person's weight and height. ? BMI may help estimate how much of a person's weight is composed of fat. BMI can help identify those who may be at higher risk for certain medical problems. ? BMI can be measured using [place]ian measurements or metric measurements. ? BMI charts are used to identify whether you are underweight, normal weight, overweight, or obese. This information is not intended to replace advice given to you by your health care provider. Make sure you discuss any questions you have with your health care provider. Document Revised: 12/28/2019 Document Reviewed: 11/04/2019 [employer] Patient Education ? 2022 [employer] [facility] Consultation Noteon 06-02-19 Consultation Note [id number]#1.00TIFF [facility] Immunization Recordson 05-28 Immunization Records [id number]#1.00TIFF [facility] Consultation Noteon 05-20-19 Consultation Note [id number]#1.00TIFF [facility] Consultation Noteon 05-18-19 Consultation Note [id number]#1.00TIFF [facility] Consultation Noteon 05-14-19 Consultation Note [id number]#1.00TIFF Normal [facility] Ambulatory Visit Summaryon 1 06-16-2022 Ambulatory Visit Summary MARTHA DALEY :1955 Visit Date:04/15/2023 Ambulatory Visit Instructions Your Diagnosis BMI 26.0-26.9,adult Overweight Former smoker Your Care Team Attending Physician - Adali Mendoza Primary Care Physician - Román Feliz MD This Is Your Medications List [facility] Prescription (Handicap Placard, 6 months) apixaban (Eliquis 5 mg oral tablet) atorvastatin (atorvastatin 10 mg Tab) busPIRone (busPIRone 5 mg Tab) celecoxib (Celebrex 400 mg oral capsule) celecoxib (celecoxib 400 mg oral capsule) fluticasone nasal (Flonase 0.05 mg/inh [place]) metoprolol (metoprolol tartrate 100 mg Tab) olanzapine (olanzapine 5 mg Tab) Procedures Performed Arthroplasty of the hip (07/07/2016), Colonoscopy (11/23/2014), EGD - Esophagogastroduodenoscopy (11/23/2014), Arthroplasty of the hip, Cholecystectomy, Colonoscopy, Tubal ligation, Vaginal total hysterectomy. Discharge Vitals Temperature (Temporal Artery) 37.0 ?C Heart Rate (Peripheral) 64 Respiratory Rate 16 Blood Pressure 102/66 Height 172 cm Height 68 in Weight 79.4 kg Weight 174.68 lb BMI 26.84 What to do next Scheduled Follow-Up Appointments 2023 3:15 PM EST With: Román Feliz MD Where: [facility] [address] [place] [phone] \.br\ Medications\.br\ What How Much When Why Instructions\.br \ Unchanged apixaban (Eliquis 5 mg oral tablet) See instructions TAKE ONE TABLET BY MOUTH TWICE A DAY \.br\ Unchanged atorvastatin (atorvastatin 10 mg Tab) See instructions TAKE ONE TABLET BY MOUTH DAILY \.br\ Unchanged busPIRone (busPIRone 5 mg Tab) See instructions TAKE ONE TABLET BY MOUTH THREE TIMES A DAY \.br\ Unchanged celecoxib (Celebrex 400 mg oral capsule) 1 Capsules By Mouth Every day\.br\ Unchanged celecoxib (celecoxib 400 mg oral capsule) 1 Capsules By Mouth Every day Pickup at [facility]\.br\ Unchanged fluticasone nasal (Flonase 0.05 mg/ inh [place]) 1 Sprays Nasal Inhalation 2 times a day Taste impairment BMI 28.0-28.9,adult Overweight each nostril \.br\ Unchanged metoprolol (metoprolol tartrate 100 mg Tab) 1 Tablets By Mouth 2 times a day\.br\ Unchanged Misc Prescription (Handicap Placard, 6 months) See instructions Anxiety Knee pain, right BMI 28.0-28.9,adult Class 1 obesity due to excess calories in adult Handicap Placard, 6 month \.br\ Unchanged olanzapine (olanzapine 5 mg Tab) 1 Tablets By Mouth Every day\.br\ Pharmacy Information\.br\ [facility]: [address], [place] [phone]\.br\ Allergies\.br\ Adhesive Bandage (Unknown)\.br\ codeine (Unknown)\.br\ iodine (Unknown)\.br\ penicillin (Unknown)\.br\ Problems\.br\ Ongoing - Any problem that you are currently receiving treatment for.\.br\ Allergic rhinitis, seasonal\.br\ Anxiety\.br\ BMI 27.0-27.9,adult\ .br\ Change in bowel habits\.br\ Chronic GERD\.br\ Diverticulosis\. br\ Dysphagia\.br\ Early satiety\.br\ Endometritis\.br \ Family history of colon cancer in father\.br\ Fibromyalgia\.br \ Hiatal hernia\.br\ History of depression\.br\ History of diverticulitis\. br\ History of nephrolithiasis\ .br\ Impaired ambulation\.br\ Knee pain, right\.br\ Lupus\.br\ Migraines\.br\ OA (osteoarthritis) \.br\ Osteopenia\.br\ Persistent atrial fibrillation\.br \ Pre-op exam\.br\ Primary fibrositis\.br\ Pure hypercholesterol emia\.br\ Severe episode of recurrent major depressive disorder, without psychotic features\.br\ Taste impairment\.br\ Urinary incontinence\.br \ Vitamin D deficiency\.br\ Patient Survey\.br\ You may receive a survey via text or e-mail asking about your office visit. Please share your experience with us by completing your survey. We appreciate your feedback and thank you for choosing us for your care.\.br\ \.br\ [facility] Family Medicine Office/Clini c Noteon 04-15-2023 Family Medicine Office/Clinic Note HPI Staff Martha is a 67 year old female presenting for acute sick visit has had her symptoms for a month but says she won't come in until the discharge turns color. Didn't covid test during any of this time Respiratory C/O: Onset: a month ago Body aches: yes Chest congestion: yes Chills: yes Cough: yes Sputum production: yes hasn't looked at it Sore throat: yes Ear complaints: no Eye itching/watering: yes both Fever: no hasn't checked her temp Headache: yes slight Nasal congestion: yes Nasal discharge: yes green when blows nose in the morning and some dark yellow, it drips all day long Poor appetite: yes Reduced activity: yes Sinus pain/pressure: yes pressure Sneezing: yes Wheezing: no Ill contacts: no Remedies tried: tylenol Questions/Concerns: needs her celecoxib refilled History of Present Illness pt presents today with c/o nasal drainage, cough, congestion, body aches, chills Review of Systems PHQ Score Initial Depression Screen Score: 2 SCORE ROS - Provider Constitutional: no fever, no chills, no sweats, no fatigue Respiratory: no shortness of breath, yes cough, no orthopnea, no wheezing. nasal congestion, Cardiovascular: no chest pain, no palpitations, no edema. Neurologic: no headache, no dizziness, no numbness, no weakness. Physical Exam Vitals & Measurements T: 37.0 ?C(Temporal Artery) HR: 64(Peripheral) RR: 16 BP: 102/66 SpO2: 100% HT: 68 in HT: 172 cm WT: 79.4 kg WT: 174.68 lb BMI: 26.84 General: alert, no acute distress ENMT: oral mucosa moist, yes pharyngeal erythema or no exudate sinus tenderness, green nasal drainage Cardiovascular: regular rate and rhythm, normal peripheral perfusion Respiratory: Lungs CTA, respirations non labored Extremities: no deformity, no trauma Neurological: oriented x 4, LOC appropriate for age, CN II-XII intact, motor strength equal & normal bilaterally, speech normal Assessment/Plan 1. Sinusitis (J32.9: Chronic sinusitis, unspecified) pt c/o cough, congestion, body aches and chills. will treat with z jones and medrol dose pack. all questions answered. RTC as needed 2. BMI 26.0-26.9,adult (Z68.26: Body mass index [BMI] 26.0-26.9, adult) BMI education complete Ordered: azithromycin, = 1 packet(s), Oral, As Directed, as directed on package labeling, X 5 day(s), # 6 tab(s), Refills(s) 0, Pharmacy: [facility], 172, cm, 04/15/23 16:16:00 EST, Height/Length Dosing, 79.4, kg, 04/15/23 16:16:00 EST, Weight Dosing methylPREDNISolone, = 1 packet(s), Oral, As Directed, as directed on package labeling, X 6 day(s), # 21 tab(s), Refills(s) 0, Pharmacy: [facility], 172, cm, 04/15/23 16:16:00 EST, Height/Length Dosing, 79.4, kg, 04/15/23 16:16:00 EST, Weight Dosing Body Mass Index (BMI) documented 3008F Current tobacco non-user 1036F Depression Screening Negative 3352F Influenza immunization administered or previously received 4274F Most recent diastolic blood pressure <80 mm Hg 3078F Patient screen for fall risk: no falls in last year or 1 fall with no injury in last year 1101F Systolic BP <130 mm Hg (Most Recent) 3074F 3. Overweight (E66.3: Overweight) see above Ordered: azithromycin, = 1 packet(s), Oral, As Directed, as directed on package labeling, X 5 day(s), # 6 tab(s), Refills(s) 0, Pharmacy: [facility], 172, cm, 04/15/23 16:16:00 EST, Height/Length Dosing, 79.4, kg, 04/15/23 16:16:00 EST, Weight Dosing methylPREDNISolone, = 1 packet(s), Oral, As Directed, as directed on package labeling, X 6 day(s), # 21 tab(s), Refills(s) 0, Pharmacy: [facility], 172, cm, 04/15/23 16:16:00 EST, Height/Length Dosing, 79.4, kg, 04/15/23 16:16:00 EST, Weight Dosing Body Mass Index (BMI) documented 3008F Current tobacco non-user 1036F Depression Screening Negative 3352F Influenza immunization administered or previously received 4274F Most recent diastolic blood pressure <80 mm Hg 3078F Patient screen for fall risk: no falls in last year or 1 fall with no injury in last year 1101F Systolic BP <130 mm Hg (Most Recent) 3074F 4. Former smoker (Z87.891: Personal history of nicotine dependence) continue not smoking Ordered: azithromycin, = 1 packet(s), Oral, As Directed, as directed on package labeling, X 5 day(s), # 6 tab(s), Refills(s) 0, Pharmacy: [facility], 172, cm, 04/15/23 16:16:00 EST, Height/Length Dosing, 79.4, kg, 04/15/23 16:16:00 EST, Weight Dosing methylPREDNISolone, = 1 packet(s), Oral, As Directed, as directed on package labeling, X 6 day(s), # 21 tab(s), Refills(s) 0, Pharmacy: [facility], 172, cm, 04/15/23 16:16:00 EST, Height/Length Dosing, 79.4, kg, 04/15/23 16:16:00 EST, Weight Dosing Body Mass Index (BMI) documented 3008F Current tobacco non-user 1036F Depression Screening Negative 3352F Influenza immunization administered or previously received 4274F Most recent diastolic blood pressure <80 mm Hg 3078F Patient screen for fall risk: no falls in last year (more content not included)... Normal [facility] Comment on above: Result Comment: Elec tronically Signed By: Adali Mendoza\.lorene\Date and Time Signed: 04/15/23 16:26 EST Consultation Noteon 04-08-20 Consultation Note [id number]#[id number] [facility] Consultation Noteon 03-17-20 Consultation Note [id number]#1.00TIFF [facility] - Clinical Noteon Retail - Clinical Note [id number]#1.00TIFF [facility] Family Medicine Office/Clini c Noteon 02-18-2023 Family Medicine Office/Clinic Note HPI Staff Martha is a 67 year old female presenting for 4 week follow up anxiety Follow up for Mental Status: Medication adherence- Yes, takes medication as prescribed MEdication refill needed: no Suicidal thoughts-Not at this time Most recent JANET: 2 Most recent PHQ: 1 flu: UTD questions/concerns: not taking the gabapentin it's just too much for her messes her gut up History of Present Illness - NO issues today. - Please see staff HPI. Review of Systems PHQ Score Initial Depression Screen Score: 1 Physical Exam Vitals & Measurements T: 37.1 ?C(Temporal Artery) HR: 68(Peripheral) RR: 16 BP: 132/78 SpO2: 98% HT: 68 in HT: 172 cm WT: 83.8 kg WT: 184.36 lb BMI: 28.33 General: alert, no acute distress ENMT: oral mucosa moist, Cardiovascular: regular rate and rhythm, normal peripheral perfusion Respiratory: Lungs CTA, respirations non labored Extremities: no deformity, no trauma Neurological: oriented x 4, LOC appropriate for age, CN II-XII intact, motor strength equal & normal bilaterally, speech normal Abdomen: Soft, Nontender, Non-distended, + BS Assessment/Plan 1. Anxiety (F41.9: Anxiety disorder, unspecified) - Well controlled. - No issues - Continue on meds as before Ordered: Misc Prescription, Handicap Placard, 6 months, See Instructions, 1 EA, 0, Handicap Placard, 6 month, Supply Body Mass Index (BMI) documented 3008F Current tobacco non-user 1036F Depression Screening Negative 3352F Influenza immunization administered or previously received 4274F Most recent diastolic blood pressure <80 mm Hg 3078F Patient screen for fall risk: no falls in last year or 1 fall with no injury in last year 1101F Systolic BP 130-139 mm Hg (Most Recent) 3075F 2. Knee pain, right (M25.561: Pain in right knee) - s/p replacement. - Short term placard given Ordered: Misc Prescription, Handicap Placard, 6 months, See Instructions, 1 EA, 0, Handicap Placard, 6 month, Supply 3. BMI 28.0-28.9,adult (Z68.28: Body mass index [BMI] 28.0-28.9, adult) - BMI education given Ordered: Misc Prescription, Handicap Placard, 6 months, See Instructions, 1 EA, 0, Handicap Placard, 6 month, Supply Body Mass Index (BMI) documented 3008F Current tobacco non-user 1036F Depression Screening Negative 3352F Influenza immunization administered or previously received 4274F Most recent diastolic blood pressure <80 mm Hg 3078F Patient screen for fall risk: no falls in last year or 1 fall with no injury in last year 1101F Systolic BP 130-139 mm Hg (Most Recent) 3075F 4. Class 1 obesity due to excess calories in adult (E66.09: Other obesity due to excess calories) - Diet and exercise advised. Ordered: Misc Prescription, Handicap Placard, 6 months, See Instructions, 1 EA, 0, Handicap Placard, 6 month, Supply Body Mass Index (BMI) documented 3008F Current tobacco non-user 1036F Depression Screening Negative 3352F Influenza immunization administered or previously received 4274F Most recent diastolic blood pressure <80 mm Hg 3078F Patient screen for fall risk: no falls in last year or 1 fall with no injury in last year 1101F Systolic BP 130-139 mm Hg (Most Recent) 3075F Follow-up No qualifying data available Problem List/Past Medical History Ongoing Allergic rhinitis, seasonal Anxiety BMI 27.0-27.9,adult Change in bowel habits Chronic GERD Diverticulosis Dysphagia Early satiety Endometritis Family history of colon cancer in father Fibromyalgia Hiatal hernia History of depression History of diverticulitis History of nephrolithiasis Impaired ambulation Knee pain, right Lupus Migraines OA (osteoarthritis) Osteopenia Persistent atrial fibrillation Pre-op exam Primary fibrositis Pure hypercholesterolemia Severe episode of recurrent major depressive disorder, 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 Medications apixaban 5 mg oral tablet, 5 mg= 1 tab(s), Oral, BID, 1 refills atorvastatin 10 mg Tab, 10 mg= 1 tab(s), Oral, Daily, 1 refills busPIRone 5 mg Tab, See Instructions Celebrex 400 mg oral capsule, 400 mg= 1 cap(s), Oral, Daily Flonase 0.05 mg/inh [place], 1 spray(s), Nasal, BID Handicap Placard, 6 months, See Instructions metoprolol tartrate 100 mg Tab, 100 mg= 1 tab(s), Oral, BID, 3 refills olanzapine 5 mg Tab, 5 mg= 1 tab(s), Oral, Daily Allergies Adhesive Bandage (Unknown) codeine (Unknown) iodine (Unknown) penicillin (Unknown) Social History Alcohol - Denies Alcohol Use, 01/28/2022 Household alcohol concerns: No., 10/16/2022 Substance Abuse - Denies Substance Abuse, 01/28/2022 Tobacco - Denies Tobacco Use, (more content not included)... Normal [facility] Comment on above: Result Comment: Elec tronically Signed By: Tray GREGG, Román Wilcox\.br\Date and Time Signed: 02/18/23 16:22 EDT Telemetry Stripson 3 Telemetry Strips [id number] [facility] Heart and Vascular Office/Cl inic Noteon 02-14-2023 Heart and Vascular Office/Clinic Note Chief Complaint 2 month f/u History of Present Illness Martha Daley is a 67-year-old female who presents today for a follow-up after recent knee arthroplasty and atrial fibrillation. She had knee arthroplasty recently and has been recovering well. She reports that the hospital has been concerned and that her medication needs to be amended. Her blood pressure is 122/62 mmHg and pulse rate is 83 bpm today. She reports having atrial fibrillation episode today at 4:00 AM and another was during her 2nd day in the hospital. She was unable to sleep last night because she felt a pounding sensation. She has been on metoprolol 50 mg twice a day and blood thinners. She is unable to determine her heart rates when she is in atrial fibrillation, but she feels pain and her watch does not correlate with her symptoms. Review of Systems Constitutional: no fever, no sweats, no weakness Skin: no rash, no lesions, no bruising/petechiae ENMT: no sore throat, no congestion, no hoarseness Respiratory: no shortness of breath, no cough, no orthopnea, no wheezing Cardiovascular: no chest pain, no palpitations, no edema Gastrointestinal: no nausea, no vomiting, no diarrhea, no GI bleeding Genitourinary: no anuria/oliguria no hematuria Musculoskeletal: no back pain, no trauma Neurologic: no headache, no dizziness, no numbness, no weakness Psychiatric: no sleeping problems, no irritability, no anxiety/depression. Heme/Lymph: no bleeding tendency, no bruising tendency Allergy/Immunologic: no recurrent infections, no impaired immunity Additional ROS info: Except as noted in the above Review of Systems and in the History of Present Illness all other systems have been reviewed and are negative or noncontributory Physical Exam Vitals & Measurements HR: 83(Peripheral) BP: 122/62 SpO2: 97% HT: 68 in HT: 172 cm WT: 83.1 kg WT: 182.82 lb BMI: 28.09 General: alert, no acute distress Skin: warm, dry intact Head: atraumatic, normocephalic Neck: trachea midline, no JVD, no bruit Eye: normal conjunctiva, sclera clear ENMT: oral mucosa moist Cardiovascular: regular rate and rhythm, no murmur, normal peripheral perfusion Respiratory: lungs CTA, respirations non labored Chest wall: no deformity. Gastrointestinal: soft, non-distended, no tenderness, no guarding. Back: no tenderness, normal ROM, normal alignment. Extremities: no edema, no deformity, no trauma Neurological: oriented x 4, LOC appropriate for age, sensation equal & normal bilaterally, speech normal Psychiatric: cooperative, affect appropriate for age, normal judgement, normal psychiatric thoughts. Assessment/Plan Martha Daley is a 67-year-old female with paroxysmal atrial fibrillation. 1. Persistent atrial fibrillation (I48.19: Other persistent atrial fibrillation) Recent knee surgery did have an episode of exacerbation of rate in atrial fibrillation but seems to be good now. Her heart rate has improved. We will increase metoprolol to 100 mg twice a day. Follow-up in 6 months. Portions of this record may have been created with voice recognition artificial intelligence software, specifically [employer], [employer] and or [employer]. Substitutions may have occurred due to the inherent limitations of voice recognition and artificial intelligence software. Documentation services were performed after patient or guardian consented to allow [employer] to record this visit. ANA MARÍA talent acquisition specialist and provider reviewed before signing. ANA MARÍA: [employer] Follow-up No qualifying data available Problem List/Past Medical History Ongoing Allergic rhinitis, seasonal Anxiety BMI 27.0-27.9,adult Change in bowel habits Chronic GERD Diverticulosis Dysphagia Early satiety Endometritis Family history of colon cancer in father Fibromyalgia Hiatal hernia History of depression History of diverticulitis History of nephrolithiasis Impaired ambulation Knee pain, right Lupus Migraines OA (osteoarthritis) Osteopenia Persistent atrial fibrillation Pre-op exam Primary fibrositis Pure hypercholesterolemia Severe episode of recurrent major depressive disorder, 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 Medications apixaban 5 mg oral tablet, 5 mg= 1 tab(s), Oral, BID, 1 refills atorvastatin 10 mg Tab, 10 mg= 1 tab(s), Oral, Daily, 1 refills busPIRone 5 mg Tab, See Instructions Celebrex 400 mg oral capsule, 400 mg= 1 cap(s), Oral, Daily Flonase 0.05 mg/inh [place], 1 spray(s), Nasal, BID gabapentin 100 mg Cap metoprolol tartrate 100 mg Tab, 100 mg= 1 tab(s), Oral, BID, 3 refills olanzapine 5 mg Tab, 5 mg (more content not included)... [facility] Comment on above: Result Comment: Elec tronically Signed By: Russell Cardenas MD\.br\Date and Time Signed: 02/14/23 14:38 EDT\.br\Electronically Co-Signed By: Toby Holguin\.br\Date and Time Co-Signed: 02/12/23 16:21 EDT\.br\Electronically Co-Signed By: Toby Holguin\.br\Date and Time Co-Signed: 02/12/23 16:27 EDT Physician Orderon 02-13-2023 Physician Order [id number] [facility] Ambulatory Visit Summaryon 1 Ambulatory Visit Summary MARTHA DALEY :1955 Visit Date:02/12/2023 Ambulatory Visit Instructions Your Diagnosis Persistent atrial fibrillation Your Care Team Attending Physician - Russell Cardenas MD Primary Care Physician - Román Feliz MD Referring Physician - NONE, XXXX This Is Your Medications List apixaban (apixaban 5 mg oral tablet) atorvastatin (atorvastatin 10 mg Tab) busPIRone (busPIRone 5 mg Tab) celecoxib (Celebrex 400 mg oral capsule) fluticasone nasal (Flonase 0.05 mg/inh [place]) gabapentin (gabapentin 100 mg Cap) metoprolol (metoprolol tartrate 100 mg Tab) olanzapine (olanzapine 5 mg Tab) Procedures Performed Arthroplasty of the hip (07/07/2016), Colonoscopy (11/23/2014), EGD - Esophagogastroduodenoscopy (11/23/2014), Arthroplasty of the hip, Cholecystectomy, Colonoscopy, Tubal ligation, Vaginal total hysterectomy. Discharge Vitals Heart Rate (Peripheral) 83 Blood Pressure 122/62 Height 172 cm Height 68 in Weight 83.1 kg Weight 182.82 lb BMI 28.09 What to do next Scheduled Follow-Up Appointments Thursday 4:00 PM EDT With: Román Feliz MD Where: [facility] Normal [address] [place] [address]- \.br\ Medications\.br\ What How Much When Why Instructions\.br \ Changed metoprolol (metoprolol tartrate 100 mg Tab) 1 Tablets By Mouth 2 times a day Pickup at [facility]\.br\ Unchanged apixaban (apixaban 5 mg oral tablet) 1 Tablets By Mouth 2 times a day\.br\ Unchanged atorvastatin (atorvastatin 10 mg Tab) 1 Tablets By Mouth Every day\.br\ Unchanged busPIRone (busPIRone 5 mg Tab) See instructions TAKE ONE TABLET BY MOUTH THREE TIMES A DAY \.br\ Unchanged celecoxib (Celebrex 400 mg oral capsule) 1 Capsules By Mouth Every day\.br\ Unchanged fluticasone nasal (Flonase 0.05 mg/ inh [place]) 1 Sprays Nasal Inhalation 2 times a day Taste impairment BMI 28.0-28.9,adult Overweight each nostril \.br\ Unchanged gabapentin (gabapentin 100 mg Cap) TAKE ONE CAPSULE BY MOUTH THREE TIMES A DAY FOR 30 DAYS \.br\ Unchanged olanzapine (olanzapine 5 mg Tab) 1 Tablets By Mouth Every day\.br\ Pharmacy Information\.br\ [facility]: [address], [place] [id number] [phone]\.br\ Allergies\.br\ Adhesive Bandage (Unknown)\.br\ codeine (Unknown)\.br\ iodine (Unknown)\.br\ penicillin (Unknown)\.br\ Problems\.br\ Ongoing - Any problem that you are currently receiving treatment for.\.br\ Allergic rhinitis, seasonal\.br\ Anxiety\.br\ BMI 27.0-27.9,adult\ .br\ Change in bowel habits\.br\ Chronic GERD\.br\ Diverticulosis\. br\ Dysphagia\.br\ Early satiety\.br\ Endometritis\.br \ Family history of colon cancer in father\.br\ Fibromyalgia\.br \ Hiatal hernia\.br\ History of depression\.br\ History of diverticulitis\. br\ History of nephrolithiasis\ .br\ Impaired ambulation\.br\ Knee pain, right\.br\ Lupus\.br\ Migraines\.br\ OA (osteoarthritis) \.br\ Osteopenia\.br\ Persistent atrial fibrillation\.br \ Pre-op exam\.br\ Primary fibrositis\.br\ Pure hypercholesterol emia\.br\ Severe episode of recurrent major depressive disorder, without psychotic features\.br\ Taste impairment\.br\ Urinary incontinence\.br \ Vitamin D deficiency\.br\ Patient Survey\.br\ You may receive a survey via text or e-mail asking about your office visit. Please share your experience with us by completing your survey. We appreciate your feedback and thank you for choosing us for your care.\.br\ \.br\ [facility] Coding Summaryon 02-12-2023 Coding Summary HTMLBase 64 OfobxeajVZc9lVx+PGhlYWQ+PE1 UOBScC90ozHMshR5mQ1HLSQpJLb diILLDGXhCKgQecwSfRJ4voGKkZ XJu IC8+FB1rVLBpHueldYWop7I3fQT 6F04iem3hWZdfvDL3HFIaGwKklo sgs6ymzKs9GQnlThkmEjZk DDFxbD75DTI8xK21Cx62qEQwfFG ml0sauIf9EwDpBWJdOWI8mCshHK ppi9WaTQCgA95eaBOgi7F6 SGJsiYumxECzFdHzdGN8yI2nYBg nwrdjx7pookodDkc2wt75vITwa5 B5uBR4X3HjrdX5TRZimCFy EzuizDYMfU2ezktlk9uvhygqKjI dZSTwFZt0QYf9TPOyzPjjGuDeZO 13LNB1NARukcKcR1VwHVDy fSlzFuW5q8E4Lx0RV5NXRwctN8D NTUFSWTwvdGQ+EQ42bz53A2EfBb txKga5NCHtLCE0tII2tK7k EKDyWNcpr1D2yHN1C5SuvxLuir4 zz0brKIIhKQntQ12gpNLqi7H4ZL YyqXJ1KFOrsKzvQfDcxM80 Oyc+IFQfxFzyg8NlErskb6duz2p lqJl9PzfyONQhoeBkfOxkRKK1r5 GmGr9nUYYsoWF4mKN1nV6s YaWoSqF9CFauK767GhCgrXFqMwn kA01lU8QmjDN+ISBfKaz1UTScbJ aoRO1vS8QtNFWomobdqPQq hMhvWX1qTUVjywhiWNVylS5fLQE gE5p7XhJhOkH8BQvwI0AaSXAwds ilHn43sD2rNtYbFiL1EWur H5VgvlW1OYXuvLNqDVwvBYZ9W82 zp9F1JHWvGVVsLUY9fYP0zX4anH lnbjogbGVmdDsgdmVydGlj DBvnGNtmD720LQZpoFquSlIiYKk uZyBEYXRlOiAgMTAvMjYvMjAyMz wvdGQ+ZNWiPYP0aInqDSRb aOWcBRfsSp8sgVseoUisDW6qBRZ kdoosOZRpsJ1tIHJzfGZvpAbfCS 9fHNDlweutl242CdGnBPF4 NLMkkKLuR3JvaG0zCqChFYJvOLS yF4VkgRTtCRmjO639LAuqVxC3WB ZdttPgB0AbEELjlNcqVyB7 l5N6Mf6Jd7BljyvnM9HmgZWxHsW nWxhkFPb6Q0XqMmueaQD+PC90YW HuBU47BIk2IXT1xBqbVEzj REKkW1BhyN0dXnRhRHBfSJKnLrr +PHRhYmxlIHdpZHRoPScxMDAlJy OkpTpgJD3yTv8dBXZbZKAp dAdexJNpDeYrp3jlLNNbVKquBN7 yvHqgJ1CpoGU8WLBha6v0Hi88C1 6gL2SqqNA+LAUprPZ6yOS1 aM4uVdNwHgD0YRsrF652JaZuhUK yRxhbn9vzq9nlwDn1GlA1GFBukf IrpCoiKTH5j7NjJs14J02s IHdpZHRoPSIxNSUiIHZhbGlnbj0 waO4mFt9+WMLwyUH6wXR1zT1zJz FjIhF9UHraL776ZnFvcJAa Clveu0qve9hxeKl8EeZwTQTfurE edMreWDX2s1OjQt51N9RisJyyx5 BnFyv7fo68qORau5H8xVM3 Y7LbNPZcevklpDFlaCqcNO1xNVX cwgevIKNbuT7qUAZtJ2g9MpMvLu G1MZvtC2SskvS4UFYsrHZc UHGroZVQiC9szqwph6bqwfcjBqC fCZBaVAb6JQp0DWSuxZsbOkUlLX K1UtB9DCA3xSEmzX1ugOfs lyuvxE7aNdt+JRV7sKGblIXFNN6 lOjwvdGQ+IWZxDJK6lRflMCtvHJ BwqD1gNQElY9w7ThWuTkO1 BSkeX1IdlxJ6IXXotWBoEPRocKA VvG7lbcmta8xnfrezJmFxNZUyIA a8IAm0VKAjpObbDoQvTAY2 PjA1QTR5hKScpL7kvHwlrbdkuH0 wOyc+BacrsVptBSC6KVm3J5CaFk a8NZNzmPueBT6wfLApPNhg Cd0uwXhptStbQJ5eVVCbrcewi69 6OrZda6jjQZVjoMFiPMzrARD5O2 6sc4M9RUBqWLMxZRK1lDZ6 fU8arWarvqqulJRbrPjkaqPrvDe qFFdjQGwcW187PIJhbUhmAyVbBV p8S6SmMtm2UUFfjIxnQS5l qEEzFWboBe3seCnznDohPG9gLST abvhro521BsXna4vzHRSjnDZvAW pdEID2N14ct0W0DKCzLKHs ZKE0gUI5aQ1srVkgcszvaPFcyRr qvfYfxNbhHBciVWpgX296WUGmeS mtYlAziLq0J8FjQja1DXDu vSpvWV6eiSHtSPeaUt4leXemsCn zZU5zDPUlotvlv084HzDne5qqID FovFRyEAirMOK1V76fd1C6 SEMjGCSkIDR6fOV4dM1sgKfidgd gbGVmdDsgdmVydGljYWwtYWxpZ2 46IHRvcDsnPlBhdGllbnQg WFizZZr8N2YxAwoyeLM+TR09QDF tYJ83kBMkrIZur7jsgKl8BsCuLP EpWBD3rVthJRcxq0BsRBCu H74asWXqc4D3RCErzEhfcBLyDwH bqWY4tF0oYMcnumlfd4sctohiPw hhm9yiqh57lT23M94wHHcy MDSlBMRpOEJcYHUizKshbz8bpP5 wIi8+NSQonIR5gMM0zP8rHXUqFa Y1WEfuB537BtMnxDVzPcho q1ole4kpxAm6PdP7WVUzokCgzRv wSKY3w1TrCl81F32ePWkkDZQkOO GvHUJxZPUdiRjewn8cuS0i Ii8+AWLifVU0tVF5eB2sIuQwHxT 7EGbdJ515VuDnxZSsVescE26fY4 JvdXA+GVNsBxq0IGGfgGja EP1jiFDzYEsuBn3qSVI0PvOvDdD zSEcrH7XmVDQlullvozhcdVZ9DO LuNIGdiV59Dc4rzUdpNXOb bIVWrC0bpumaq5dmrietTnOcXBW zPFe2EMd1LHTmlIzxFvMaYOT6Oq Q9SBE5oVXogP4uzKhmfytm fS2kL1SgZOZkpxjaNq55rE5iLnV rFlP3RYynFci+Q42VLzblAYLFYR dAEDu1I9SgEry5OYDuqQgd CG5iwFFeTVkyBi5kuRkemDveXV8 bXEYdqkdePFKrcU1kABVrrPGktW gcJP8dSGForffna749OhEx JKQ4DHNjzZAtR2SqnQ7gWeLiDJI fFAPiL2QwrQUqHBqfO074TJtpPp C5RLAokfXhX5CfMRRapFag ZrU5z4Y9Cd3oYm5vUf2lODV7SI0 8GW04tHNec5R8rJM2O4FlAUAfbc fnrjkegYD0HHMaDQHarR41 rBPmEPnfYk4xa3V9h459LKSrPJI xjE07Nj2ukXgePXLseLREoE9ivn yes6ywqxokGcMzFFXcOHs7 YTv2HSQdoTmjArGhABQ8MjC7MSD 1oBJtgP7aqUubuzxiiW8pLzs+Nj cxLMTlrcK4G7GdLat5TSRw dKapPQ6cuRRjZLzyLd0gkZesgHz eDJ4cVKOyeghdKTFyfW4nXJFmsJ MzdBtrZL2iKKTpljjna272 GeScBKX5LWFrlJNaU2XtmN9eUlK cUIEeMSCjC6YprQCgOPynM083CD hlTzO1USXjcbTtK2OhQRPn uZqkPaL7q5F1Tt7RYB3SAOI7D7T hNsj4YZObrIncRQ6nqSDjFPpyEi 3zwLrjqAtlRS8eESKyfgtl UGDboD6eWPJsaMGbsMpmUK7qHJD eivxiv343DpAmFPP4IGGdiISnX3 EbdJ4aCoWiMZYyFNFzT9Ub uURtTFybK732IKzaAuW2XXWrcoI rM7FuZQOygNseKwQ7m1O3Wr1Qt9 jzO7MxMBbecJT+NA04mv31 O0DuErosUin2ZKMnPSX0xHY5oB4 hPDTdHQtzq2R0nJH1D1TsyvHtia 7vb3yrLAGhGLztS09nrWWm z6P1XIMfhSY8QZVtfXvvFoBfpK0 3Oyc+KUKioGirl3EqLhciu7usu3 delPn0YpUpCGHukzKpeSsl ZFW8u9ZeAy60N10qRMqvYUWfKDM xRIAaKWNyiSwgyq6kuM7fKi8+PG LygLK6zKH6hU7jQxWkWkO7 IFloP159IdMpmQIoXfwct1nat1i irIr5IwEpAGCnwzMbzPzoHEI0k4 AcXt63O6IhhQqew8MaHis9 tj64cJCot5F4wFQ4M6WaGOWxjon rvEGkkEifAI9tGJTyjvzrHNDctY 7mTTWkQ3m1BhNuYkZ2LFpk Q0FgjkU3QEOhjEDzBHSrqMQNgB8 grzcpz1lihazaOuFoMBRoRRn9LH i5EYJlfVpyQgUsLSD6CgS9 GNQ1pXTlhQ6vlQzcfwxkdW8iVix +JVs1o1qomGJdGY6yqVW8NR66DB 21eHMmu6P9iGV6Z7XrDSKa ldkjcgwhnTE3UGMnUIZgbF90Yz6 zzOqxRl7uQZIlVSH6TIVzsNMgO6 YyrK0qIqJwCOEuTPUvW5Cb yONbVYuwD631NXpiGfK9MTWyzmP qF4QlYHXkyHpmLgB9e4I7Py9AVH 79MM59JE26tDZzb2L5wDB9 L9OfSXBwyyhgmzsteSE5ARCsIUR asK24Yi8cpJhdAp9sSVEaLSI4UR YjyQGkF9QefS2cMeMqEOZn SXVvF9ZhrNByHVmnM987MWmnOeV 4FNSxqcHwX9LrHYMpiBwfEwT9h3 X8Ec9YCu53VO67CT16hQXm t9N0uRK8V1TzXDIlvztrdstqvZG 9FDKpEVSvdV42My8cyBmdBc1uPA KlKVT8XOGrrSIjO7KecF2u FhKrXZFuIJGhS7VodDBwJDujZ74 7NDfjYyM4RRAlkjYnT3OpIUWubB clOkL0g4Z2Bv3TRBiohyu0 E4YeYkjhhLQ+HI76KDTcLN90wSP tuLXlq2gugZd5WqEbADHfUHK2oX omVYbsb2TiOTAyS41toANa c2U (more content not included)... [facility] Coding Summaryon 02-10-2023 Coding Summary HTMLBase 64 FwiuqetvQHe0mCq+PGhlYWQ+PE1 TEBEdR72vxCOpqR0rX1ZCXDsUFl cyVZBZKUyAAdYgkgOmBC2hpRKtG XJu IC8+IF0mIQGmDmdfoSYkp0D2kKU 0N82lmu4pDMkeeZP5UQMmQwBnzv jyh6toqDl7KJpwUlxwDyJo BKOuvR33DNH7iJ24Qc56eQNlmUA de5wikZf0TnWjQAPyKWL9pTzsNB ggg5RvFIXoN89okJPaa2R4 NOAjnZhnnTSySnXisPC3cT4oNTd hduvid9vnaibzGbv8cc04aANpx2 R4wRV1B0ZyhoH7NZPzyJUo TtildRTQbI3ileygb2yrzyubTbN fFFTvPHo7VHj2OXCdtVhpRfExAF 24FRU1OOUrkbZwY0DxFAUc nFqhUeE5a5X5En8YF7CSAzgvL8C NTUFSWTwvdGQ+MN74sm77V5OpOm zvEpi5IAKcKFT8qSQ2pH4n HHRlHFind8L3iRB7A6EsdtHqpt1 hg6xkKTKbXThuU95wbQNns0C5IG ZisOJ8UCFcjQpiKsHejO38 Oyc+GKHedAnjw7NyNfvzq0oqr3w scNc9GztwLCNttqWdbLfeFZS0w2 CyGg1rVHAgwLU6pJQ6sA8j EsJrViJ5HSvvB417YpZmtEWoUpl aF74pW9XhcJK+MGVgUsa1NVLexR uxEQ0mO1PoINOajncxdDYc lOyrFF6yEMKrptfmGJJlfL3gPOH nJ0p2EeMzKfX4MIupZ3DzRGAdng mlJa26eW6xEyByRxD3KWxk G1MghgJ7FPJrhMEpNXscICY9J56 xh8B7JEBsQZNgSKC4lFB0zE3tbY lnbjogbGVmdDsgdmVydGlj ZFgbFRpzX366CSWmcWqnWgSyQTo uZyBEYXRlOiAgMTAvMjQvMjAyMz wvdGQ+MLEnOPP1bLkqYKZe zJMyTJenId0mfStjxTiwJJ8iPOP rehhhVSCqaA0mVBPceSKqjLnqOR 0dGIKoxyzps557IvKuRNT1 VGSqeJIeT2GqyE5mMpIfUZAxLCO pV5OybJTaIKlwL769IBcnNoV6UO IpseTfE8AvYTEylOueJaI2 g5J4Xk4Lv9NetiflQ3ZwhBWfQiN nXpzpWKa5N9ArTqluiSU+PC90YW WeYX38DNk8RJN5mGtgNDsf OHMeK3CwwU2bFtMhJNYkRWLnLkb +PHRhYmxlIHdpZHRoPScxMDAlJy ZotLveDH9oXa9bECYhDPLh jOemgRRgBsLys2xgRMViWSiuFP0 lmQkmF6DrtSK3SVZlu7i7Wq83G6 8wE0PxjPF+HRFgtEA6mTD4 eE2zZsKnVzV6WVpgZ392ZwGxzGF aSjtzh9vju7qinMt5FjA8HMYycr UpzGpfAVX2h4KsUb82T14y IHdpZHRoPSIxNSUiIHZhbGlnbj0 hxD9aQe0+CNWdjJK8mUP4eO5cRr JwTmN0EPdsJ764TfNaySGn Wgcmx1liv0xvhNd6AvRrFBAhbsM mpKewRML5z3ImYm94M7CezEqeu3 QiMoi1yb58iNPne6K2nOD3 O7GwZNTvjxhdqFUnxLpsVF1tTTK cmjzfTIXxnD2yLFVfZ5n1JgQoFs N4CQfdD4HunhY2HUMokZRg ETMloCXKqZ0kthdfm4zbvalzYaP lGQDdPCc3TNa9FJBqzZaeGlWqNH X1BxO9EHB9xZLpfC3ieIrg xqzrmW7dDiw+OCX8mFXyhBBJLN6 lOjwvdGQ+GGXhWEU7sGoyARwdQL VocX0rEEBxJ9x1OxTbUoZ2 CWpfH5TgppX7KHVfhBRrYSYcsPE WhW7ukgfti1wzaueaIvScNOKhBY d6RYq6ZIEsiHzbDsXrVHT2 GoS2RXW3aJBgzR1gsFsacqsdzQ7 wOyc+SsrkjAhvHSN4ZZx8Z7IkCt i2WNUzaXrfHG3xrWZzRNcx Bl3eeJtthSjkJS1yNDBjaqsrh03 9TpDmz7caVRAxkJSqUEfqGMP3I3 7ao6Y1EGYsDNWnBMW4gAY5 rG7huZwbthemnZKtzXhrfyLcaSr vMYrnGWtoR150HWTqaQwwEzPhYD u7L6CpTge1NXSqhBtyAB3i gCUtFTfuRe8hdMsskNlvQU2cNMT bslwke147PiZad4upFBJtfBEkLQ ymBVT9F54ls9X8GQSlTKHe KXR8gTQ0xX3kpGxaywnkgSHzoHk catPvdPcmUKrbTCbvG911YHQclM arMjUzeSw9G8MfXjp4MIBk xYwyEL7zwYEuBYpbSi7xtDuquRk pSW0tUBClqjdbm595UiEpy5msKD EilHXtSOfaIZP1W95qs1B9 QBDrPIQnRAS4qWT3yH5nbLtroxk gbGVmdDsgdmVydGljYWwtYWxpZ2 46IHRvcDsnPlBhdGllbnQg GInhMXx4L8LnTczhaOM+FY51UKU mKD81xHLbpCWag4spsNv7KoCdPP SfDER0gDzkZYmvw1WuTVLa S83dcKBhr4U5JTCxrXvpfCHoTaS qbJN1bG1nIMgevxpub4icywljIv bqq4wikx39aZ33T50aHKxt CXLxISKfQIIxYFWvcCkbiv1qxQ5 wIi8+RRYqaDR3oBL4oK2yCAGyGh A1JDjuA288RsZllDRjKdmf r8nvs5yqoOq8WoU0HRTqdjGahLm wWLM1b7XkTq28N86fXNghESRrMI YnINKvLDUehKwmlh9daZ6x Ii8+OHHqtPX0aHZ0hH4qZhAyGfU 9UWcgY011IkAkaXGcJymvT06sI8 JvdXA+CGSrBjy6BHTczTgz TL6gsJBhAQypNl1pFGS4HxGgAcU uFRqvI3HrRUNpbmpuscogzZC2OU PoRXDozX50Ra3qsBwwCOCx gBXUmG8csraem1hvhrpwIsFtEBP cUCq4MMk7GXUgaSahSnDjHSR1Wj L3OCB1fJMqkI7ciUxkifdi tK2lU9EeVTTlvuchAo74bC7bLuG oCmP9NVyjRmq+P19MJydwOUYLPL yZJXx2C9XrQkk4LWKpcAhc TJ8faUWcHItlTm2qdYdphHvmMZ1 bSSDxeivzQEEeqT6rDVFwaHKiyL bfCW1eZKXurtife432KfDv NRG0BDAkcMXtT9LblH6uRqAdXDQ zUPXuM2RvbSMcYUcwI772LNmqId D6UZJbnqTbQ8NbKARriBzn PvR0z1W4Rf8qHw4jRa5lKUW6BX0 2EZ73mZTyt0T7gWZ5V1BjCLDvye niejwbyFK5OGDmVKGxiQ82 vVVtPFogKz4xs1J4w028FIYkIIN sbP24Rj8xvKddVJKaxMNBmQ5aez fje7qbyngkIkFxQUDnFCi2 ISg4YVAssLuaLxInHQH3VjG8XMA 4yQKlwB9lmZihijhszC6gJsk+Nj naHDVjhfC1X1WtGva7JJGg yYvrTH9ypTFaUKpwQh2dyGhpvKj gEU4jBGWcglgvBNTycR2uFTHthS LcnYwoCU6aBUNyxxwyo188 PzPxVUA6PIOkwJVjH3XfoI9iQcO oKVOhUBQsQ7KawXXgNVkjJ136KV wmRpU2JOJoivUaY9OnHLLl kYbqIeR2w5M2Ve7KBP4HGYX1Q6J iBxa1ITZioGzvMR8ocOPmCWseNx 1hiGbneOebQC6eOLNtucpz EBAvoY3uLSKyxTQpyPptMR9kDEI soyxec845JtTrNXJ8UANvwNBxC9 QkhV8wKbIgQPPlRUCsZ9Qk bKCyGFhlU315DGzwWxL4WDTrdlO tR5GvOXDjuEdnZrF6k1A7Vx4LOz NlcnZhdGlvbjwvdGQ+PC90 ev62X5AqZkhuIfr8NCOsCXI9uHM 0zE6yYDJbYJubh3D4jIJ5B4Gkcz Ezti9jc6fkRFPyHEnkF80l xZFrq6P9IXAyzUC7DZLvdZxzYdM wsO99Rqj+YWBhpQfvd1IrXdiba6 orm2dixVl6VuHvHSYhrrGh xFblZPN0y6IwOa80R98eUBvnNLB cTMLwTWEfOCRmdIyhkt1cqK1nZw 8+PMSwbCL1wFS5wW4xJfRt HhE9WGlnS929EnAyzMGpHqngk0p le3wniMd8CsVwNMMlyrIinDyhBC Y4p4DsPp64T5JpwMbgb9Tl Aeg3xb70tVQfh2I7gMI8T3BwGVL lvpzvcOPxoHorRB4eNIRfncfzTL GlnB3sSOLqH4i9QcZxVmD9 RZlsS9MomtN1KHTlfXCaKGGxfPK DwW7xyptnv7fkhqreYaHfYWEqRD w8PAg4IFUdrZyfUmUhQTB2 UrG3IVW8rMTnsB8xqSwprrnvdM1 wOyc+ZYv8u6yekABlNF8ttHY6LU 60BX78dGQlb8L8dND9A1Dn QHBjkhhiclgaqPY8SIVkRYOuqI9 9Bs1ohZltTf6cOIUuXSC9ZTQtpZ NmP6BpqL2fFfEpNBBiZCRc E2HtdJYkXNteI711YWmxSeC3FGA xsuBeC7SyXCBbaGcqZvS1s6A7Xm 6KPG79RT78QV67hSVje4N0 tSH2S1YjLVIthmgnflgrqBQ0JWK vDOXicZ23Qv1yjGcvVn9aFDWeTO P8DHOupDHmM6VplL9dNpOz RVYwPPTpT2YdxIPaTQysG072EWq bTaZ6WOQywaMlV3JpAGCtbUdhAp I3e6E8Zz4EHu18WN40ER27 fWKng1R4iGY9M9UoNWNmgimwmaj xkDU8OAAdOISxcY28Nx1veYayQw 8rSFZfWJD6IYAjzWCkA8Mz bK3lWcRwHYBaWDWtZ1AtaPVxEXg rQ323WXfpCzN5YATfzrOaV7HiYB BivGsaImX3o0T3Bx4UEDce lrm7F2WtIfvkpLN+ZO60SBGqHM9 7ySLifXTlt3artWm4PdIsBEGhDL Z3xRbsXSevw6PxITAvF22f bGF (more content not included)... [facility] Consent Formson 02-09-2023 Consent Forms [id number][facility] Note on 02-09-2023 Consultation/Speci alist Note [id number]#[facility]/Speci alist Note [id number]#[facility] Dis[facility] Instructionson Discharge Instructions [id number]#[address] [place] [address] Provider Orderson 02-09-2023 Provider Orders [id number]#100[place] Provider Orders [id number]#[address] Consent Formson 02-06-2023 Consent Forms [id number]#[address] Inpatient Patient Summaryon 02-06-2023 [place]patient [place] [address] Patient Discharge Instructions Name: MARTHA DALEY : 1955 Patient Address: [address] [place] [address] Primary Care Provider: Name: Román Feliz MD After you are discharged if you find you have any questions, please, call [phone] ext [phone] to speak to a nurse. The Pharmacy at [facility] is open Thursday through Thursday from 9A to 6P and Thursday and Thursday from 9A to 5P Discharge Diagnosis: 1:Osteoarthritis Prescription Information: If you have been given a prescription for narcotics, seek immediate medical attention if you have any difficulty breathing or any sudden status changes such as confusion and sleepiness. If you or anyone you know is experiencing suicidal thoughts, mental health, alcohol and/or drug addiction problems; contact the Mental Health & Recovery [facility] 10/11 Crisis Hotline -Text 3OMUE ii 977025. If you received any narcotics, sedation, or any other medication that causes drowsiness for the next 24 hours, unless otherwise directed: ? Do not drive a car. ? Do not operate machinery such as power tools, lawn mowers, drills, sewing machines, or stoves ? Avoid alcoholic beverages and drugs for allergies, nerves, or sleep ? Do not make important personal or business decisions or sign any legal documents [facility] would like to thank you for allowing us to assist you with your healthcare needs. The following includes patient education materials and information regarding your injury/illness. MARTHA DALEY has been given the following list of follow-up instructions, prescriptions, and patient education materials: Follow-up Instructions With: Address: When: Vanesa Rodriguez DO [address] [place] [address] Within 1 to 2 weeks Medications During the course of your visit, your medication list was updated with the most current information. The details of those changes are reflected below: [facility] [address], [place] [id number], [phone] oxyCODONE (oxyCODONE 5 mg oral tablet) 1 tab(s) Oral Every 8 hours as needed Pain - Moderate. Refills: 0. Other Medications acetaminophen (acetaminophen 500 mg oral tablet) 2 tab(s) Oral Every 6 hours as needed Pain - Mild. ascorbic acid (Vitamin C 500 mg oral tablet) 1 tab(s) Oral 2 times a day. calcium carbonate (calcium (as carbonate) 500 mg oral tablet) Oral 2 times a day. docusate (Colace 100 mg oral capsule) 1 cap(s) Oral 2 times a day. Medications That Were Updated - Follow Below Instructions [facility] [address], [place] [id number], [phone] Updated: cholecalciferol (Vitamin D3 5000 intl units oral capsule) 1 cap(s) Oral every day. with food. Refills: 0. Medications to Continue That Have Not Changed Other Medications apixaban (Eliquis 5 mg oral tablet) 1 tab(s) Oral 2 times a day. aspirin (aspirin 81 mg oral delayed release tablet) 1 tab(s) Oral every day. atorvastatin (atorvastatin 10 mg oral tablet) 1 tab(s) Oral every day. busPIRone (busPIRone 5 mg oral tablet) 1 tab(s) Oral 3 times a day. celecoxib (celecoxib 400 mg oral capsule) 1 cap(s) Oral every day. ferrous sulfate (ferrous sulfate 325 mg (65 mg elemental iron) oral delayed release tablet) 1 tab(s) Oral every day. fluticasone nasal (fluticasone 50 mcg/inh nasal spray) 1 spray(s) Both Nostrils 2 times a day. metoprolol (Lopressor 25 mg oral tablet) 1 tab(s) Oral 2 times a day. multivitamin (Multivitamin, generic) 1 tab(s) Oral every day. OLANZapine (OLANZapine 5 mg oral tablet) 1 tab(s) Oral every day. pregabalin (pregabalin 50 mg oral capsule) 1 cap(s) Oral 2 times a day. Template Non-Formulary (lutein, zeaxanthis and omega 3) 1 tab(s) Oral every day. It is important to always keep an active list of medications available so that you can share with other providers and manage your medications appropriately. As an additional courtesy, we are also providing you with your final active medications list that you can keep with you. acetaminophen (acetaminophen 500 mg oral tablet) 2 tab(s) Oral Every 6 hours as needed Pain - Mild. apixaban (Eliquis 5 mg oral tablet) 1 tab(s) Oral 2 times a day. ascorbic acid (Vitamin C 500 mg oral tablet) 1 tab(s) Oral 2 times a day. aspirin (aspirin 81 mg oral delayed release tablet) 1 tab(s) Oral every day. atorvastatin (atorvastatin 10 mg oral tablet) 1 tab(s) Oral every day. busPIRone (busPIRone 5 mg oral tablet) 1 tab(s) Oral 3 times a day. calcium carbonate (calcium (as carbonate) 500 mg oral tablet) Oral 2 times a day. celecoxib (celecoxib 400 mg oral capsule) 1 cap(s) Oral every day. cholecalciferol (Vitamin D3 5000 intl units oral capsule) 1 cap(s) Oral every day. with food. Refills: 0. docusate (Colace 100 mg oral capsule) 1 cap(s) (more content not included)... [facility] Nutrition Noteon 02-06-2023 Nutrition Note Pt admitted under [facility] bed/TCU program yesterday; reports she is ready to go home today. PT/OT noting significant improvement in the last few days. Will monitor need for full Swing bed assessment if POC changes. [facility] Telemetry Stripson 3 Telemetry Strips [id number]#1.00OTGTIFF [facility] Telemetry Strips [id number]#1.00OTGTIFF [facility] Progress Note - Nurseon 01-18 Progress Note - Nurse Pt. denies RS need at present. Reports no b/m in 3 to 4 days but feels pressure. Denies pain med need for right knee. Pt. able to get out of bed per self, gate steady walking to the bathroom with a walker. Polar care refreshed. Pt. up in a chair for breakfast. [Electronically Signed on: 02/05/2023 13:20 EDT] Clay Curtis RN [Verified on: 02/05/2023 13:20 EDT] Clay Curtis RN [facility] Telemetry Stripson Telemetry Strips [id number]#1.00OTGTIFF [facility] .Auto Diff 1on 02-04-2023 Auto [place] % 14 % High -12 [facility] Comment on above: Performed By: #### 1 [id number] #### [facility] (DEFAULT) [address] [place] [address] Baso Abs# 0.0 x10 Normal 0.0-0.2 [facility] Comment on above: Performed By: #### 1 [id number] #### [facility] (DEFAULT) [address] [place] [address] Basophils/100 WBC (Bld) 0.4 % Normal 0.2-2.0 [facility] Comment on above: Performed By: #### 1 [id number] #### [facility] (DEFAULT) [address] [place] [address] 32773 Eos Abs# 0.1 x10 Normal 0.0-0.4 [facility] Comment on above: Performed By: #### 1 [id number] #### [facility] (DEFAULT) [address] [place] [address] Eosinophils/100 WBC (Bld) 1.0 % Normal 0.9-4.0 [facility] Comment on above: Performed By: #### 1 [id number], [id number], [id number] #### [facility] (DEFAULT) [address] [place] [address] 19065 Lymph Abs# 1.8 x10 Normal 1.3-2.9 [facility] Comment on above: Performed By: #### 1 [id number], [id number], [id number] #### [facility] (DEFAULT) [address] [place] [address] 59710 Lymphocytes/100 WBC (Bld) 21 % Normal 14-48 [facility] Comment on above: Performed By: #### 1 [id number], [id number], [id number] #### [facility] (DEFAULT) [address] [place] [address] 17564 Candler Abs# 1.2 x10 High 0.0-0.8 [facility] Comment on above: Performed By: #### 1 [id number], [id number], [id number] #### [facility] (DEFAULT) [address] [place] [address] 28824 Neut Abs# 5.4 x10 Normal 1.5-9.2 [facility] Comment on above: Performed By: #### 1 [id number], [id number], [id number] #### [facility] (DEFAULT) [address] [place] [address] 37168 Neutrophils/100 WBC (Bld) 64 % Normal 44-88 [facility] Comment on above: Performed By: #### 1 [id number], [id number], [id number] #### [facility] (DEFAULT) [address] [place] [address]409 [facility] Standardon 02-04-2023 eGFR Non AA >60 Invalid Interpretation Code [facility] Comment on above: Performed By: #### 1 [id number], [id number], [id number] ####[facility] (DEFAULT)[address] [place] [address] 45358 eGFR AA >60 Invalid Interpretation Code [facility] Comment on above: Performed By: #### 1 [id number], [id number], [id number] ####[facility] (DEFAULT)[address] [place] [address] 91848 Anion gap [Moles/Vol] 10.6 mmol/L Normal 5.0-19.0 [facility] Comment on above: Performed By: #### 1 [id number], [id number], [id number] ####[facility] (DEFAULT)[address] [place] [address] 26108 Calcium [Mass/Vol] 9.3 mg/dL Normal 8.9-10.3 [facility] Comment on above: Performed By: #### 1 [id number], [id number], [id number] ####[facility] (DEFAULT)[address] [place] [address] 76163 Chloride [Moles/Vol] 101 mmol/L Normal 101-111 [facility] Comment on above: Performed By: #### 1 [id number], [id number], [id number] ####[facility] (DEFAULT)[address] [place] [address] 88459 CO2 [Moles/Vol] 31 mmol/L Normal 21-32 [facility] Comment on above: Performed By: #### 1 [id number], [id number], [id number] ####[facility] (DEFAULT)[address] [place] [address] 94428 Creatinine [Mass/Vol] 0.76 mg/dL Normal 0.60-1.30 [facility] Comment on above: Performed By: #### 1 [id number], [id number], [id number] ####[facility] (DEFAULT)[address] [place] [address] 76943 Glucose [Mass/Vol] 106.0 mg/dL Normal 74.0-118.0 [facility] Comment on above: Performed By: #### 1 [id number], [id number], [id number] ####[facility] (DEFAULT)[address] [place] [address] Osmolality 279 mOsm/L Invalid Interpretation Code [facility] Comment on above: Performed By: #### 1 [id number], [id number], [id number] ####[facility] (DEFAULT)[address] [place] [address] 02166 Potassium [Moles/Vol] 3.6 mmol/L Normal 3.6-5.1 [facility] Comment on above: Performed By: #### 1 [id number], [id number], [id number] ####[facility] (DEFAULT)[address] [place] [address] Sodium [Moles/Vol] 139.0 mmol/L Normal 136.0-144.0 [facility] Comment on above: Performed By: #### 1 [id number], [id number], [id number] ####[facility] (DEFAULT)[address] [place] [address] Urea nitrogen [Mass/Vol] 15 mg/dL Normal 8-26 [facility] Comment on above: Performed By: #### 1 [id number], [id number], [id number] ####[facility] (DEFAULT)[address] [place] [address] Urea nitrogen/Creatinin e [Mass ratio] 19.7 mg/mg High 4.6-16.2 [facility] Comment on above: Performed By: #### 1 [id number], [id number], [id number] ####[facility] (DEFAULT)[address] [place] [address] 66561 CBC w/ Auto Diffon 3 Erythrocyte distribution width (RBC) [Ratio] 13.3 % Normal 11.5-15.0 [facility] Comment on above: Performed By: #### 1 [id number], [id number], [id number] #### [facility] (DEFAULT) [address] [place] [address] Hematocrit (Bld) [Volume fraction] 32.7 % Low 33.7-40.4 [facility] Comment on above: Performed By: #### 1 [id number], [id number], [id number] #### [facility] (DEFAULT) [address] [place] [address] 60217 Hemoglobin (Bld) [Mass/Vol] 11.0 g/dL Low 11.3-15.9 [facility] Comment on above: Performed By: #### 1 [id number], [id number], [id number] #### [facility] (DEFAULT) [address] [place] [address] 64749 MCH (RBC) [Entitic mass] 31 pg Normal 24-34 [facility] Comment on above: Performed By: #### 1 [id number], [id number], [id number] #### [facility] (DEFAULT) [address] [place] [address] MCHC (RBC) [Mass/Vol] 34 g/dL Normal 26-37 [facility] Comment on above: Performed By: #### 1 [id number], [id number], [id number] #### [facility] (DEFAULT) [address] [place] [address] 64221 MCV (RBC) [Entitic vol] 93 fL Normal 81-100 [facility] Comment on above: Performed By: #### 1 [id number], [id number], 2958494 #### [facility] (DEFAULT) [address] [place] [address] 95700 Platelet 159 x10 Normal 138-427 [facility] Comment on above: Performed By: #### 1 [id number], [id number], 3005075 #### [facility] (DEFAULT) [address] [place] [address] 34148 Platelet mean volume (Bld) [Entitic vol] 7.6 fL Normal 6.3-10.2 [facility] Comment on above: Performed By: #### 1 [id number], [id number], 1070461 #### [facility] (DEFAULT) [address] [place] [address] 50353 RBC 3.52 x10 Low 3.70-5.30 [facility] Comment on above: Performed By: #### 1 [id number], 23309294, 4700729 #### [facility] (DEFAULT) [address] [place] [address] WBC 8.4 x10 Normal 3.5-10.5 [facility] Comment on above: Performed By: #### 1 [id number], [id number], 6228820 #### [facility] (DEFAULT) [address] [place] [address] Man Diff? Auto Invalid Interpretation Code [facility] Comment on above: Performed By: #### 1 [id number], 60488284, 5984193 #### [facility] (DEFAULT) [address] [place] [address] Nutrition Noteon 02-04-2023 Nutrition Note Per intake records, Pt eating 50-95% of meals, drinking supplements. Pt reporting fatigue, labs checked, H/H slightly low but expected post op. Last BM 02/01; bowel meds in place. No new rec'd. Will continue to monitor. [facility] Progress Note - Nurseon 01-18 Progress Note - Nurse Pt. up in chair. Saul wrap intact to right knee. Pt. denies pain med need. Polar care in place. [Electronically Signed on: 02/04/2023 18:31 EDT] Clay Curtis RN [Verified on: 02/04/2023 18:31 EDT] Clay Curtis RN [facility] Telemetry Stripson Telemetry Strips [id number] [facility] Consultation/Specialist Note on 02-03-2023 Consultation/Speci ali Note Patient: MARTHA DALEY Age: 67 years Sex: FEMALE : 1955 Associated Diagnoses: None Author: DOMI PEREZ Basic Information 1 day s/p RT TKA (DOS 02/02/23) Subjective Pt is doing well, pain 4/10, she is sitting up in bed. She is looking forward to going home today. Review of Systems denies chest pain, shortness of breath, and nausea Health Status Allergies: Allergic Reactions (All) Severity Not Documented Contrast Dye- Hives. Latex- Rash. Penicillin- Hives. Tape- Rash. Objective dressing clean dry and intact, epc cuffs on, mindi hose on bilaterally, kryo cuff on Impression and Plan d/c home once pain well controlled and has been up therapy at least twice, f/U in office within 10-14 days s/p surgery [Electronically Signed on: 02/03/2023 08:19 EDT] SHANEKABAKARI DOMI [Verified on: 02/03/2023 08:19 EDT] SHANEKABAKARI DOMI [facility] MAGR Postoperative Recordon 02-03-2023 MAGR Postoperative Record MAGR Phase II Record Summary Primary Physician: Vanesa Rodriguez DO Finalized Date/Time: 02/03/23 09:04:43 Pt. Name: MARTHA DALEY/Sex: 1955 FEMALE Med Rec #: [id number] Physician: Vanesa Rodriguez DO Financial #: [id number] Pt. Type: O Room/Bed: [facility]/1 Admit/Disch: 02/02/23 05:53:28 - Institution: Phase II Case Times MAGR Pre-Care Text: Patient is free from s/s of injury. Patient remains free from compromised physical state related to surgery or anesthesia. Patient comfort maintained. Patient/family verbalize understanding of discharge instructions. Entry 1 In PACU II 02/02/23 10:41:00 Discharge from PACU 02/02/23 11:30:00 II Last Modified By: Yaneth Francis RN 02/03/23 09:04:41 Post-Care Text: The patient remains free from s/s of injury. Patient's vital signs stable, circulation maintained, return to preop mental and physical status, opsite/dressing intact, minimal or absent nausea and vomiting, tolerates po intake. Patient verbalizes adequate pain control. Patient/family express understanding of discharge instructions. Finalized By: Yaneth Francis RN Document Signatures Signed By: Yaneth Francis RN 02/03/23 09:04 [facility] Anesthesia Noteon 02-02-2023 Anesthesia Note Patient: DEBORAH DALEY Age: 67 years Sex: FEMALE : 1955 Associated Diagnoses: None Author: Mikey Tobin MD Postoperative Information Post Operative Note Health Status Allergies: Allergic Reactions (All) Severity Not Documented Contrast Dye- Hives. Latex- Rash. Penicillin- Hives. Tape- Rash. Problem list: All Problems (Selected) Atrial fibrillation / SNOMED CT 91657438 / Confirmed Depression / SNOMED CT 88308357 / Confirmed Fibromyalgia / SNOMED CT 634904803 / Confirmed Hiatal hernia / SNOMED CT 888601134 / Confirmed IBS (irritable bowel syndrome) / SNOMED CT 63853409 / Confirmed Physical Examination Vital Signs (last 24 hrs) Last Charted Heart Rate Peripheral 70 bpm (FEB 02 10:45) Resp Rate 16 br/min (FEB 02 10:45) SBP 119 mmHg (FEB 02 10:45) DBP 70 mmHg (FEB 02 10:45) Assessment Anesthetic outcome No anesthetic complications noted. Plan Transfer/ Discharge: To nursing unit, Patient can be discharged from PACU when criteria met. Condition good. pt did well. pain well controlled. no n/v. hd stable. resp and neuro status at baseline. volume status adequate [Electronically Signed on: 02/02/2023 13:32 EDT] Mikey Tobin MD [Verified on: 02/02/2023 13:32 EDT] Mikey Tobin MD [facility] Anesthesia Note Patient: DEBORAH DALEY Age: 67 years Sex: FEMALE : 1955 Associated Diagnoses: None Author: Mikey Tobin MD Preoperative Information Anesthesia history: Patient history: No difficult intubation, No malignant hyperthermia. Family history: No malignant hyperthermia. Review of Systems Constitutional: Negative. Respiratory: Negative, No shortness of breath. Cardiovascular: Negative, No chest pain. Gastrointestinal: No heartburn. Health Status Allergies: Allergic Reactions (All) Severity Not Documented Contrast Dye- Hives. Latex- Rash. Penicillin- Hives. Tape- Rash. Current medications: Home Medications (12) Active aspirin 81 mg oral delayed release tablet 81 mg = 1 tab(s), PO, Daily atorvastatin 10 mg oral tablet buPROPion 100 mg/12 hours (SR) oral tablet, extended release 100 mg = 1 tab(s), PO, Daily celecoxib 400 mg oral capsule 400 mg = 1 cap(s), PO, Daily Eliquis 5 mg oral tablet ferrous sulfate 325 mg (65 mg elemental iron) oral delayed release tablet 325 mg = 1 tab(s), PO, Daily fluticasone 50 mcg/inh nasal spray Lopressor 25 mg oral tablet 1 tab(s), PO, BID lutein, zeaxanthis and omega 3 1 tab(s), PO, Daily Multivitamin, generic 1 tab(s), PO, Daily OLANZapine 5 mg oral tablet Vitamin D3 5000 intl units oral capsule 5,000 International_Unit = 1 cap(s), PO, Daily Problem list (past medical history): All Problems Atrial fibrillation / SNOMED CT 39640606 / Confirmed Depression / SNOMED CT 64487577 / Confirmed Fibromyalgia / SNOMED CT 081746959 / Confirmed Hiatal hernia / SNOMED CT 835256136 / Confirmed IBS (irritable bowel syndrome) / SNOMED CT 22923845 / Confirmed Resolved: Kidney stone / SNOMED CT 229209261 Histories Family History: CA - Cancer of colon Father Hypertension Father Procedure history: Hip arthroplasty ([id number]). Comments: 01/08/2023 14:43 EDT - Elizabeth Champion RN both sides Gallbladder ([id number]). Comments: 02/10/2019 9:21 Jaki Sanchez RN replacement Hysterectomy ([id number]). Comments: 02/10/2019 9:23 Jkai Sanchez RN partial, still has ovaries Social History Electronic Cigarette/Vaping Assessment Electronic Cigarette Use: Never. Electronic Cigarette Use: Never. Alcohol Assessment Use: Never. Tobacco Assessment Never tobacco user Tobacco Use:. Former smoker, quit more than 30 days ago Tobacco Use:. Substance Abuse Assessment Substance use: Never. . Social & Psychosocial Habits Alcohol 02/10/2019 Alcohol Use: Never Substance Use 02/10/2019 Substance use: Never Tobacco 02/10/2019 Smoking tobacco use: Former smoker, quit more 01/08/2023 Smoking tobacco use: Never tobacco user Electronic Cigarette/Vaping 02/10/2019 Electronic Cigarette Use: Never 01/08/2023 Electronic Cigarette Use: Never . Physical Examination VS/Measurements Vital Signs (last 24 hrs) Last Charted Heart Rate Peripheral 67 bpm (FEB 02 06:05) Resp Rate 16 br/min (FEB 02 06:05) SBP 122 mmHg (FEB 02 06:18) DBP 74 mmHg (FEB 02:18) Review / Management Laboratory Results Plan [place] [employer]hesi[employer]#(ASA) physical status classification: Class III. Anesthetic Preoperative Plan Anesthesia: General. , Regional adductor canal block. Anesthetic plan, risks, benefits, and alternatives discussed with the patient and/or family. Patient verbalized understanding. [Electronically Signed on: 02/02/2023 07:13 EDT] Mikey Tobin MD [Verified on: 02/02/2023 07:13 EDT] Mikey Tobin MD [facility] Inpatient Patient Summaryon 02-02-2023 Inpatient Patient Summary [facility] [address] [place] [address] Patient Discharge Instructions Name: MARTHA DALEY : 1955 Patient Address: [address] [place] [place] [address] Primary Care Provider: Name: Tray GREGG, Román Carpio After you are discharged if you find you have any questions, please, call [phone] ext [phone] to speak to a nurse. Discharge Diagnosis: Primary osteoarthritis of right knee Prescription Information: If you have been given a prescription for narcotics, seek immediate medical attention if you have any difficulty breathing or any sudden status changes such as confusion and sleepiness. If you or anyone you know is experiencing suicidal thoughts, mental health, alcohol and/or drug addiction problems; contact the [facility] 10/11 Crisis Hotline -Text 4HFRU to 861503. If you received any narcotics, sedation, or any other medication that causes drowsiness for the next 24 hours, unless otherwise directed: ? Do not drive a car. ? Do not operate machinery such as power tools, lawn mowers, drills, sewing machines, or stoves ? Avoid alcoholic beverages and drugs for allergies, nerves, or sleep ? Do not make important personal or business decisions or sign any legal documents [facility] would like to thank you for allowing us to assist you with your healthcare needs. The following includes patient education materials and information regarding your injury/illness. MARTHA DALEY has been given the following list of follow-up instructions, prescriptions, and patient education materials: Follow-up Instructions With: Address: When: Vanesa Atkins[address], [address] [place] [address] Business (1) 02/10/2023 11:15 AM Medications During the course of your visit, your medication list was updated with the most current information. The details of those changes are reflected below: Medications to Continue That Have Not Changed Other Medications apixaban (Eliquis 5 mg oral tablet) TAKE ONE TABLET BY MOUTH TWICE A DAY. aspirin (aspirin 81 mg oral delayed release tablet) 1 tab(s) Oral every day. atorvastatin (atorvastatin 10 mg oral tablet) TAKE ONE TABLET BY MOUTH DAILY. buPROPion (buPROPion 100 mg/12 hours (SR) oral tablet, extended release) 1 tab(s) Oral every day. celecoxib (celecoxib 400 mg oral capsule) 1 cap(s) Oral every day. cholecalciferol (Vitamin D3 5000 intl units oral capsule) 1 cap(s) Oral every day. with food. ferrous sulfate (ferrous sulfate 325 mg (65 mg elemental iron) oral delayed release tablet) 1 tab(s) Oral every day. fluticasone nasal (fluticasone 50 mcg/inh nasal spray) INSTILL 1 SPRAY IN EACH NOSTRIL TWICE A DAY. metoprolol (Lopressor 25 mg oral tablet) 1 tab(s) Oral 2 times a day. multivitamin (Multivitamin, generic) 1 tab(s) Oral every day. OLANZapine (OLANZapine 5 mg oral tablet) TAKE ONE TABLET BY MOUTH DAILY. Template Non-Formulary (lutein, zeaxanthis and omega 3) 1 tab(s) Oral every day. It is important to always keep an active list of medications available so that you can share with other providers and manage your medications appropriately. As an additional courtesy, we are also providing you with your final active medications list that you can keep with you. apixaban (Eliquis 5 mg oral tablet) TAKE ONE TABLET BY MOUTH TWICE A DAY. aspirin (aspirin 81 mg oral delayed release tablet) 1 tab(s) Oral every day. atorvastatin (atorvastatin 10 mg oral tablet) TAKE ONE TABLET BY MOUTH DAILY. buPROPion (buPROPion 100 mg/12 hours (SR) oral tablet, extended release) 1 tab(s) Oral every day. celecoxib (celecoxib 400 mg oral capsule) 1 cap(s) Oral every day. cholecalciferol (Vitamin D3 5000 intl units oral capsule) 1 cap(s) Oral every day. with food. ferrous sulfate (ferrous sulfate 325 mg (65 mg elemental iron) oral delayed release tablet) 1 tab(s) Oral every day. fluticasone nasal (fluticasone 50 mcg/inh nasal spray) INSTILL 1 SPRAY IN EACH NOSTRIL TWICE A DAY. metoprolol (Lopressor 25 mg oral tablet) 1 tab(s) Oral 2 times a day. multivitamin (Multivitamin, generic) 1 tab(s) Oral every day. OLANZapine (OLANZapine 5 mg oral tablet) TAKE ONE TABLET BY MOUTH DAILY. Template Non-Formulary (lutein, zeaxanthis and omega 3) 1 tab(s) Oral every day. Take only the medications listed above. Contact your doctor prior to taking any medications not on this list. Diet & Activity Patient Activity Level: As Tolerated Patient Diet: Regular Patient Activity Restrictions: Comment: Patient education materials, if any, will display below Knee Rehabilitation in the Home After knee surgery, it is important to follow instructions from your health care provider about rehabilitation or rehab. It is important to design a program that is safe and effective for you. Your health care provider and rehabilitation therapist will work with yo (more content not included)... [facility] MAGR Intraoperative Recordon 02-02-2023 MAGR Intraoperative Record MAGR Intra-Op Record Summary Primary Physician: Vanesa Rodriguez DO Finalized Date/Time: 02/02/23 10:07:57 Pt. Name: MARTHA DALEY./Sex: 1955 FEMALE Med Rec #: [id number] Physician: Vanesa Rodriguez DO Financial #: [id number] Pt. Type: D Room/Bed: [facility] Admit/Disch: 02/02/23 05:53:28 - Institution: Case Times MAGR Entry 1 Patient In Room Time 02/02/23 07:29:00 Out Room Time 02/02/23 09:54:00 Anesthesia Start Time 02/02/23 07:31:00 Stop Time 02/02/23 09:53:00 Surgery Start Time 02/02/23 07:58:00 Stop Time 02/02/23 09:47:00 Last Modified By: Shruthi Gorman RN 02/02/23 10:07:52 Case Attendance MAGR Entry 1 Entry 2 Entry 3 Case Attendee Vanesa Rodriguez John M MD Kokinda, Diane RN Andrew DO Role Performed Surgeon - Primary Anesthesiologist of Lunchroom Operator Record Time In 02/02/23 07:50:00 02/02/23 07:29:00 02/02/23 07:29:00 Time Out 02/02/23 09:22:00 02/02/23 09:54:00 02/02/23 09:54:00 Procedure Arthroplasty Knee Arthroplasty Knee Arthroplasty Knee Total(Right) Total(Right) Total(Right) Last Modified By: Shruthi Gorman RN, Diane RN Kokinda, Diane RN 02/02/23 10:07:44 02/02/23 10:07:44 02/02/23 10:07:44 Entry 4 Entry 5 Entry 6 Case Attendee Adrianna Sam CST, Brittany E CSFA Rufino FINANCIAL LEGAL ASSISTANTKandy CST FINANCIAL LEGAL ASSISTANT CSFA Role Performed Scrub Personnel Shade Cutter Shade Cutter Time In 02/02/23 07:29:00 02/02/23 07:29:00 02/02/23 07:29:00 Time Out 02/02/23 09:54:00 02/02/23 09:54:00 02/02/23 09:54:00 Procedure Arthroplasty Knee Arthroplasty Knee Arthroplasty Knee Total(Right) Total(Right) Total(Right) Last Modified By: Shruthi Gorman RN, Diane RN Kokinda, Diane RN 02/02/23 10:07:44 02/02/23 10:07:44 02/02/23 10:07:44 General Comments: EYAD BERMUDEZ-ARTHREX REP Surgical Procedures MAGR Pre-Care Text: A.20 Verifies operative procedure, surgical site, and laterality Im.150 Develops individualized plan of care Entry 1 Procedure Arthroplasty Knee Total Primary Procedure Yes Primary Surgeon Vanesa Rodriguez DO Surgeon Comment RIGHT TOTAL KNEE Start 02/02/23 07:58:00 Stop 02/02/23 09:47:00 Anesthesia Type General Surgical Service Orthopedics Wound Class Clean Technique Details Closure Technique Primary Entire procedure No was performed via laparoscope or robotic assistance Last Modified By: Shruthi Gorman RN 02/02/23 10:07:48 Post-Care Text: O.730 The patient's care is consistent with the individualized perioperative plan of care General Case Data MAGR Pre-Care Text: A.350.1 Classifies surgical wound Entry 1 Case Information OR MAGR OR 05 Case Level Level 5 Wound Class Clean Specialty Orthopedics ASA Class 3 Diagnosis Preop Diagnosis DJD Postop Same As Preop Yes Postop Diagnosis DJD Blunt or No Is the procedure No penetrating injury considered occured prior to Emergent/Urgent? the start of the procedure: Last Modified By: Shruthi Gorman RN 02/02/23 08:02:02 Post-Care Text: O.760 Patient receives consistent and comparable care regardless of the setting Time Out MAGR Entry 1 Time out date/time 02/02/23 07:57:00 All team members Yes have introduced themselves by name and role Surgeon, Yes Surgeon reviews Yes anesthesia, nurse critical or confirm patient, unexpected steps, site, procedure operative duration, anticipated blood loss Anesthesia team Yes Nursing team Yes reviews any reviews sterility patient-specific (including concerns indicator results) and equipment issues/concerns Antibiotic Antibiotic Yes Administration Time 07:20 prophylaxis given within the last 60 minutes Last Modified By: Shruthi Gorman RN 02/02/23 08:02:23 Patient Positioning MAGR Pre-Care Text: A.280 Identifies baseline musculoskeletal status Im.40 Positions the patient Im.80 Applies safety devices Entry 1 Procedure Arthroplasty Knee Body Position Supine Total(Right) Left Arm Position Extended on padded arm Right Arm Position Extended on padded arm board board Left Leg Position Extended Right Leg Position Extended Feet Uncrossed? Yes Press Points Checked Yes Positioning Device Arm Boards, Arm Strap, Outcome Met (O.80) Yes Pillow, Safety Strap Last Modified By: Shruthi Gorman RN 02/02/23 08:02:31 Post-Care Text: E.290 Evaluates musculoskeletal status O.80 Patient is free from signs and symptoms of injury related to positioning Skin Prep MAGR Pre-Care Text: A.30 Verifies allergies Im.270 Performs skin preparation Im.270.1 Implements protective measures to prevent skin and tissue injury due to chemical sources Entry 1 Skin Prep Syntegrity Prep Agents (Im.270) 2% Chlorhexidine Prep By Shruthi Gorman RN Gluconate and 70% Isopropyl Alcohol Prep Area (Im.270) Knee, Leg lower, Foot Prep Area Details Right Skin Prep Agent Dry Yes Without Pooling Hair Removal Syntegrity Hair Removal Meth (more content not included)... [facility] MAGR Intraoperative Record MAGR Intra-Op Record Summary Primary Physician: Finalized Date/Time: 02/02/23 07:34:03 Pt. Name: MARTHA DALEY D.O.B./Sex: 1955 FEMALE Med Rec #: [id number] Physician: JenniferVanesa DO Financial #: [id number] Pt. Type: D Room/Bed: / Admit/Disch: 02/02/23 05:53:28 - Institution: Case Times MAGR Entry 1 Patient In Room Time 02/02/23 07:16:00 Out Room Time 02/02/23 07:27:00 Anesthesia Start Time 02/02/23 07:21:00 Stop Time 02/02/23 07:27:00 Surgery Start Time 02/02/23 07:25:00 Stop Time 02/02/23 07:26:00 Last Modified By: Sammie Holcomb RN 02/02/23 07:32:49 Case Attendance MAGR Entry 1 Entry 2 Entry 3 Case Attendee Mikey Tobin MD, Laura RN Draper, Lora RN Role Performed Anesthesiologist of Lunchroom Operator Lunchroom Operator Record Time In 02/02/23 07:16:00 02/02/23 07:16:00 02/02/23 07:16:00 Time Out 02/02/23 07:27:00 02/02/23 07:27:00 02/02/23 07:27:00 Procedure Adductor Canal Adductor Canal Adductor Canal Block(Right) Block(Right) Block(Right) Last Modified By: Sammie Holcomb RN, Lora RN Draper, Lora RN 02/02/23 07:32:41 02/02/23 07:32:41 02/02/23 07:32:41 Surgical Procedures MAGR Pre-Care Text: A.20 Verifies operative procedure, surgical site, and laterality Im.150 Develops individualized plan of care Entry 1 Procedure Adductor Canal Block Primary Procedure Yes Primary Surgeon Mikey Tobin MD Modifiers Right Surgeon Comment ADDUCTOR CANAL BLOCK Start 02/02/23 07:25:00 PRIOR TO RIGHT TOTAL KNEE Stop 02/02/23 07:26:00 Anesthesia Type Regional Block Surgical Service Anesthesia Wound Class Clean Technique Details Closure Technique N/A Entire procedure No was performed via laparoscope or robotic assistance Last Modified By: Sammie Holcomb RN 02/02/23 07:32:44 Post-Care Text: O.730 The patient's care is consistent with the individualized perioperative plan of care General Comments: Ultrasound machine used for procedure General Case Data MAGR Pre-Care Text: A.350.1 Classifies surgical wound Entry 1 Case Information OR MAGR Proc Room Case Level None Wound Class Clean Specialty Anesthesia ASA Class 3 Diagnosis Preop Diagnosis ADDUCTOR CANAL BLOCK Postop Same As Preop Yes PRIOR TO RIGHT TOTAL KNEE Postop Diagnosis ADDUCTOR CANAL BLOCK PRIOR TO RIGHT TOTAL KNEE Blunt or No Is the procedure No penetrating injury considered occured prior to Emergent/Urgent? the start of the procedure: Last Modified By: Sammie Holcomb RN 02/02/23 07:33:23 Post-Care Text: O.760 Patient receives consistent and comparable care regardless of the setting Time Out MAGR Entry 1 Time out date/time 02/02/23 07:20:00 All team members Yes have introduced themselves by name and role Surgeon, Yes Surgeon reviews Yes anesthesia, nurse critical or confirm patient, unexpected steps, site, procedure operative duration, anticipated blood loss Anesthesia team Yes Nursing team Yes reviews any reviews sterility patient-specific (including concerns indicator results) and equipment issues/concerns Antibiotic Antibiotic N/A prophylaxis given within the last 60 minutes Is essential Yes imaging displayed? Last Modified By: Sammie Holcomb RN 02/02/23 07:26:43 General Comments: Ultrasound machine used for procedure Patient Positioning MAGR Pre-Care Text: A.280 Identifies baseline musculoskeletal status Im.40 Positions the patient Im.80 Applies safety devices Entry 1 Procedure Adductor Canal Body Position Semi-Fowlers Block(Right) Left Arm Position Resting at Side Right Arm Position Resting at Side Left Leg Position Extended Right Leg Position Extended Feet Uncrossed? n/a Press Points Checked No Outcome Met (O.80) Yes Last Modified By: Sammie Holcomb RN 02/02/23 07:27:20 Post-Care Text: E.290 Evaluates musculoskeletal status O.80 Patient is free from signs and symptoms of injury related to positioning Skin Prep MAGR Pre-Care Text: A.30 Verifies allergies Im.270 Performs skin preparation Im.270.1 Implements protective measures to prevent skin and tissue injury due to chemical sources Entry 1 Skin Prep Syntegrity Prep Agents (Im.270) Chlorhexidine Gluconate Prep By Mikey Tobin MD and Alcohol Prep Area (Im.270) Thigh, Knee Prep Area Details Right Skin Prep Agent Dry Yes Without Pooling Hair Removal Syntegrity Hair Removal Methods No hair removal performed Outcome Met (O.100) Yes Last Modified By: Sammie Holcomb RN 02/02/23 07:31:59 Post-Care Text: E.10 Evaluates for signs and symptoms of physical injury to skin and tissue O.100 Patient is free from signs and symptoms of chemical injury Departure from OR MAGR Entry 1 Present on Depart N/A Via Stretcher Post-op Destination [place] Skin DFO Condition Warm Description Condition Dry Description Report Given To Shruthi Gorman RN Airway Maintenance Patient Status Stable Oxygen in Use? No (more content not included)... [facility] MAGR PACU Recordon 3 MAGR PACU Record MAGR PACU Record [facility] Primary Physician: Vanesa Rodriguez DO Finalized Date/Time: 02/02/23 10:46:43 Pt. Name: MARTHA DALEY/Sex: 1955 FEMALE Med Rec #: [id number] Physician: Vanesa Rodriguez DO Financial #: [id number] Pt. Type: D Room/Bed: [facility]/1 Admit/Disch: 02/02/23 05:53:28 - Institution: PACU Case Times MAGR Entry 1 In PACU I 02/02/23 09:55:00 Discharge from PACU 02/02/23 10:40:00 I Last Modified By: Jaki Craven RN 02/02/23 10:46:39 Finalized By: Jaki Craven RN Document Signatures Signed By: Jaki Craven RN 02/02/23 10:[facility] Preoperative Record MAGR Pre-Op Record Summary Primary Physician: Vanesa Rodriguez DO Finalized Date/Time: 02/02/23 07:37:58 Pt. Name: MARTHA DALEY/Sex: 1955 FEMALE Med Rec #: [id number] Physician: Vanesa Rodriguez DO Financial #: [id number] Pt. Type: D Room/Bed: / Admit/Disch: 02/02/23 05:53:28 - Institution: Pre-Op Case Times MAGR Pre-Care Text: Patient will be optimally prepared for surgery. Patient is free from s/s of injury. Provide information to patient/family related to plan of care. Verify patient allergies. Confirm identity and verify consent before the operative or invasive procedure. Entry 1 Patient Arrival Time 02/02/23 06:04:00 Preop Departure 02/02/23 07:27:00 Last Modified By: Sammie Holcomb RN 02/02/23 07:37:57 Post-Care Text: Patient is prepared mentally and physically and is ready for surgery. The patient remains free from s/s of injury. Patient/family express understanding of plan of care and participate in decisions affecting his or her perioperrative plan of care. Allergies documented appropriately. Patient identifiers and consent correct. General Comments: Reviewed for the next 24 hours not to do anything that requires concentration. Denies chest pain or illnessess. States at times shortness of breath. Goes in and out of A-fib. At this time, no shortness of breath. Denies pacemaker/defib. Deneis sleep apnea. Finalized By: Sammie Holcomb RN Document Signatures Signed By: Sammie Holcomb RN 02/02/23 07:37 [facility] Nutrition Noteon 02-02-2023 Nutrition Note Pt admitted for sche duled Rt total knee surgery. Placed on a Regular diet with usual post op vitamins/minerals and oral nutritional supplements in place. Pre-op testing wt at 83.6kg w/ no recent wts on file. Last wt from Feb at 81.4kg. Pre-op labs reviewed and wnl. Pt w/ hx of needing diet consistency changes in 2019 d/t poor dentition, will monitor need to adjust diet consistency if issues continue. Pt did not have any swallowing problems. Other than age greater than 65yr with surgery, Pt appears at low nutrition risk. Will monitor for changes in intake, wts, labs. [facility] Operative Report - Surgeon/P aishwarya 02-02-2023 Operative Report - Surgeon/Physician Preoperative diagnosis: Primary osteoarthritis right knee Postoperative diagnosis: Same Procedure: Right total knee arthroplasty Implants: DePuy attune cruciate retaining knee. Size 5 femur, size 5 tibia, 10 mm medial stabilized spacer, 35 mm patella. Surgeon: Rosita Rodriguez D.O. Anesthesia: General Indications for surgery: Continuous pain with loss of function and failure of conservative treatment Estimated blood loss: 200 Complications: None Findings: Tricompartmental osteoarthritis with ijvk-lt-jzzi in all 3 compartments. Procedure summary: After administration of general anesthesia the right knee is prepped and draped in usual fashion a timeout was taken. A tourniquet was not inflated during surgery. The medial parapatellar approach was utilized. The fat pad was excised and the patella was cut in line tended to tendon it sized out to 35 and was prepared with the peg drill and then covered with a protector The knee was placed in flexion and the step drill was inserted into the femur. The distal cutting guide was attached at 4 degrees and 9 mm. The cut was taken. Next the knee was dislocated and an extra medullary cutting guide was secured to the tibia. Referencing off the spine of the tibia cut was taken removing approximately 2 mm of bone medially and a centimeter laterally. The knee was placed in extension with a spacer block and a drop mk the collaterals were symmetrically balanced however the knee was slightly loose. The knee was placed back in flexion and a femoral sizer was attached with anterior reference it sized out to 5. Smooth pins were inserted and the sizer was removed and then a distal femoral cutting block was secured in place and the anterior and posterior cuts were taken followed by the posterior chamfer and lastly the anterior chamfer. Next a sulcus cut was taken. At this point trial components were attached and a size 5 femur and a size 5 tibia with a 10 mm spacer produced the best balance both in flexion and extension. The patella was tracking midline. The tibial tray was pinned in place and the remaining trial components removed. The tibia is prepared with a drill and a broach. At this point the tray was removed and bone was washed with pulse lavage while the cement was mixed on the back table. As soon as the cement was mixed it was immediately applied to the prosthesis. The tibial component was cemented into place followed by the femoral component and then a 10 mm medial stabilized spacer was clicked into place. The knee was placed in terminal extension. The protector was removed from the patella and the bone was washed with pulse lavage. The patella button was cemented into place and held clamped with the knee in extension and compression across the joint until the cement was completely hardened. The clamp was removed the knee was taken through range of motion the patella was tracking midline and the knee was balanced in flexion and extension. All remnants of cement were trimmed from the edge of the prosthesis and the joint was soaked in diluted Betadine. The capsule was closed with a #2 Ethibond suture in the superior medial corner and then 0 Vicryl throughout creating a watertight closure. The fat and subcutaneous layers were closed with 0 Vicryl and then skin clips superficially. Bacitracin Adaptic and sterile dressings were applied. [Electronically Signed on: 02/02/2023 09:34 EDT] Vanesa Rodriguez DO [Verified on: 02/02/2023 09:34 EDT] Vanesa Rodriguez DO [facility] Patient Handouton 02-02-2023 Patient Handout Orthopedics Knee Rehabilitation in the Home After knee surgery, it is important to follow instructions from your health care provider about rehabilitation or rehab. It is important to design a program that is safe and effective for you. Your health care provider and rehabilitation therapist will work with you to meet your specific abilities and needs. What are the benefits? Knee rehab can help: ? Strengthen your knee. ? Improve the flexibility and movement (range of motion) of your knee joint. ? Reduce swelling. ? Improve blood flow and prevent blood clots. How to do exercises at home Continue exercises at home that your health care provider or physical therapist instructed you to do in the hospital. Do not exercise in a pool until your incision has healed and your health care provider says that you can. Pool exercise is also called aquatic therapy. Before you exercise ? Take pain medicines, if told by your health care provider. Do not take the medicine if it makes you feel dizzy or sleepy. ? Do a warm-up activity, such as gentle walking or riding a stationary bike, as told by your health care provider. This warms up your muscles and helps to prevent injury. While doing exercises ? When standing, make sure you are near something sturdy that you can hold onto for balance, such as a heavy chair or the wall. ? Do exercises exactly as told by your health care provider and adjust them as directed. ? As you are recovering, choose an exercise pace that is comfortable for you, and gradually work up to your goal. ? Do not use a lot of force to bend your knee. Bend it gently. Increase activity as your knee heals. Follow these instructions at home: Activity ? Rest as told by your health care provider. ? Avoid sitting for a long time without moving. Get up to take short walks every 1?2 hours. This is important to improve blood flow and breathing. Ask for help if you feel weak or unsteady. ? Do not lift anything that is heavier than 10 lb (4.5 kg), or the limit that you are told, until your health care provider says that it is safe. ? Do not use your knee to support your body weight until your health care provider says that you can. Use crutches or a walker as told by your health care provider. ? Do not twist or kneel on your injured knee. ? Return to your normal activities as told by your health care provider. Ask your health care provider what activities are safe for you. Managing pain, stiffness, and swelling ? Put ice on affected areas after you exercise, or as needed. Icing can help to relieve joint pain and swelling. To do this: ? Put ice in a plastic bag or use the icing device (cold flow pad or cold therapy unit) that you were given. Follow instructions from your health care provider about how to use the icing device. ? Place a towel between your skin and the bag or device. ? Leave the ice on for 20 minutes, 2?3 times a day. ? If directed, apply heat to affected areas before you exercise, or as needed. Heat can reduce the stiffness of your muscles and joints. Use the heat source that your health care provider recommends, such as a moist heat pack or a heating pad. To do this: ? Place a towel between your skin and the heat source. ? Leave the heat on for 20?30 minutes. ? Remove the heat if your skin turns bright red. This is especially important if you are unable to feel pain, heat, or cold. You may have a greater risk of getting burned. ? Wear compression stockings as told by your health care provider. These stockings help to prevent blood clots and reduce swelling in your legs. ? Raise your legs while sitting or lying down. Do not place your knee on top of pillows to elevate it. Keep your legs straight to prevent your knee from getting stuck in a bent position (contracture). Preventing falls ? Keep your home well-lit and free of clutter, especially in walkways and stairways. Keep floors dry and use non-skid mats. ? Remove tripping hazards from floors, such as throw rugs and cords. ? Install grab bars in bathrooms, and put night-lights in your bedroom and bathroom. ? Wear closed-toe shoes that fit well and support your feet. Wear shoes that have rubber soles or low heels. ? Talk with your health care provider about any qnmx-tzx-vvzdnqn and prescription medicines that you are taking. Some medicines can cause dizziness or changes in blood pressure, which increase your risk of falling. General recommendations ? Teach your family about your condition and how they can help in your recovery. Include them during a physical therapy session. ? Keep all follow-up visits as told by your health care provider and physical therapist. This is important. Questions to ask your health care provider ? What exercises are safe for me to do? ? How often should I do the exercises? ? How can I manage the pain during exercise? (more content not included)... [facility] XR Knee One or Two Views Rig hton 02-02-2023 XR Knee One or Two Views Right CLINICAL HISTORY: Postop TECHNIQUE: 2 views of the knee COMPARISON: [None.] RESULT: Recent total right knee arthroplasty with patellar resurfacing. Hardware appears grossly intact. No periprosthetic lucency. Soft tissue gas and edema about the knee from the recent procedure. Skin nino anteriorly. IMPRESSION: Right total knee arthroplasty with expected findings. Final Signed (Electronic Signature): Rom Bryant MD 02/02/23 1:45 pm Technologist: LENKA [facility] Progress Note - Nurseon - Progress Note - Nurse Pre-op call done, instructed to arrive @ 0600 on 02-02-23, NPO after midnight-verbalized understanding. [Electronically Signed on: 01/30/2023 10:40 EDT] Amy Merritt RN [Verified on: 01/30/2023 10:40 EDT] Amy Merritt RN [facility] Coding Summaryon 01-15-2023 Coding Summary HTMLBase 64 QzydxkgyNQi1rBf+PGhlYWQ+PE1 ASJRwQ49vuQAjuX8nO9ZKTBoRUi sgNHIGTEdGEnFsrkSvTT4fyYLpJ XJu IC8+TA4lZIJvAkgxeRQta9S5wWE 1K95cbg6gXMsegHN0CDIcGkDhmn inu3sqiEq1GNlpNmegWcXu LGVooG81MJY4fI64Oc54cGMurIZ hv8yzfRj4BdXxIGKiFIY2rPmiLL mlf9NaMCUkV53jiLLfj5U8 PAWxtYgiaWUkXvElsRS9lE7ePOs twkobp7sxvyfaLwf1hk08hGLsx5 Q9iOL6L3QrvxB2DZSdjXCw KwlzhTFVuN1mjabkb2pwbrcaWbA rYAMuKVt5QCt8ZEZbdQeoRcRjIZ 67NJH5PAOfmqAvV8KjDVDc qGkrNcW8r0X3Zo1CG1OHKqroX6K NTUFSWTwvdGQ+RH05hp95D7KsUa ijAvs4WTZePMG1cFQ4tY9p KVXePVbak7Q0sYP2P9OslgAcez9 pp5ueKUGiAKyfQ40hwUXmt7G7MV BhtFU0VUDnoNdcAhXdyB89 Oyc+SOTydGmnj5HdFofqs5qib8y rnBb9OgvuZJPcieWztGbdAHR2h8 CpXs6yHJOtxEE2tBB1tZ6q BaRzJeR6JLagB941PiEvlVMuDvh oD28cP7DeeWK+GOGfYlg2OXGaqM fpKY9aU5KjWZBxdnzjsAGk iUqjBO7vNUQukforPUTddS9pNXU kT1q9CwYwLqN4FQstG1DwFUIcym vwBq13sC3sArDbCuZ2BIcg P6XxduK6DJXrdALsEKteBQO3O85 bk7Y6CHOjIIYpRTN2xJT5mI4jlR lnbjogbGVmdDsgdmVydGlj REuvIWauY230CSAheDjsBwRyTKf uZyBEYXRlOiAgMDkvMjgvMjAyMz wvdGQ+YUWcORI3bNrjGLAb bJFpNNtmKq9gkMcbkKleTY2hFBV qarahREKerV5yZCOcqQVzeWmcNI 1mQAFqkyiet925IkNgFVI1 MFUnrVJfY4YzbS1dKbUpWKPpQSV dZ9GmmAYfGMgxC644ERxjBwH1OX UgzjPzW1FvCUZmhRkdOaO9 x5Q5Sf3Ys3OteozhR7EinZLrUfL iFscaVBz0R5PsFhvjfEH+PC90YW ClVX96QJw5MNH4jQnmQNsb AFQqL1LzbQ7pByEjHZSeTXJkQps +PHRhYmxlIHdpZHRoPScxMDAlJy OtcAraQZ3pTl3hNJBnCUTr uFqvzWWfZnIwg1ywCHBkDHfgMZ6 znBzjJ4ChuNG2OCDww5x0Ly43J7 4uC1VylAC+YMAegHK1kAM6 bQ6aEkAeVyP5NUbjZ067PwJqnKV mQwkdp2mhs6hcmYl7KcW3BCQupa WteItjFMZ6f7KxIi79G07r IHdpZHRoPSIxNSUiIHZhbGlnbj0 ypF3zPu5+MNOecCP2uAA0pC2wDn RjOfS7GLfvK276TjKkaHMi Ulhkq2gub8sujDk6AuPxKCOcsrI foPekXTM4x0PaPl46E9CypFxhm0 MxTst8ml02fDRxf4R3rLY3 P5GfQDUnxmjkaIAsxOeqUF0cQAI rbsbvBEWooW0gRCYmE4o1YmWnFg G8HRlnB4IblfD1WFHibCMb FBXyjDLHdZ8arjxbl4fkynjtOdW oFXNxDPp0IOt1CMOxsPqlKyGtPH F3UiT9YSV4rSHnnU7xtSqb zzljnO7wXlt+MRH1kMYodSXFPM5 lOjwvdGQ+GMUhXUN0iSuwESjeRD HilQ5xXWIgF0h0PjPyTsB4 KUkvA1UivqQ9WYVyhDHjNOXzyZT RiO5upsrjd6crdbloWqWpCBMsUU x3NHw4XTHxxDtvGvPaQMV0 SlQ5GPH5lRWmnX6zzGahgmwvbH6 wOyc+EnqufHwnYQX0QRb5Z2BaGo f2ITQgkTnrQB5xwTFcDIll Tx8dxZosfFvwJL6jIIKweykrd28 5OyQry2axWHCdtTCkVPgcUXB3D0 0bi8B8KBUcOPLiUFX6vJU5 xV3wzEjiwwzsgGKhdAfbyeWalRl dFVesGUciX956KHTadJxgDpHyCG c5W9WnEsf3ZWUqlZiaML3s wOTwPOfoJo1wdKgnbOtyKD3jTOG hhifuq862BaSdc6pfVRKuoANbRE xxIJV6H53ya0J1STNyVXPw DPA0iAS0qL9tjQglknvcoNAeuQi jocQjfIaqOSfsGEoyX468HMCjzY dyIpSbpIj4X8RnEmb4UBOx lQexEB6yiIJeVXwlTr9vhZgxkOm uQL9dKMEcnwcrb790TkXmg5kbNQ LmeKTrUZeuVDL2L35zm9Q1 XBYxLAOfUIG0qRW6oN1dwKvecpl gbGVmdDsgdmVydGljYWwtYWxpZ2 46IHRvcDsnPlBhdGllbnQg GCqtGZm4X6KpTthpbGT+DS52YFR zSY38vNAqzLTiy0jviZo4HwJlCU YeSMB9yKlcNXkon0YpXMLz M20qoCZon2Q5EXQaoTfmxDLaIuY neCA6cV6gKWgowuhbw0bkxwnyOm qqs8jikz76hA19W15zDYzt RWUnXPQkHVVuRDVhxCfscd8fxH6 wIi8+VBEtiXL7hRR5vU2gCGFdCr I5IIscQ689GbWjsTCtGnhp u2iho0fayGv7HtW4VUMtgrChxZy dFKF1p2SxVq83O88oOEygDIBwEO NmORWuWLIqoRgqju9huQ2s Ii8+BRRrfWK2jKH6kK5iPgMgQfQ 2EPoiL191IxFixWKnAzbzG79jA4 JvdXA+YHKmQru1EAAzzIkh UT2fvQMgYZhrFb0fCEA7LiJvZgI sGCsqU2GjULMtsmetkqxtjJY4HM XoGNPmsH46Oz7ahOafVYKu zNDAkL1zmvlzo2nnjkglHoEbPKW pUYu0CZx3IEUpiSwnTsQrMPN2Fk X7ATY4uPChuQ1wtRhpqxvh vC4mO1SqCVAgxfcfRv95rI6dFdX oXqK6DGuhPff+E19RYpjxWMXXZR xODUa9X5KcKrd9HJPykDxg WX0omTWhSIskMu1uoBgtvMmxZI4 jLKJciilrXWDkoU9qUUQxjKWxwN ryBN9lDQCgdxmin812PdKc BJK3VNJiwGLrQ1EofR3sPwHuXDF dBHLrU8PzcEMaIRzvP623GPqwWf I2NLFfmzPwC9GpJIPdfUhm CvR1y7Z4Lt7xWw4bIk3jFUK2PS6 0VH75tTHhw0H5mRA9T7EvZKAaav ulfpivkAY6NWJaPLAksS44 gQGeZSyxRh2rj1A9e534LHYgKGE feQ53Gr9atJdiMOWpmVRXoJ3ska usp1cstilwCdOdDGBaLOe6 MXx8VVHgfGdrCbSpQFI4RnV0ATL 1cAIdjA1ueZbyntbgeV5oTez+Nj tyKKQtsqW4R2OjCel3HVMo cEwiFI0spXFoOCytYj5myHxjdPz dJI5yMDQyewjuMLQtkC2xYCFetF KosEdeDX4yTKAtcnarc883 UdGaCBT7YIXxbIJvD0SvqN3rHnW kVITdYQRwJ3UjjFUmAWtyP184HU tyVuA3WPHuqjZhK3IoDXGh pEejHtH6r0N9Pv2AEB6SJQN4P0P dKpo0KVBbvEdoUH3hpNOsGPllAt 9nwYbbsLgpID9dFYYetzva GWZbqD9aUDRwjMSyfPgnEY4kWJM gsbrrc764CpKxBIY1TYYqjWBoS2 OrqJ5dVkEsSYZiTDNfR1Xe dZKlLPmmI533PKqpHtS6VNPhfnJ iV1YrTLNvhHeiVnQ7p0D4Gz4ARM wvdGQ+KB90ng62O3KlZdgh Yhh7DEGwYRJ5uZD6yZ5qMZOjGIh fp9E7gWC5V8YfwtQzbj4ww9mlHD HzTTeaR27zwOKxk2J0IAMv hKI3TBIbdEpbRdQseP78Xdz+PGN mdBmux7LiZlmkf5bna0yeiFp9Rh VmZBEajyHxdKwrKJG6p9Fc Nv43X93yFXooQKGdXKZmWIViDAM joXtxvk6otU4wWb8+DMGwkPR6zN K9vK6jKoByYyC1QBmgL361 CrKiwGToSchba5ldi0wbpCv6BbN tDEMsyoHqpXdpTIQ4j5WrUn22D0 WgxBaan2NzVtg0rw24yJNl b9W1nIU9V6VkKFDtjofppKOlcAw xMQ9iVBCjaidlBLVtxA5vUREfF6 w0PcScZxD6MVkjR7ObuvU1 LFCvwSKuTXAzfDVBlC2avdain7c vktasJzAaLUCzMJh0YOq6CEXipT ivOcEgBPT2KfH2WCC9kEHz nD7tgZxumocofK7lJft+HAe1c6s ymYSaUT2axXH0MI91OL19sCNrq7 Q4bWF3U3UhPLWkumoggeon pXS5FGXlHSFfkJ50Hi2wbQtgZp2 yRYXoCTN2IYAnnSUaC6FymR4uMw TgCJOgYZPsV0ZfbJDfWJji L228GCkxBkY0WGGlfeOdW4GiDVQ mbYehQtZ2w5J3Zo5BDO81AL43YP 85hGCas8B3fUJ2C0MlXZJc yocjgegqjUV9ZDAwQVLauP44Xc7 cgLxlKl6pPDJyIZJ1XRIghQUcF0 OduB6wDeQsEMBgAMEjW5Xm pWZmWKzjW693QWptHrX3VEHrciV vT0QwDMDvnNluWzN1v5W1Vb9NQf 15KI65AX53mQRkw2A5uLS7 U0AsJCRaygrccqxeiSZ7MIPbTEP urR13Id0zeUhkHl8dQDNbQUS2LL OfeMLqP8QnjL8pSeGrAHCr XQEwS0GuxOShYWgoX004ALvjMqL 1RNLoscIxG7BxYTIcnLapNnX4r7 M3Zl5YVGolunj4I9ToWugy dHI+BT52CRSvLO97xXBasUOsi1a ilJj8MxUrKLEmSCD7tSjzYNeam1 NsBLPtP13kcHNcg2B0PLNp bGx (more content not included)... [facility] Consultation Noteon 01-14-20 Consultation Note [id number]:[id number] [facility] Progress Note - Nurseon 12-20 Progress Note - Nurse Chart reviewed per Dr Samayoa anesthesia, no further orders received [Electronically Signed on: 01/12/2023 15:30 EDT] Elizabeth Champion RN [Verified on: 01/12/2023 15:30 EDT] Elizabeth Champion RN [facility] C MRSA Screenon 01-09-2023 C MRSA Screen Negative [facility] Comment on above: Performed By: #### 1 [id number] ####[facility] (DEFAULT)[address] [place] [address] Provider Orderson 01-09-2023 Provider Orders [id number] Normal [facility] .Auto Diff 1on 01-08-2023 Auto Candler % 11 % Normal 1-12 [facility] Comment on above: Performed By: #### 1 [id number] ####[facility] (DEFAULT)[address] [place] [id number] Baso Abs# 0.0 x10 Normal 0.0-0.2 [facility] Comment on above: Performed By: #### 1 [id number] ####[facility] (DEFAULT)[address] [place] [address] Basophils/100 WBC (Bld) 0.4 % Normal 0.2-2.0 [facility] Comment on above: Performed By: #### 1 [id number] ####[facility] (DEFAULT)[address] [place] [id number] Eos Abs# 0.1 x10 Normal 0.0-0.4 [facility] Comment on above: Performed By: #### 1 [id number] ####[facility] (DEFAULT)[address] [place] [id number] Eosinophils/100 WBC (Bld) 1.2 % Normal 0.9-4.0 [facility] Comment on above: Performed By: #### 1 [id number], [id number] ####[facility] (DEFAULT)[address] [place] [id number] Lymph Abs# 0.9 x10 Low 1.3-2.9 [facility] Comment on above: Performed By: #### 1 [id number], [id number], [id number] ####[facility] (DEFAULT)[address] [place] [address] 56879 Lymphocytes/100 WBC (Bld) 14 % Normal 14-48 [facility] Comment on above: Performed By: #### 1 [id number], [id number], [id number] ####[facility] (DEFAULT)[address] [place] [address] 49176 Candler Abs# 0.8 x10 Normal 0.0-0.8 [facility] Comment on above: Performed By: #### 1 [id number], [id number], [id number] ####[facility] (DEFAULT)[address] [place] [address] 73389 Neut Abs# 5.0 x10 Normal 1.5-9.2 [facility] Comment on above: Performed By: #### 1 [id number], [id number], [id number] ####[facility] (DEFAULT)[address] [place] [address] Neutrophils/100 WBC (Bld) 74 % Normal 44-88 [facility] Comment on above: Performed By: #### 1 [id number], [id number], [id number] ####[facility] (DEFAULT)[address] [place] [address] Standardon 01-08-2023 eGFR Non AA >60 Invalid Interpretation Code [facility] Comment on above: Performed By: #### 1 [id number], [id number], [id number] ####[facility] (DEFAULT)[address] [place] [address] 40760 eGFR AA >60 Invalid Interpretation Code [facility] Comment on above: Performed By: #### 1 [id number], [id number], [id number] ####[facility] (DEFAULT)[address] [place] [address] 91083 Anion gap [Moles/Vol] 9.9 mmol/L Normal 5.0-19.0 [facility] Comment on above: Performed By: #### 1 [id number], [id number], [id number] ####[facility] (DEFAULT)[address] [place] [address] 45069 Calcium [Mass/Vol] 9.2 mg/dL Normal 8.9-10.3 [facility] Comment on above: Performed By: #### 1 [id number], [id number], [id number] ####[facility] (DEFAULT)[address] [place] [address] 96557 Chloride [Moles/Vol] 107 mmol/L Normal 101-111 [facility] Comment on above: Performed By: #### 1 [id number], [id number], [id number] ####[facility] (DEFAULT)[address] [place] [address] 66677 CO2 [Moles/Vol] 25 mmol/L Normal 21-32 [facility] Comment on above: Performed By: #### 1 [id number], [id number], [id number] ####[facility] (DEFAULT)[address] [place] [address] 22626 Creatinine [Mass/Vol] 0.83 mg/dL Normal 0.60-1.30 [facility] Comment on above: Performed By: #### 1 [id number], [id number], [id number] ####[facility] (DEFAULT)[address] [place] [address] 85133 Glucose [Mass/Vol] 95.0 mg/dL Normal 74.0-118.0 [facility] Comment on above: Performed By: #### 1 [id number], [id number], [id number] ####[facility] (DEFAULT)[address] [place] [address] 29466 Osmolality 275 mOsm/L Invalid Interpretation Code [facility] Comment on above: Performed By: #### 1 [id number], [id number], [id number] ####[facility] (DEFAULT)[address] [place] [address] 64058 Potassium [Moles/Vol] 3.9 mmol/L Normal 3.6-5.1 [facility] Comment on above: Performed By: #### 1 [id number], [id number], [id number] ####[facility] (DEFAULT)[address] [place] [address] 69592 Sodium [Moles/Vol] 138.0 mmol/L Normal 136.0-144.0 [facility] Comment on above: Performed By: #### 1 [id number], [id number], [id number] ####[facility] (DEFAULT)[address] [place] [address] 40898 Urea nitrogen [Mass/Vol] 11 mg/dL Normal 8-26 [facility] Comment on above: Performed By: #### 1 [id number], [id number], [id number] ####[facility] (DEFAULT)[address] [place] [address] 39158 Urea nitrogen/Creatinin e [Mass ratio] 13.2 mg/mg Normal 4.6-16.2 [facility] Comment on above: Performed By: #### 1 [id number], [id number], [id number] ####[facility] (DEFAULT)[address] [place] [address] CBC w/ Auto Diffon 3 Erythrocyte distribution width (RBC) [Ratio] 12.8 % Normal 11.5-15.0 [facility] Comment on above: Performed By: #### 1 [id number], [id number], [id number] ####[facility] (DEFAULT)[address] [place] [address] Hematocrit (Bld) [Volume fraction] 36.9 % Normal 33.7-40.4 [facility] Comment on above: Performed By: #### 1 [id number], [id number], 3741845 ####[facility] (DEFAULT)[address] [place] [address] 12476 Hemoglobin (Bld) [Mass/Vol] 12.4 g/dL Normal 11.3-15.9 [facility] Comment on above: Performed By: #### 1 [id number], [id number], 3712656 ####[facility] (DEFAULT)[address] [place] [address] 52910 Man Diff? Auto Invalid Interpretation Code [facility] Comment on above: Performed By: #### 1 [id number], [id number], [id number] ####[facility] (DEFAULT)[address] [place] [address] 26068 MCH (RBC) [Entitic mass] 31 pg Normal 24-34 [facility] Comment on above: Performed By: #### 1 [id number], [id number], 4529266 ####[facility] (DEFAULT)[address] [place] [address] 30628 MCHC (RBC) [Mass/Vol] 34 g/dL Normal 26-37 [facility] Comment on above: Performed By: #### 1 [id number], [id number], 4271901 ####[facility] (DEFAULT)[address] [place] [address] 22714 MCV (RBC) [Entitic vol] 93 fL Normal 81-100 [facility] Comment on above: Performed By: #### 1 [id number], [id number], 9524643 ####[facility] (DEFAULT)[address] [place] [address] 86058 Platelet 230 x10 Normal 138-427 [facility] Comment on above: Performed By: #### 1 [id number], [id number], 1164202 ####[facility] (DEFAULT)[address] [place] [address] 07178 Platelet mean volume (Bld) [Entitic vol] 8.9 fL Normal 6.3-10.2 [facility] Comment on above: Performed By: #### 1 [id number], [id number], 7480464 ####[facility] (DEFAULT)[address] [place] [address] 34791 RBC 3.98 x10 Normal 3.70-5.30 [facility] Comment on above: Performed By: #### 1 [id number], [id number], 0585516 ####[facility] (DEFAULT)[address] [place] [address] 43405 WBC 6.8 x10 Normal 3.5-10.5 [facility] Comment on above: Performed By: #### 1 [id number], 71775597, 6160627 ####[facility] (DEFAULT)[address] [place] [address] 22090 Consent for Flu Vaccineon Consent for Flu Vaccine [id number]#[id number]:[address] [facility] UA w Culture if Ind Standard on 01-08-2023 Breakpoint UA Normal [facility] Comment on above: Performed By: #### 1 [id number] ####[facility] (DEFAULT)[address] [place] [address] 87001 Color (U) Yellow Normal [facility] Comment on above: Performed By: #### 1 [id number] ####[facility] (DEFAULT)[address] [place] [address] Culture? Not Indicated Invalid Interpretation Code [facility] Comment on above: Result Comment: Resu lt created by rule [id number]_[id number] Performed By: #### 1 [id number] ####[facility] (DEFAULT)[address] [place] [address] Glucose (U) [Mass/Vol] Negative Normal [facility] Comment on above: Performed By: #### 1 [id number] ####[facility] (DEFAULT)[address] [place] [address] Ketones Ql (U) Negative [facility] Comment on above: Performed By: #### 1 [id number] ####[facility] (DEFAULT)[address] [place] [address] Micro? Not Indicated Invalid Interpretation Code [facility] Comment on above: Result Comment: Resu lt created by rule GL_MAGR_ADD_UA_MICRO Performed By: #### 1 [id number] ####[facility] (DEFAULT)[address] [place] [address] UA Bilirubin Negative Normal [facility] Comment on above: Performed By: #### 1 [id number] ####[facility] (DEFAULT)[address] [place] [address] 09019 UA Blood Negative Normal NEGATIVE [facility] Comment on above: Performed By: #### 1 [id number] ####[facility] (DEFAULT)[address] [place] [address] 01417 UA Clarity CLEAR Normal CLEAR [facility] Comment on above: Performed By: #### 1 [id number] ####[facility] (DEFAULT)[address] [place] [address] 62047 UA Leuk Est Negative Normal NEGATIVE [facility] Comment on above: Performed By: #### 1 [id number] ####[facility] (DEFAULT)[address] [place] [address] 17720 UA Nitrite Negative Normal NEGATIVE [facility] Comment on above: Performed By: #### 1 [id number] ####[facility] (DEFAULT)[address] [place] [address] UA pH 6.0 Normal 5-8 [facility] Comment on above: Performed By: #### 1 [id number] ####[facility] (DEFAULT)[address] [place] [address] UA Protein Negative Normal NEGATIVE [facility] Comment on above: Performed By: #### 1 [id number] ####[facility] (DEFAULT)[address] [place] [address] UA Spec Grav <=1.005 Normal 1.001-1.035 [facility] Comment on above: Performed By: #### 1 [id number] ####[facility] (DEFAULT)[address] [place] [address] UA Urobilinogen 0.2 mg/dL Normal 0.2-1.0 [facility] Comment on above: Performed By: #### 1 [id number] ####[facility] (DEFAULT)[address] [place] [address] Urine Source Clean Catch Normal [facility] Comment on above: Performed By: #### 1 [id number] ####[facility] (DEFAULT)[address] [place] [address] Ambulatory Visit Summaryon 0 01-07-2023 Ambulatory Visit Summary MARTHA DALEY :1955 Visit Date:01/07/2023 Ambulatory Visit Instructions Your Diagnosis Anxiety Persistent atrial fibrillation Dysphagia, unspecified type BMI 28.0-28.9,adult Over weight Your Care Team Attending Physician - Román Feliz MD Primary Care Physician - Román Feliz MD This Is Your Medications List olanzapine (ZyPREXA 7.5 mg Tab) Contact prescribing physician if questions or concerns apixaban (apixaban 5 mg oral tablet) atorvastatin (atorvastatin 10 mg Tab) busPIRone (busPIRone 5 mg Tab) celecoxib (Celebrex 400 mg oral capsule) fluticasone nasal (Flonase 0.05 mg/inh [place]) gabapentin (gabapentin 100 mg Cap) metoprolol (Metoprolol tartrate 50 mg Tab) Procedures Performed Arthroplasty of the hip (07/07/2016), Colonoscopy (11/23/2014), EGD - Esophagogastroduodenoscopy (11/23/2014), Arthroplasty of the hip, Cholecystectomy, Colonoscopy, Tubal ligation, Vaginal total hysterectomy. Discharge Vitals Respiratory Rate 16 Blood Pressure 138/80 Height 68 in Height 172 cm Weight 185.24 lb Weight 84.2 kg BMI 28.46 What to do next Scheduled Follow-Up Appointments 2022 2:15 PM EDT With: Theresa GREGG, Russell Taylor Where: [facility] Thursday 2:40 PM EST With: Tray GREGG, Román Wilcox Where: [address] [address]- \.br\ Medications\.br\ What How Much When Why Instructions\.br \ Changed olanzapine (ZyPREXA 7.5 mg Tab) 1 Tablets By Mouth Every day Pickup at [facility]\.br\ Unchanged apixaban (apixaban 5 mg oral tablet) 1 Tablets By Mouth 2 times a day Contact prescribing physician if questions or concerns \.br\ Unchanged atorvastatin (atorvastatin 10 mg Tab) 1 Tablets By Mouth Every day Contact prescribing physician if questions or concerns \.br\ Unchanged busPIRone (busPIRone 5 mg Tab) See instructions TAKE ONE TABLET BY MOUTH THREE TIMES A DAY Contact prescribing physician if questions or concerns \.br\ Unchanged celecoxib (Celebrex 400 mg oral capsule) 1 Capsules By Mouth Every day Contact prescribing physician if questions or concerns \.br\ Unchanged fluticasone nasal (Flonase 0.05 mg/ inh [place]) 1 Sprays Nasal Inhalation 2 times a day Taste impairment BMI 28.0-28.9,adult Overweight each nostril Contact prescribing physician if questions or concerns \.br\ Unchanged gabapentin (gabapentin 100 mg Cap) TAKE ONE CAPSULE BY MOUTH THREE TIMES A DAY FOR 30 DAYS Contact prescribing physician if questions or concerns \.br\ Unchanged metoprolol (Metoprolol tartrate 50 mg Tab) 1 Tablets By Mouth 2 times a day Contact prescribing physician if questions or concerns \.br\ Pharmacy Information\.br\ [facility]: [address], [place] [phone]\.br\ Allergies\.br\ Adhesive Bandage (Unknown)\.br\ codeine (Unknown)\.br\ iodine (Unknown)\.br\ penicillin (Unknown)\.br\ Problems\.br\ Ongoing - Any problem that you are currently receiving treatment for.\.br\ Allergic rhinitis, seasonal\.br\ Anxiety\.br\ BMI 27.0-27.9,adult\ .br\ Change in bowel habits\.br\ Chronic GERD\.br\ Diverticulosis\. br\ Dysphagia\.br\ Early satiety\.br\ Endometritis\.br \ Family history of colon cancer in father\.br\ Fibromyalgia\.br \ Hiatal hernia\.br\ History of depression\.br\ History of diverticulitis\. br\ History of nephrolithiasis\ .br\ Impaired ambulation\.br\ Lupus\.br\ Migraines\.br\ OA (osteoarthritis) \.br\ Osteopenia\.br\ Persistent atrial fibrillation\.br \ Primary fibrositis\.br\ Pure hypercholesterol emia\.br\ Severe episode of recurrent major depressive disorder, without psychotic features\.br\ Taste impairment\.br\ Urinary incontinence\.br \ Vitamin D deficiency\.br\ \.br\ [facility] Family Medicine Office/Clini c Noteon 01-07-2023 Family Medicine Office/Clinic Note Chief Complaint Anxiety HPI Staff Martha is a 67 year old female presenting for 3 month check. Follow up for Mental Status: Medication adherence- Yes, takes medication as prescribed MEdication refill needed: _ Suicidal thoughts-Not at this time Most recent JANET: 12 Most recent PHQ: flu: Questions/Concerns: surgical clearance. History of Present Illness - Here for anxiety follow up. - JANET of 12 - Feeling good. - Worried about her R knee surgery. Otherwise, No other issues. Review of Systems PHQ Score Initial Depression Screen Score: 2 Physical Exam Vitals & Measurements RR: 16 BP: 138/80 HT: 68 in HT: 172 cm WT: 84.2 kg WT: 185.24 lb BMI: 28.46 General: alert, no acute distress ENMT: oral mucosa moist, Cardiovascular: irregularly-irregular rate and rhythm, normal peripheral perfusion Respiratory: Lungs CTA, respirations non labored Extremities: no deformity, no trauma Neurological: oriented x 4, LOC appropriate for age, CN II-XII intact, motor strength equal & normal bilaterally, speech normal Abdomen: Soft, Nontender, Non-distended, + BS Assessment/Plan 1. Pre-op exam (Z01.818: Encounter for other preprocedural examination) - Pt is optimized for the patient's surgery. 2. Anxiety (F41.9: Anxiety disorder, unspecified) - Not at goal yet. - Will increase the zyprex 3. Knee pain, right (M25.561: Pain in right knee) - Reviewed Cardiology's clearnace. - OK with pt moving forward with clearance as well. - Moderate Risk 4. Persistent atrial fibrillation (I48.19: Other persistent atrial fibrillation) - Continue eliquis - Follow up with cardiology 5. BMI 28.0-28.9,adult (Z68.28: Body mass index [BMI] 28.0-28.9, adult) - BMI education given 6. Over weight (E66.3: Overweight) - As above. Orders: olanzapine, 7.5 mg = 1 tab(s), Oral, Daily, # 90 tab(s), Refills(s) 0, Pharmacy: [facility], 149.6, cm, 01/07/23 13:40:00 EDT, Height/Length Dosing, 84.2, kg, 01/07/23 13:40:00 EDT, Weight Dosing Follow-up No qualifying data available Patient Education BMI for Adults Problem List/Past Medical History Ongoing Allergic rhinitis, seasonal Anxiety BMI 27.0-27.9,adult Change in bowel habits Chronic GERD Diverticulosis Dysphagia Early satiety Endometritis Family history of colon cancer in father Fibromyalgia Hiatal hernia History of depression History of diverticulitis History of nephrolithiasis Impaired ambulation Knee pain, right Lupus Migraines OA (osteoarthritis) Osteopenia Persistent atrial fibrillation Pre-op exam Primary fibrositis Pure hypercholesterolemia Severe episode of recurrent major depressive disorder, 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 Medications apixaban 5 mg oral tablet, 5 mg= 1 tab(s), Oral, BID, 1 refills atorvastatin 10 mg Tab, 10 mg= 1 tab(s), Oral, Daily, 1 refills busPIRone 5 mg Tab, See Instructions Celebrex 400 mg oral capsule, 400 mg= 1 cap(s), Oral, Daily Flonase 0.05 mg/inh [place], 1 spray(s), Nasal, BID gabapentin 100 mg Cap Metoprolol tartrate 50 mg Tab, 50 mg= 1 tab(s), Oral, BID, 3 refills ZyPREXA 7.5 mg Tab, 7.5 mg= 1 tab(s), Oral, Daily Allergies Adhesive Bandage (Unknown) codeine (Unknown) iodine (Unknown) penicillin (Unknown) Social History Alcohol - Denies Alcohol Use, 01/28/2022 Household alcohol concerns: No., 10/16/2022 Substance Abuse - Denies Substance Abuse, 01/28/2022 Tobacco - Denies Tobacco Use, 09/03/2022 Former smoker, quit more than 30 days ago Tobacco Use:. Never Smokeless Tobacco Use:. Cigarettes, 3 per day. Started age 16.0 Years. Stopped age 36 Years. Household tobacco concerns: No., 01/07/2023 Family History Heart disease: Mother. Primary malignant neoplasm of colon: Father. Primary malignant neoplasm of lung: Brother. Immunizations Vaccine Date Status Comments influenza virus vaccine, inactivated - Not Given Patient Refuses influenza virus vaccine, inactivated 02/14/2021 Recorded SARS-CoV-2 (COVID-19) mRNA BNT-162b2 vax 02/14/2021 Recorded SARS-CoV-2 (COVID-19) mRNA BNT-162b2 vax 06/10/2020 Recorded 2022-08-01: [id number] SARS-CoV-2 (COVID-19) mRNA BNT-162b2 vax 05/23/2020 Recorded 2022-08-01: TPV65 influenza virus vaccine, inactivated 01/16/2017 Recorded influenza virus vaccine, inactivated 12/19/2016 Recorded influenza virus vaccine, inactivated 01/22/2016 Recorded influenza virus vaccine, inactivated 12/24/2015 Recorded influenza virus vaccine, inactivated 02/01/2015 Recorded influenza virus vaccine, inactivated 02/17/2014 Recorded influenza virus vaccine, inactivated 02/16/2013 Recorded Normal [facility] Comment on above: Result Comment: Elec tronically Signed By: Tray GREGG, Román Dean.br\Date and Time Signed: 01/07/23 13:59 EDT Patient Educationon 01-08-20 Patient Education Nutrition BMI for Adults What is BMI? Body mass index (BMI) is a number that is calculated from a person's weight and height. BMI can help estimate how much of a person's weight is composed of fat. BMI does not measure body fat directly. Rather, it is an alternative to procedures that directly measure body fat, which can be difficult and expensive. BMI can help identify people who may be at higher risk for certain medical problems. What are BMI measurements used for? BMI is used as a screening tool to identify possible weight problems. It helps determine whether a person is obese, overweight, a healthy weight, or underweight. BMI is useful for: ? Identifying a weight problem that may be related to a medical condition or may increase the risk for medical problems. ? Promoting changes, such as changes in diet and exercise, to help reach a healthy weight. BMI screening can be repeated to see if these changes are working. How is BMI calculated? BMI involves measuring your weight in relation to your height. Both height and weight are measured, and the BMI is calculated from those numbers. This can be done either in [place] or metric measurements. Note that charts and online BMI calculators are available to help you find your BMI quickly and easily without having to do these calculations yourself. To calculate your BMI in [place] measurements: 1. Measure your weight in pounds (lb). 2. Multiply the number of pounds by 703. ? For example, for a person who weighs 180 lb, multiply that number by 703, which equals 126,540. 3. Measure your height in inches. Then multiply that number by itself to get a measurement called inches squared. ? For example, for a person who is 70 inches tall, the inches squared measurement is 70 inches x 70 inches, which equals 4,900 inches squared. 4. Divide the total from step 2 (number of lb x 703) by the total from step 3 (inches squared): 126,540 ? 4,900 = 25.8. This is your BMI. To calculate your BMI in metric measurements: 1. Measure your weight in kilograms (kg). 2. Measure your height in meters (m). Then multiply that number by itself to get a measurement called meters squared. ? For example, for a person who is 1.75 m tall, the meters squared measurement is 1.75 m x 1.75 m, which is equal to 3.1 meters squared. 3. Divide the number of kilograms (your weight) by the meters squared number. In this example: 70 ? 3.1 = 22.6. This is your BMI. What do the results mean? BMI charts are used to identify whether you are underweight, normal weight, overweight, or obese. The following guidelines will be used: ? Underweight: BMI less than 18.5. ? Normal weight: BMI between 18.5 and 24.9. ? Overweight: BMI between 25 and 29.9. ? Obese: BMI of 30 or above. Keep these notes in mind: ? Weight includes both fat and muscle, so someone with a muscular build, such as an athlete, may have a BMI that is higher than 24.9. In cases like these, BMI is not an accurate measure of body fat. ? To determine if excess body fat is the cause of a BMI of 25 or higher, further assessments may need to be done by a health care provider. ? BMI is usually interpreted in the same way for men and women. Where to find more information For more information about BMI, including tools to quickly calculate your BMI, go to these websites: ? Centers for Disease Control and Prevention: www.cdc.gov ? [place] [employer]: www.heart.org ? National Heart, Lung, and Blood [place]: www.nhlbi.nih.gov Summary ? Body mass index (BMI) is a number that is calculated from a person's weight and height. ? BMI may help estimate how much of a person's weight is composed of fat. BMI can help identify those who may be at higher risk for certain medical problems. ? BMI can be measured using [place]ian measurements or metric measurements. ? BMI charts are used to identify whether you are underweight, normal weight, overweight, or obese. This information is not intended to replace advice given to you by your health care provider. Make sure you discuss any questions you have with your health care provider. Document Revised: 12/28/2019 Document Reviewed: 11/04/2019 Marley Spoon Patient Education ? 2022 [employer] [facility] ADT Notificationon 3 ADT Notification - From: Arash Duong (Therapy Registrar ([facility])) To: Centralized Scheduling Pool ([facility]); Sent: 12/31/2022 14:48:25 EDT Subject: THE PATIENT DID NOT SHOW UP, CALLED AND THE PATIENT DID NOT ANSWER [phone] Caller Name: MARTHA DALEY; Caller Number: Artur , M Thank you. [facility] Consultation Noteon 01-01-20 Consultation Note [id number]#[id number]:127 [facility] Provider Orderson 12-23-2022 Provider Orders [id number] [facility] Formson 12-08-2022 Forms [id number]:127 [facility] Heart and Vascular Office/Cl inic Noteon 12-08-2022 Heart and Vascular Office/Clinic Note Chief Complaint here for test results History of Present Illness Martha Daley is a 67-year-old female who presents today for a follow-up evaluation of permanent atrial fibrillation and for a preoperative clearance. She feels good at this time, however, she has been experiencing occasional episodes of chest tightness, and she must take deep breaths for relief. She is currently taking metoprolol 25 mg as well as Eliquis. She will be undergoing knee surgery and inquires whether she will need to temporarily discontinue her current medications preoperatively. Echocardiogram showed bi-atrial enlargement but normal LV function. Stress test showed no ischemia. Holter monitor showed she still has some SVT. Review of Systems Constitutional: no fever, no sweats, no weakness Skin: no rash, no lesions, no bruising/petechiae ENMT: no sore throat, no congestion, no hoarseness Respiratory: no shortness of breath, no cough, no orthopnea, no wheezing Cardiovascular: intermittent chest tightness and palpitations, no edema Gastrointestinal: no nausea, no vomiting, no diarrhea, no GI bleeding Genitourinary: no anuria/oliguria no hematuria Musculoskeletal: no back pain, no trauma Neurologic: no headache, no dizziness, no numbness, no weakness Psychiatric: no sleeping problems, no irritability, no anxiety/depression. Heme/Lymph: no bleeding tendency, no bruising tendency Allergy/Immunologic: no recurrent infections, no impaired immunity Additional ROS info: Except as noted in the above Review of Systems and in the History of Present Illness all other systems have been reviewed and are negative or noncontributory Physical Exam Vitals & Measurements HR: 74(Peripheral) BP: 132/68 SpO2: 98% HT: 68 in HT: 172 cm WT: 83.9 kg WT: 184.58 lb BMI: 28.36 General: alert, no acute distress Skin: warm, dry intact Head: atraumatic, normocephalic Neck: trachea midline, no JVD, no bruit Eye: normal conjunctiva, sclera clear ENMT: oral mucosa moist Cardiovascular: regular rate and rhythm, no murmur, normal peripheral perfusion Respiratory: lungs CTA, respirations non labored Chest wall: no deformity. Gastrointestinal: soft, non-distended, no tenderness, no guarding. Back: no tenderness, normal ROM, normal alignment. Extremities: no edema, no deformity, no trauma Neurological: oriented x 4, LOC appropriate for age, sensation equal & normal bilaterally, speech normal Psychiatric: cooperative, affect appropriate for age, normal judgement, normal psychiatric thoughts. Assessment/Plan Martha Daley is a 67-year-old female with a history of permanent atrial fibrillation. 1. Palpitations (R00.2: Palpitations) Her heart rate is reasonably controlled, but she still has some SVT on the Holter monitor. We did an echocardiogram that showed bi-atrial enlargement but good LV function. The stress test showed no ischemia. We are going to increase her metoprolol and have her listed as acceptable risk for surgery although intermediate due to the atrial fibrillation. She will have to hold her Eliquis for a couple of days. Continue beta ankush in the perioperative period. Follow up in 6 months in [place]. Portions of this record may have been created with voice recognition artificial intelligence software, specifically [employer], [employer] and or [employer]. Substitutions may have occurred with voice recognition and artificial intelligence software. Documentation services were performed after patient or guardian consented to allow [employer] to record this visit. ANA MARÍA talent acquisition specialist and provider reviewed before signing. ANA MARÍA: Toby Holguin Reviewed by Michelle Son Follow-up No qualifying data available Problem List/Past Medical History Ongoing Allergic rhinitis, seasonal Anxiety BMI 27.0-27.9,adult Change in bowel habits Chronic GERD Diverticulosis Dysphagia Early satiety Endometritis Family history of colon cancer in father Fibromyalgia Hiatal hernia History of depression History of diverticulitis History of nephrolithiasis Impaired ambulation Lupus Migraines OA (osteoarthritis) Osteopenia Persistent atrial fibrillation Primary fibrositis Pure hypercholesterolemia Severe episode of recurrent major depressive disorder, 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 Medications apixaban 5 mg oral tablet, 5 mg= 1 tab(s), Oral, BID, 1 refills atorvastatin 10 mg Tab, 10 mg= 1 tab(s), Oral, Daily, 1 refills busPIRone 5 mg Tab, 5 mg= 1 tab(s), Oral, TID Celebrex 400 mg oral capsule, 400 mg= 1 cap(s), Oral, Daily Flonase 0.05 mg/inh [place], 1 spray(s), N (more content not included)... Normal [facility] Comment on above: Result Comment: Elec tronically Signed By: Theresa GREGG, Russell Taylor\.br\Date and Time Signed: 12/08/22 07:11 EDT\.br\Electronically Co-Signed By: Toby Holguin\.br\Date and Time Co-Signed: 12/04/22 13:10 EDT Physician Orderon 12-08-2022 Physician Order [id number]#1.00CD:[address] [facility] Physician Order [id number]#1.00CD:[address] [facility] Consent for Treatmenton 11-18 Consent for Treatment [id number]:[address] [facility] BNPon 09-03-2022 Natriuretic peptide B (Bld) [Mass/Vol] 93.0 pg/mL Normal <=900.0 [facility] Comment on above: Performed By: #### F T4 #### [facility] [address] [place] [address] Dr. Shawn Jett CBC AUTO DIFFon 09-03-2022 BASO # 0.0 103/ul Normal 0.0-0.1 [facility] Comment on above: Performed By: #### C BC #### [facility] [address] [place] [address] Dr. Shawn Jett Basophils/100 WBC (Bld) 0.5 % Normal 0.2-2.0 [facility] Comment on above: Performed By: #### C BC #### [facility] [address] [place] [address] Dr. Shawn Jett EO # 0.1 103/ul Normal 0.0-0.7 [facility] Comment on above: Performed By: #### C BC #### [facility] [address] [place] [address] Dr. Shawn Jett Eosinophils/100 WBC (Bld) 1.6 % Normal 0.9-7.0 [facility] Comment on above: Performed By: #### C BC #### [facility] [address] [place] [address] Dr. Shawn Jett Erythrocyte distribution width (RBC) [Ratio] 12.6 % Normal 11.0-15.0 [facility] Comment on above: Performed By: #### C BC #### [facility] [address] [place] [address] Dr. Shawn Jett Hematocrit (Bld) [Volume fraction] 44.5 % Normal 36.0-48.0 [facility] Comment on above: Performed By: #### C BC #### [facility] [address] [place] [address] Dr. Shawn Jett Hemoglobin (Bld) [Mass/Vol] 14.3 g/dL Normal 12.0-16.0 [facility] Comment on above: Performed By: #### C BC #### [facility] [address] [place] [address] Dr. Shawn Jett IG # 0.01 10e3/ul Normal 0.00-0.03 [facility] Comment on above: Performed By: #### C BC #### [facility] [address] [place] [address] Dr. Shawn Jett IG % 0.2 % Normal 0.0-0.5 [facility] Comment on above: Performed By: #### C BC #### [facility] [address] [place] [address] Dr. Shawn Jett LYMPH # 2.0 103/ul Normal 1.2-3.8 [facility] Comment on above: Performed By: #### C BC #### [facility] [address] [place] [address] Dr. Shawn Jett Lymphocytes/100 WBC (Bld) 31.3 % Normal 20.5-60.0 [facility] Comment on above: Performed By: #### C BC #### [facility] [address] [place] [address] Dr. Shawn Jett MANUAL DIFF REQ NO Normal [facility] Comment on above: Performed By: #### C BC #### [facility] [address] [place] [address] Dr. Shawn Jett MCH (RBC) [Entitic mass] 30.7 pg Normal 26.7-34.0 [facility] Comment on above: Performed By: #### C BC #### [facility] [address] [place] [address] Dr. Shawn Jett MCHC (RBC) [Mass/Vol] 32.1 g/dL Normal 29.9-35.2 [facility] Comment on above: Performed By: #### C BC #### [facility] [address] [place], [place] [id number] Dr. Shawn Jett MCV (RBC) [Entitic vol] 95.5 fL Normal 81.0-99.0 [facility] Comment on above: Performed By: #### C BC #### [facility] [address] [place] [address] Dr. Shawn Jett MONO # 0.6 103/ul Normal 0.3-0.8 [facility] Comment on above: Performed By: #### C BC #### [facility] [address] [place] [address] Dr. Shawn Jett Monocytes/100 WBC (Bld) 10.0 % Normal 1.7-12.0 [facility] Comment on above: Performed By: #### C BC #### [facility] [address] [place] [address] Dr. Shawn Jett NEUT # 3.6 103/ul Normal 1.4-6.5 [facility] Comment on above: Performed By: #### C BC #### [facility] [address] [place] [address] Dr. Shawn Jett Neutrophils/100 WBC (Bld) 56.4 % Normal 43.0-75.0 [facility] Comment on above: Performed By: #### C BC #### [facility] [address] [place] [address] Dr. Shawn Jett Platelet mean volume (Bld) [Entitic vol] 9.1 fL Critically low 9.5-13.5 [facility] Comment on above: Performed By: #### C BC #### [facility] [address] [place] [address] Dr. Shawn Jett PLT 252 103/ul Normal 150-450 [facility] Comment on above: Performed By: #### C BC #### [facility] [address] [place] [address] Dr. Shawn Jett RBC 4.66 106/ul Normal 4.20-5.40 [facility] Comment on above: Performed By: #### C BC #### [facility] [address] [place] [address] Dr. Shawn Jett WBC 6.4 103/ul Normal 4.0-11.0 [facility] Comment on above: Performed By: #### C BC #### [facility] [address] [place] [address] Dr. Shawn Jett FREE T3on 09-03-2022 FREE T3 2.80 pg/mlL Normal 2.18-3.98 [facility] Comment on above: Performed By: #### F T4 #### [facility] [address] [place] [address] Dr. Shawn Jett FREE T4on 09-03-2022 Free T4 [Mass/Vol] 1.11 ng/dL Normal 0.76-1.46 [facility] Comment on above: Performed By: #### F T4 #### [facility] [address] [place] [address] Dr. Shawn Jett PROF 14(COMP METB)on 023 Albumin [Mass/Vol] 4.1 g/dL Normal 3.4-5.0 [facility] Comment on above: Performed By: #### F T4 #### [facility] [address] [place] [address] Dr. Shawn Jett Albumin/Globulin [Mass ratio] 1.0 {ratio} Normal [facility] Comment on above: Performed By: #### F T4 #### [facility] [address] [place] [address] Dr. Shawn Jett ALP [Catalytic activity/Vol] 84 U/L Normal 46-116 [facility] Comment on above: Performed By: #### F T4 #### [facility] [address] [place] [address] Dr. Shawn Jett ALT [Catalytic activity/Vol] 21 U/L Normal 14-59 [facility] Comment on above: Performed By: #### F T4 #### [facility] [address] [place] [address] Dr. Shawn Jett Anion gap [Moles/Vol] 15.5 mmol/L Normal [facility] Comment on above: Performed By: #### F T4 #### [facility] [address] [place] [address] Dr. Shawn Jett AST [Catalytic activity/Vol] 23 U/L Normal 15-37 [facility] Comment on above: Performed By: #### F T4 #### [facility] [address] [place] [address] Dr. Shawn Jett Bilirubin [Mass/Vol] 0.5 mg/dL Normal 0.2-1.0 [facility] Comment on above: Performed By: #### F T4 #### [facility] [address] [address] [address] Shawn Jett Calcium [Mass/Vol] 10.1 mg/dL Normal 8.5-10.1 [facility] Comment on above: Performed By: #### F T4 #### [facility] [address] [place] [address] Dr. Shawn Jett Chloride [Moles/Vol] 104 mmol/L Normal 98-107 [facility] Comment on above: Performed By: #### F T4 #### [facility] [address] [place] [address] Dr. Shawn Jett CO2 [Moles/Vol] 25.1 mmol/L Normal 21.0-32.0 [facility] Comment on above: Performed By: #### F T4 #### [facility] [address] [place] [address] Dr. Shawn Jett Creatinine [Mass/Vol] 0.83 mg/dL Normal 0.55-1.02 [facility] Comment on above: Performed By: #### F T4 #### [facility] [address] [place] [address] Dr. Shawn Jett EGFR-AF MOLDOVAN >60 Normal >=60 [facility] Comment on above: Performed By: #### F T4 #### [facility] [address] [place] [address] Dr. Shawn Jett EGFR-NON AF MOLDOVAN >60 Normal >=60 [facility] Comment on above: Performed By: #### F T4 #### [facility] [address] [place] [address] Dr. Shawn Jett Globulin (S) [Mass/Vol] 4.2 g/dL Normal [facility] Comment on above: Performed By: #### F T4 #### [facility] [address] [address] [address] Shawn Jett Glucose [Mass/Vol] 109 mg/dL Critically high 74-106 [facility] Comment on above: Performed By: #### F T4 #### [facility] [address] [address] [address] Shawn Jett Potassium [Moles/Vol] 3.6 mmol/L Normal 3.5-5.1 [facility] Comment on above: Performed By: #### F T4 #### [facility] [address] [address] [address] Shawn Jett Protein [Mass/Vol] 8.3 g/dL Critically high 6.4-8.2 [facility] Comment on above: Performed By: #### F T4 #### [facility] [address] [address] [address] Shawn Jett Sodium [Moles/Vol] 141 mmol/L Normal 136-145 [facility] Comment on above: Performed By: #### F T4 #### [facility] [address] [address] [address] Shawn Jett Urea nitrogen [Mass/Vol] 5.0 mg/dL Critically low 7.0-18.0 [facility] Comment on above: Performed By: #### F T4 #### [facility] [address] [address] [address] Shawn Jett Urea nitrogen/Creatinin e [Mass ratio] 6.0 mg/mg Normal [facility] Comment on above: Performed By: #### F T4 #### [facility] [address] [address] [address] Shawn Jett TROPONIN, HIGH SENSITIVITYon 09-03-2022 HSTROP 8.8 pg/mL Normal 4.0-51.3 [facility] Comment on above: Result Comment: CUT- OFF POINTS HAVE BEEN ESTABLISHED BASED ON THE FOURTH UNIVERSAL DEFINITIONS OF MYOCARDIAL INFARCTION. THE UPPER REFERENCE LIMIT (URL) OF TROPONIN, DEFINED THE 99TH PERCENTILE OF cTnI DISTRIBUTION IN A REFERENCE POPULATION, HAS BEEN CONFIRMED THE DECISION THRESHOLD FOR [place] DIAGNOSIS. Performed By: #### F T4 #### [facility] [address] [place], [place] [address] Dr. Shawn Jett TSHon 09-03-2022 TSH 1.076 uIU/mL Normal 0.358-3.740 [facility] Comment on above: Performed By: #### F T4 #### [facility] [address] [place], [place] [address] Dr. Shawn Jett XR CHEST 1 Von 09-03-2022 XR CHEST 1 V EXAM: XR CHEST 1 V a t 1612 hours HISTORY: Paroxysmal atrial fibrillation with rapid ventricular response COMPARISON: None. TECHNIQUE: AP upright portable chest x-ray FINDINGS: The heart is not enlarged and the vasculature is not distended. No acute infiltrate, effusion or pneumothorax is identified. The osseous structures are grossly intact. IMPRESSION: No acute infiltrate or evidence of cardiac decompensation. Direct comparison with a previous study may be helpful in determining the chronicity of these findings. Electronically authenticated by: DIEGO ROMERO Date: 2022-09-03 16:45 Normal [facility] US CAROTID ART BILon 023 US CAROTID ART RADHA EXAMINATION: US RO TID ART RADHA HISTORY: Cerebrovascular disease COMPARISON: No relevant comparison available. TECHNIQUE: Duplex Doppler ultrasound analysis of carotid and vertebral arteries. . Bilateral carotid arterial duplex examination was performed using B-mode, color flow and spectral analysis. Carotid stenosis is reported according to validated velocity parameters, similar to NASCET criteria. FINDINGS: RIGHT CAROTID ARTERY No atherosclerotic plaque Subclavian: PSV: 114.6 cm/s cm/s EDV: 9.3 cm/s cm/s CCA: Prox: PSV: 61.8 cm/s cm/s EDV: 11.3 cm/s cm/s Mid: PSV: 55.7 cm/s cm/s EDV: 14.7 cm/s cm/s Distal: PSV: 56.9 cm/s cm/s EDV: 14.2 cm/s cm/s BULB: PSV: 32.4 cm/s cm/s EDV: 10.0 cm/s cm/s ICA: Prox: PSV: 58.1 cm/s cm/s EDV: 18.6 cm/s cm/s Mid: PSV: 60.3 cm/s cm/s EDV: 20.8 cm/s cm/s Distal: PSV: 58.1 cm/s cm/s EDV: 14.2 cm/s cm/s ECA: PSV: 63.6 cm/s cm/s EDV: 6.0 cm/s cm/s VERTEBRAL: PSV: 44.4 cm/s cm/s EDV: 13.9 cm/s cm/s ICA/CCA ratio: PSV: 1.1 EDV: 1.5 LEFT CAROTID ARTERY No atherosclerotic plaque Subclavian: PSV: 72.3 cm/s cm/s EDV: 6.3 cm/s CCA: Prox: PSV: 63.3 cm/s cm/s EDV: 15.4 cm/s Mid: PSV: 54.6 cm/s cm/s EDV: 14.5 cm/s Distal: PSV: 50.2 cm/s cm/s EDV: 15.3 cm/s BULB: PSV: 40.6 cm/s cm/s EDV: 12.7 cm/s ICA: Prox: PSV: 58.1 cm/s cm/s EDV: 19.7 cm/s Mid: PSV: 75.4 cm/s cm/s EDV: 27.0 cm/s Distal: PSV: 49.0 cm/s cm/s EDV: 19.3 cm/s ECA: PSV: 47.9 cm/s cm/s EDV: 5.1 cm/s VERTEBRAL: PSV: 43.3 cm/s cm/s EDV: 10.1 cm/s ICA/CCA ratio: PSV: 1.5 EDV: 1.8 IMPRESSION: Normal exam. 0-49% flow stenosis bilateral internal carotid arteries Spectral Doppler US Thresholds (Reference: Bismark EG, et al. Radiology 2000; 214:[id number]) Stenosis (%) PSV (cm/sec) VICA/VCCA 0-49 <150 <2.5 50-69 150-225 2.5-4.0 >70 >225 >4.0 Electronically authenticated by: CHEPE RAMÍREZ Date: 2022-06-01 11:56 Normal [facility] CBC AUTO DIFFon 05-23-2022 BASO # 0.0 103/ul Normal 0.0-0.1 [facility] Comment on above: Performed By: #### C BC #### [facility] [address] [place] [address] Dr. Shawn Jett Basophils/100 WBC (Bld) 0.4 % Normal 0.2-2.0 [facility] Comment on above: Performed By: #### C BC #### [facility] [address] [place] [address] Dr. Shawn Jett EO # 0.1 103/ul Normal 0.0-0.7 [facility] Comment on above: Performed By: #### C BC #### [facility] [address] [place] [address] Dr. Shawn Jett Eosinophils/100 WBC (Bld) 2.1 % Normal 0.9-7.0 [facility] Comment on above: Performed By: #### C BC #### [facility] [address] [place] [address] Dr. Shawn Jett Erythrocyte distribution width (RBC) [Ratio] 11.8 % Normal 11.0-15.0 [facility] Comment on above: Performed By: #### C BC #### [facility] [address] [place] [address] Dr. Shawn Jett Hematocrit (Bld) [Volume fraction] 36.2 % Normal 36.0-48.0 [facility] Comment on above: Performed By: #### C BC #### [facility] [address] [place] [address] Dr. Shawn Jett Hemoglobin (Bld) [Mass/Vol] 13.0 g/dL Normal 12.0-16.0 [facility] Comment on above: Performed By: #### C BC #### [facility] [address] [place] [address] Dr. Shawn Jett IG # 0.02 10e3/ul Normal 0.00-0.03 [facility] Comment on above: Performed By: #### C BC #### [facility] [address] [place] [address] Dr. Shawn Jett IG % 0.4 % Normal 0.0-0.5 [facility] Comment on above: Performed By: #### C BC #### [facility] [address] [place] [address] Dr. Shawn Jett LYMPH # 1.3 103/ul Normal 1.2-3.8 [facility] Comment on above: Performed By: #### C BC #### [facility] [address] [place] [address] Dr. Shawn Jett Lymphocytes/100 WBC (Bld) 27.5 % Normal 20.5-60.0 [facility] Comment on above: Performed By: #### C BC #### [facility] [address] [place] [address] Dr. Shawn Jett MANUAL DIFF REQ NO Normal [facility] Comment on above: Performed By: #### C BC #### [facility] [address] [place] [address] Dr. Shawn Jett MCH (RBC) [Entitic mass] 30.1 pg Normal 26.7-34.0 [facility] Comment on above: Performed By: #### C BC #### [facility] [address] [place] [address] Dr. Shawn Jett MCHC (RBC) [Mass/Vol] 35.9 g/dL Critically high 29.9-35.2 [facility] Comment on above: Performed By: #### C BC #### [facility] [address] [place] [address] Dr. Shawn Jett MCV (RBC) [Entitic vol] 83.8 fL Normal 81.0-99.0 [facility] Comment on above: Performed By: #### C BC #### [facility] [address] [place] [address] Dr. Shawn Jett MONO # 0.5 103/ul Normal 0.3-0.8 [facility] Comment on above: Performed By: #### C BC #### [facility] [address] [place] [address] Dr. Shawn Jett Monocytes/100 WBC (Bld) 9.9 % Normal 1.7-12.0 [facility] Comment on above: Performed By: #### C BC #### [facility] [address] [address] [address] Shanw Jett NEUT # 2.8 103/ul Normal 1.4-6.5 [facility] Comment on above: Performed By: #### C BC #### [facility] [address] [address] [address] Shawn Jett Neutrophils/100 WBC (Bld) 59.7 % Normal 43.0-75.0 [facility] Comment on above: Performed By: #### C BC #### [facility] [address] [address] [address] Shawn Jett Platelet mean volume (Bld) [Entitic vol] 8.8 fL Critically low 9.5-13.5 [facility] Comment on above: Performed By: #### C BC #### [facility] [address] [place] [address] Dr. Shawn Jett PLT 188 103/ul Normal 150-450 [facility] Comment on above: Performed By: #### C BC #### [facility] [address] [place] [address] Dr. Shawn Jett RBC 4.32 106/ul Normal 4.20-5.40 [facility] Comment on above: Performed By: #### C BC #### [facility] [address] [place] [address] Dr. Shawn Jett WBC 4.7 103/ul Normal 4.0-11.0 [facility] Comment on above: Performed By: #### C BC #### [facility] [address] [place] [address] Dr. Shawn Jett CRPon 05-23-2022 CRP [Mass/Vol] mg/L Normal <=1.0 [facility] Comment on above: Performed By: #### L IPID, CMP, CRP #### [facility] [address] [place] [address] Dr. Shawn Jett LIPID PROFILEon 05-23-2022 CHOL-HDL RATIO NORM SEE BELOW Normal [facility] Comment on above: Result Comment: 3.3 - 4.4 LOW RISK 4.4 - 7.1 AVERAGE RISK 7.1 - 11.0 MODERATE RISK >11.0 HIGH RISK Performed By: #### L IPID, CMP, CRP #### [facility] [address] [address] [address] Shawn Jett Cholesterol [Mass/Vol] 232 mg/dL Critically high <=200 [facility] Comment on above: Performed By: #### L IPID, CMP, CRP #### [facility] [address] [address] [address] Shawn Jett Cholesterol in HDL [Mass/Vol] 63 mg/dL Critically high 40-60 [facility] Comment on above: Performed By: #### L IPID, CMP, CRP #### [facility] [address] [place] [address] Dr. Shawn Jett Cholesterol in LDL [Mass/Vol] 140.0 mg/dL Normal [facility] Comment on above: Performed By: #### L IPID, CMP, CRP #### [facility] [address] [place] [address] Dr. Shawn Jett Cholesterol.total/ Cholesterol in HDL [Mass ratio] 3.7 {ratio} Normal [facility] Comment on above: Performed By: #### L IPID, CMP, CRP #### [facility] [address] [place] [address] Dr. Shawn Jett HDL NORMAL > or = 60 mg/dl - LO W CARDIOVASCULAR RISK <40 mg/dl - HIGH CARDIOVASCULAR RISK Normal [facility] Comment on above: Performed By: #### L IPID, CMP, CRP #### [facility] [address] [place] [address] Dr. Shawn Jett LDL CALC NORMAL SEE BELOW Normal [facility] Comment on above: Result Comment: <100 mg/dl OPTIMAL 100 - 129 mg/dl NEAR OR ABOVE OPTIMAL 130 - 159 mg/dl BORDERLINE HIGH 160 - 189 mg/dl HIGH >190 mg/dl VERY HIGH Performed By: #### L IPID, CMP, CRP #### [facility] [address] [place] [address] Dr. Shawn Jett Triglyceride [Mass/Vol] 145 mg/dL Normal <=150 [facility] Comment on above: Performed By: #### L IPID, CMP, CRP #### [facility] [address] [place] [address] Dr. Shawn Jett VLDL CALC 29.0 mg/dL Normal [facility] Comment on above: Performed By: #### L IPID, CMP, CRP #### [facility] [address] [place] [address] Dr. Shawn Jett PROF 14(COMP METB)on 023 Albumin [Mass/Vol] 3.5 g/dL Normal 3.4-5.0 [facility] Comment on above: Performed By: #### L IPID, CMP, CRP #### [facility] [address] [place] [address] Dr. Shawn Jett Albumin/Globulin [Mass ratio] 1.0 {ratio} Normal [facility] Comment on above: Performed By: #### L IPID, CMP, CRP #### [facility] [address] [place] [address] Dr. Shawn Jett ALP [Catalytic activity/Vol] 75 U/L Normal 46-116 [facility] Comment on above: Performed By: #### L IPID, CMP, CRP #### [facility] [address] [place] [address] Dr. Shawn Jett ALT [Catalytic activity/Vol] 18 U/L Normal 14-59 [facility] Comment on above: Performed By: #### L IPID, CMP, CRP #### [facility] [address] [place] [address] Dr. Shawn Jett Anion gap [Moles/Vol] 12.2 mmol/L Normal [facility] Comment on above: Performed By: #### L IPID, CMP, CRP #### [facility] [address] [place] [address] Dr. Shawn Jett AST [Catalytic activity/Vol] 22 U/L Normal 15-37 [facility] Comment on above: Performed By: #### L IPID, CMP, CRP #### [facility] [address] [place] [address] Dr. Shawn Jett Bilirubin [Mass/Vol] 0.3 mg/dL Normal 0.2-1.0 [facility] Comment on above: Performed By: #### L IPID, CMP, CRP #### [facility] [address] [place] [address] Dr. Shawn Jett Calcium [Mass/Vol] 9.5 mg/dL Normal 8.5-10.1 [facility] Comment on above: Performed By: #### L IPID, CMP, CRP #### [facility] [address] [place] [address] Dr. Shawn Jett Chloride [Moles/Vol] 107 mmol/L Normal 98-107 [facility] Comment on above: Performed By: #### L IPID, CMP, CRP #### [facility] [address] [place] [address] Dr. Shawn Jett CO2 [Moles/Vol] 28.1 mmol/L Normal 21.0-32.0 [facility] Comment on above: Performed By: #### L IPID, CMP, CRP #### [facility] [address] [place] [address] Dr. Shawn Jett Creatinine [Mass/Vol] 0.71 mg/dL Normal 0.55-1.02 [facility] Comment on above: Performed By: #### L IPID, CMP, CRP #### [facility] [address] [place] [address] Dr. Shawn Jett EGFR-AF MOLDOVAN >60 Normal >=60 [facility] Comment on above: Performed By: #### L IPID, CMP, CRP #### [facility] [address] [place] [address] Dr. Shawn Jett EGFR-NON AF MOLDOVAN >60 Normal >=60 [facility] Comment on above: Performed By: #### L IPID, CMP, CRP #### [facility] [address] [place] [address] Dr. Shawn Jett Globulin (S) [Mass/Vol] 3.6 g/dL Normal [facility] Comment on above: Performed By: #### L IPID, CMP, CRP #### [facility] [address] [address] [address] Shawn Jett Glucose [Mass/Vol] 100 mg/dL Normal 74-106 [facility] Comment on above: Performed By: #### L IPID, CMP, CRP #### [facility] [address] [address] [address] Shawn Jett Potassium [Moles/Vol] 4.3 mmol/L Normal 3.5-5.1 [facility] Comment on above: Performed By: #### L IPID, CMP, CRP #### [facility] [address] [address] [address] Shawn Jett Protein [Mass/Vol] 7.1 g/dL Normal 6.4-8.2 [facility] Comment on above: Performed By: #### L IPID, CMP, CRP #### [facility] [address] [address] [address] Shawn Jett Sodium [Moles/Vol] 143 mmol/L Normal 136-145 [facility] Comment on above: Performed By: #### L IPID, CMP, CRP #### [facility] [address] [address] [address] Shawn Jett Urea nitrogen [Mass/Vol] 8.0 mg/dL Normal 7.0-18.0 [facility] Comment on above: Performed By: #### L IPID, CMP, CRP #### [facility] [address] [address] [address] Shawn Jett Urea nitrogen/Creatinin e [Mass ratio] 11.3 mg/mg Normal [facility] Comment on above: Performed By: #### L IPID, CMP, CRP #### [facility] [address] [address] [address] Shawn Jett Covid-19 PCR ([facility])on 02-18 SARS-CoV-2 (COVID-19) RNA AL+probe Ql (Unsp spec) Not detected Normal NOT DETECTED [facility] Comment on above: Result Comment: This test is not yet approved or cleared by the [place] FDA. When there are no FDA-approved or cleared tests available, and other criteria are met, FDA can make tests available under an emergency access mechanism called an Emergency Use Authorization (EUA). The EUA for this test is supported by the [employer] [place] of Health and Human Service's (HHS's) declaration that circumstances exist to justify the emergency use of in vitro diagnostics for the detection and/or diagnosis of the virus that causes COVID-19. This EUA will remain in effect (meaning this test can be used) for the duration of the COVID-19 declaration justifying emergency of IVDs, unless it is terminated or revoked by FDA (after which the test may no longer be used). When diagnostic testing is negative, the possibility of a false negative should be considered in the context of a patient's recent exposures and the presence of clinical signs and symptoms consistent with SARS-CoV-2. Performed By: #### F T4 #### [facility] [address] [place] [address] Dr. Shawn Jett CBC AUTO DIFFon 01-06-2022 BASO # 0.0 103/ul Normal 0.0-0.1 [facility] Comment on above: Performed By: #### C BC #### [facility] [address] [place] [address] Dr. Shawn Jett Basophils/100 WBC (Bld) 0.3 % Normal 0.2-2.0 [facility] Comment on above: Performed By: #### C BC #### [facility] [address] [place] [address] Dr. Shawn Jett EO # 0.1 103/ul Normal 0.0-0.7 [facility] Comment on above: Performed By: #### C BC #### [facility] [address] [place] [address] Dr. Shawn Jett Eosinophils/100 WBC (Bld) 0.8 % Critically low 0.9-7.0 [facility] Comment on above: Performed By: #### C BC #### [facility] [address] [place] [address] Dr. Shawn Jett Erythrocyte distribution width (RBC) [Ratio] 12.2 % Normal 11.0-15.0 [facility] Comment on above: Performed By: #### C BC #### [facility] [address] [place] [address] Dr. Shawn Jett Hematocrit (Bld) [Volume fraction] 44.0 % Normal 36.0-48.0 [facility] Comment on above: Performed By: #### C BC #### [facility] [address] [place] [address] Dr. Shawn Jett Hemoglobin (Bld) [Mass/Vol] 14.2 g/dL Normal 12.0-16.0 [facility] Comment on above: Performed By: #### C BC #### [facility] [address] [place] [address] Dr. Shawn Jett IG # 0.07 10e3/ul Critically high 0.00-0.03 [facility] Comment on above: Performed By: #### C BC #### [facility] [address] [place] [address] Dr. Shawn Jett IG % 0.8 % Critically high 0.0-0.5 [facility] Comment on above: Performed By: #### C BC #### [facility] [address] [place] [address] Dr. Shawn Jett LYMPH # 2.5 103/ul Normal 1.2-3.8 [facility] Comment on above: Performed By: #### C BC #### [facility] [address] [place] [address] Dr. Shawn Jett Lymphocytes/100 WBC (Bld) 27.5 % Normal 20.5-60.0 [facility] Comment on above: Performed By: #### C BC #### [facility] [address] [place] [address] Dr. Shawn Jett MANUAL DIFF REQ NO Normal [facility] Comment on above: Performed By: #### C BC #### [facility] [address] [place] [address] Dr. Shawn Jett MCH (RBC) [Entitic mass] 30.6 pg Normal 26.7-34.0 [facility] Comment on above: Performed By: #### C BC #### [facility] [address] [place] [address] Dr. Shawn Jett MCHC (RBC) [Mass/Vol] 32.3 g/dL Normal 29.9-35.2 [facility] Comment on above: Performed By: #### C BC #### [facility] [address] [place] [address] Dr. Shawn Jett MCV (RBC) [Entitic vol] 94.8 fL Normal 81.0-99.0 [facility] Comment on above: Performed By: #### C BC #### [facility] [address] [place] [address] Dr. Shawn Jett MONO # 0.8 103/ul Normal 0.3-0.8 [facility] Comment on above: Performed By: #### C BC #### [facility] [address] [place] [address] Dr. Shawn Jett Monocytes/100 WBC (Bld) 8.9 % Normal 1.7-12.0 [facility] Comment on above: Performed By: #### C BC #### [facility] [address] [place] [address] Dr. Shawn Jett NEUT # 5.5 103/ul Normal 1.4-6.5 [facility] Comment on above: Performed By: #### C BC #### [facility] [address] [place] [address] Dr. Shawn Jett Neutrophils/100 WBC (Bld) 61.7 % Normal 43.0-75.0 [facility] Comment on above: Performed By: #### C BC #### [facility] [address] [place], [place] [id number] Dr. Shawn Jett Platelet mean volume (Bld) [Entitic vol] 9.1 fL Critically low 9.5-13.5 [facility] Comment on above: Performed By: #### C BC #### [facility] [address] [place] [address] Dr. Shawn Jett PLT 265 103/ul Normal 150-450 [facility] Comment on above: Performed By: #### C BC #### [facility] [address] [place], [place] [id number] Dr. Shawn Jett RBC 4.64 106/ul Normal 4.20-5.40 [facility] Comment on above: Performed By: #### C BC #### [facility] [address] [place] [address] Dr. Shawn Jett WBC 8.9 103/ul Normal 4.0-11.0 [facility] Comment on above: Performed By: #### C BC #### [facility] [address] [place] [address] Dr. Shawn Jett PROF CHEM 8 (BAS METB)on Anion gap [Moles/Vol] 14.5 mmol/L Normal [facility] Comment on above: Performed By: #### B MP #### [facility] [address] [place] [address] Dr. Shawn Jett Calcium [Mass/Vol] 10.1 mg/dL Normal 8.5-10.1 [facility] Comment on above: Performed By: #### B MP #### [facility] [address] [place] [address] Dr. Shawn Jett Chloride [Moles/Vol] 101 mmol/L Normal 98-107 [facility] Comment on above: Performed By: #### B MP #### [facility] [address] [place] [address] Dr. Shawn Jett CO2 [Moles/Vol] 26.2 mmol/L Normal 21.0-32.0 [facility] Comment on above: Performed By: #### B MP #### [facility] [address] [place] [address] Dr. Shawn Jett Creatinine [Mass/Vol] 0.84 mg/dL Normal 0.55-1.02 [facility] Comment on above: Performed By: #### B MP #### [facility] [address] [place] [address] Dr. Shawn Jett EGFR-AF MOLDOVAN >60 Normal >=60 [facility] Comment on above: Performed By: #### B MP #### [facility] [address] [place] [address] Dr. Shawn Jett EGFR-NON AF MOLDOVAN >60 Normal >=60 [facility] Comment on above: Performed By: #### B MP #### [facility] [address] [address] [address] Shawn Jett Glucose [Mass/Vol] 91 mg/dL Normal 74-106 [facility] Comment on above: Performed By: #### B MP #### [facility] [address] [address] [address] Shawn Jett Potassium [Moles/Vol] 3.7 mmol/L Normal 3.5-5.1 [facility] Comment on above: Performed By: #### B MP #### [facility] [address] [address] [address] Shawn Jett Sodium [Moles/Vol] 138 mmol/L Normal 136-145 [facility] Comment on above: Performed By: #### B MP #### [facility] [address] [address] [address] Shawn Jett Urea nitrogen [Mass/Vol] 16.0 mg/dL Normal 7.0-18.0 [facility] Comment on above: Performed By: #### B MP #### [facility] [address] [address] [address] Shawn Jett Urea nitrogen/Creatinin e [Mass ratio] 19.0 mg/mg Normal [facility] Comment on above: Performed By: #### B MP #### [facility] [address] [address] [address] Shawn Jett Vital Signs Date Time Vital Sign Value Performing Clinician Barrett sanchez 11-13-2023 14:53-0400 Diastolic blood pressure 60 mm[Hg] Elvis Adlogixdallasus [facility] 11-13-2023 14:53-0400 Heart rate 62 /min Elvis Adlogixdallasus [facility] 11-13-2023 14:53-0400 Respiratory rate 99 /min Elvis Kirnus [facility] 11-13-2023 14:53-0400 SaO2% (BldA) [Mass fraction] 16 % Elvis Velardenus [facility] 11-13-2023 14:53-0400 Systolic blood pressure 108 mm[Hg] Elvis Velardenus [facility] 10-28-2023 08:20-0400 Blood Pressure Location Lisa Lue [facility] 10-28-2023 08:20-0400 Diastolic blood pressure 74 mm[Hg] Lisa Lue [facility] 10-28-2023 08:20-0400 Heart rate 70 /min Lisa Lue [facility] 10-28-2023 08:20-0400 Respiratory rate 16 /min Lias Lue [facility] 10-28-2023 08:20-0400 Systolic blood pressure 132 mm[Hg] Lisa Lue [facility] 02-12-2023 13:41-0400 Diastolic blood pressure 62 mm[Hg] Russell Cardenas [facility] 02-12-2023 13:41-0400 Heart rate 83 /min Russell Cardenas [facility] 02-12-2023 13:41-0400 SaO2% (BldA) [Mass fraction] 97 % Russell Cardenas [facility] 02-12-2023 13:41-0400 Systolic blood pressure 122 mm[Hg] Russell Cardenas [facility] 12-04-2022 11:25-0400 Diastolic blood pressure 68 mm[Hg] Russell Cardenas [facility] 12-04-2022 11:25-0400 Heart rate 74 /min Russell Christofferson [facility] 12-04-2022 11:25-0400 SaO2% (BldA) [Mass fraction] 98 % Russell Christofferson [facility] 12-04-2022 11:25-0400 Systolic blood pressure 132 mm[Hg] Russell Christofferson [facility] 10-27-2022 13:22-0400 Diastolic blood pressure 82 mm[Hg] Russell Christofferson [facility] 10-27-2022 13:22-0400 Heart rate 62 /min Russell Christofferson [facility] 10-27-2022 13:22-0400 SaO2% (BldA) [Mass fraction] 99 % Russell Danielofferson [facility] 10-27-2022 13:22-0400 Systolic blood pressure 140 mm[Hg] Russell Christofferson [facility] 01-28-2022 14:41-0400 Blood Pressure Location Alena MORALES [facility] 01-28-2022 14:41-0400 Diastolic blood pressure 76 mm[Hg] Alena MORALES [facility] 01-28-2022 14:41-0400 Heart rate 68 /min Alena MORALES [facility] 01-28-2022 14:41-0400 Respiratory rate 16 /min Alena MORALES [facility] 01-28-2022 14:41-0400 Systolic blood pressure 122 mm[Hg] Alena MORALES [facility] Encounters Encounter Date Encounter Type Care Provider Facility Start: 11-18-2023 End: 11-18-2023 ambulatory Lisa M. Lue Facility:[id number] Start: 11-18-2023 End: 11-18-2023 Off-Site Lisa Ramírez [facility] Start: 11-13-2023 End: 11-14-2023 Pre-admission assessment Elvis Gloria Syddallas [facility] Start: 11-13-2023 End: 11-14-2023 Preprocedural examination done Elvis Castro Adlogixdallas [facility] Start: 11-13-2023 End: 11-13-2023 ambulatory XXXX NONE Facility:[facility] Start: 10-28-2023 End: 10-28-2023 [facility] Start: 10-28-2023 End: 10-28-2023 Patient encounter procedure Lisa Ramírez [facility] [place] Start: 10-27-2023 End: 11-11-2023 ambulatory Román Feliz Facility:[facility] [place] Start: 10-20-2023 ambulatory Lisa MChiquita Ibarramarlin Facility:[facility] Start: 10-06-2023 ambulatory Rmoán Feliz Facility :[facility] [place] Start: 09-25-2023 End: 09-25-2023 ambulatory Román Feliz Facility:[facility] [place] Start: 09-22-2023 End: 10-13-2023 ambulatory Román Feliz Facility:[facility] Start: 09-15-2023 End: 09-15-2023 ambulatory Román Feliz Facility:[facility] Start: 09-08-2023 End: 09-08-2023 ambulatory JONATHAN JOY Not Available Start: 08-21-2023 End: 09-07-2023 ambulatory Román Feliz Facility: [facility] Start: 08-17-2023 End: 08-17-2023 ambulatory Román Feliz Facility: [facility] [place] Start: 08-06-2023 End: 08-06-2023 Lab Drop off Román Feliz [facility] Start: 08-06-2023 End: 08-06-2023 ambulatory Román Jeri Tray Facility:[facility] Start: 07-29-2023 ambulatory Román Tray Facility:[facility] Start: 07-22-2023 End: 08-12-2023 ambulatory Román EChiquita Tray Facility:[facility] Start: 07-14-2023 End: 07-14-2023 ambulatory Román Feliz Facility:[facility] Start: 07-14-2023 End: 07-14-2023 Lab Drop off Román Feliz [facility] Start: 07-13-2023 End: 07-13-2023 ambulatory Román Wilcox Tray Facility:[facility] Start: 06-25-2023 End: 07-02-2023 ambulatory Román Wlicox Tray Facility: [facility] [place] Start: 06-23-2023 End: 06-23-2023 ambulatory Amy Lopez Facility:[facility] Start: 06-19-2023 ambulatory Rmoán Wilcox Tray Facility :[id number] Start: 06-03-2023 End: 06-03-2023 ambulatory Román Jeri Tray Facility: [facility] [place] Start: 05-12-2023 End: 05-12-2023 ambulatory VANESA RODRIGUEZ Not Available Start: 04-15-2023 End: 04-15-2023 ambulatory Adali Stone Facility: [facility] [place] Start: 04-08-2023 End: 04-08-2023 ambulatory Román Feliz Facility: [facility] Start: 03-31-2023 End: 04-01-2023 ambulatory VANESA RODRIGUEZ Not Available Start: 02-18-2023 End: 02-18-2023 ambulatory Román Feliz Facility:[facility] Start: 02-12-2023 End: 02-12-2023 ambulatory XXXX NONE Facility:[facility] Start: 02-12-2023 End: 02-12-2023 Patient encounter procedure Russell Cardenas [facility] Start: 02-05-2023 End: 02-06-2023 Evaluation and management of inpatient Fidel Esteban Facility:[facility] Start: 02-02-2023 End: 02-05-2023 ambulatory [facility] Facility:[facility] Start: 01-29-2023 End: 01-30-2023 Pre-admission assessment Russell Cardenas [facility] Start: 01-14-2023 End: 01-14-2023 ambulatory [facility] Facility:[facility] Start: 01-08-2023 End: 01-09-2023 ambulatory [facility] Facility:[facility] Start: 01-07-2023 End: 01-07-2023 ambulatory Román Feliz Facility:[facility] Start: 12-31-2022 End: 01-01-2023 ambulatory RICK AVILA Facility:[facility] Start: 12-04-2022 End: 12-04-2022 ambulatory XXXX NONE Facility:[facility] Start: 12-04-2022 End: 12-04-2022 Patient encounter procedure Russell Cardenas [facility] Start: 10-27-2022 End: 10-27-2022 Patient encounter procedure Russell Cardenas [facility] Start: 10-16-2022 End: 10-16-2022 Lab Drop off Rmoán Feliz [facility] Start: 09-03-2022 End: 09-03-[address] RICK AVILA . Facility:[facility] Start: 08-13-2022 End: 08-13-[address] PUJA HAGEN . Facility:[facility] Start: 05-30-2022 End: 05-31-[address] RICK AVILA . Facility:[facility] Start: 05-23-2022 End: 05-24-[address] RICK AVILA . Facility:[facility] Start: 03-06-2022 Encounter for preprocedural laboratory examination DR ALENA MORALES . [facility] Start: 03-05-2022 End: 03-05-[address] RICK AVILA . Facility:[facility] Start: 03-03-2022 End: 03-04-[address] ALENA MORALES . Facility:[facility] Start: 03-03-2022 End: 03-04-2022 Encounter for preprocedural laboratory examination DR ALENA MORALES . Facility: Start: 01-28-2022 End: 01-28-2022 Patient encounter procedure Alena ANNEL [facility] [place] Start: 01-06-2022 End: 01-07-[address] RICK AVILA . Facility: Procedures Date Procedure Procedure Detail Performing Clinician Start: 07-07-2016 Repair of hip Alena NILL Start: 11-23-2014 Colonoscopy Alena NILL Start: 11-23-2014 Esophagogastroduodenoscopy Alena NILL Cholecystectomy Alena NILL Colonoscopy Alena NILL Ligation of fallopian tube M ichpavithra NILL Repair of hip Alena NILL Total hysterectomy v ia vaginal approach Alena ANNEL Plan of Treatment Date Care Activity Detail Author Start: 04-27-2024 ambulatory Ambulatory Facility:[facility] Immunizations Immunization Date Immunization Notes Care Provider Fa cility 05-25-2023 zoster vaccine recombinant Roámn Ross [facility] 01-07-2023 influenza, high dose seasonal, preservative-free Russell Cardenas [facility] 01-07-2023 zoster vaccine recombinant Román Feliz [facility] 02-14-2021 influenza virus vaccine, unspecified formulation Román Feliz [facility] 02-14-2021 SARS-CoV-2 (COVID-19) mRNA BNT-162b2 vax Román Feliz [facility] 06-10-2020 SARS-CoV-2 (COVID-19) mRNA BNT-162b2 vax Román Feliz [facility] Comment on above: Result Comment: 2022: [id number] 05-23-2020 SARS-CoV-2 (COVID-19) mRNA BNT-162b2 vax Román Feliz [facility] Comment on above: Result Comment: 2022: [id number] 01-16-2017 influenza virus vaccine, unspecified formulation Román Feliz [facility] 12-19-2016 influenza virus vaccine, unspecified formulation Román Feliz [facility] 01-22-2016 influenza virus vaccine, unspecified formulation Román Feliz [facility] 12-24-2015 influenza virus vaccine, unspecified formulation Román Feliz [facility] 02-01-2015 influenza virus vaccine, unspecified formulation Románpiotr Feliz [facility] 02-17-2014 influenza virus vaccine, unspecified formulation Románpiotr Feliz [facility] 02-16-2013 influenza virus vaccine, unspecified formulation Román Feliz [facility] NEGATED: Highlighted row has not occurred!09-03-2022 influenza virus vaccine, unspecified formulation Román Feliz [facility] Payers Date Payer Category Payer Medicaid [id number] 1960 Unknown [id number] 1954 Unknown [id number] 2.16.84 0.1.081243.3.579.2.593 1954 Unknown [id number] 2.16.84 0.1.675789.3.579.2.593 1954 Unknown [id number] 2.16.84 0.1.575902.3.579.2.593 1954 Unknown [id number] 2.16.84 0.1.222654.3.579.2.593 1954 Unknown [id number] 2.16.84 0.1.346730.3.579.2.593 1954 Unknown [id number] 2.16.84 0.1.291872.3.579.2.593 1954 Unknown [id number] 2.16.84 0.1.973736.3.579.2.593 1954 Unknown [id number] 2.16.8 40.1.059876.3.579.2.718 1954 Unknown [id number] 2.16.8 40.1.052190.3.579.2.718 1954 Unknown [id number] 2.16.8 40.1.914771.3.579.2.718 1954 Unknown [id number] 2.16.8 40.1.164594.3.579.2.718 1954 Unknown [id number] 2.16.84 0.1.872518.3.579.2.1259 1954 Unknown [id number] 2.16.84 0.1.602334.3.579.2.1259 1954 Unknown [id number] 2.16.840 .1.458850.3.579.2.1259 1954 Unknown [id number] 2.16.840 .1.741104.3.579.2.1259 1954 Unknown [id number] 2.16.8 40.1.467317.3.579.2.727 1954 Unknown [id number] 2.16.8 40.1.949358.3.579.2.727 1954 Unknown [id number] 2.16.8 40.1.504721.3.579.2.727 1954 Unknown [id number] 2.16.8 40.1.317629.3.579.2.727 1954 Unknown [id number] 2.16.8 40.1.045282.3.579.2.727 1954 Unknown [id number] 2.16.8 40.1.359560.3.579.2.7 1954 Unknown [id number] 2.16.8 40.1.235750.3.579.2.727 1954 Unknown [id number] 2.16.8 40.1.323815.3.579.2.727 1954 Unknown [id number] 2.16.8 40.1.716792.3.579.2.727 1954 Unknown [id number] 2.16.8 40.1.807515.3.579.2.727 1954 Unknown [id number] 2.16.8 40.1.321097.3.579.2.727 1954 Unknown [id number] 2.16.8 40.1.096476.3.579.2.727 1954 Unknown [id number] 2.16.8 40.1.347670.3.579.2.727 1954 Unknown [id number] 2.16.8 40.1.950885.3.579.2.727 1954 Unknown [id number] 2.16.8 40.1.300522.3.579.2.727 1954 Unknown [id number] 2.16.8 40.1.240294.3.579.2.727 1954 Unknown [id number] 2.16.8 40.1.323561.3.579.2.727 1954 Unknown [id number] 2.16.8 40.1.899719.3.579.2.727 1954 Unknown [id number] 2.16.8 40.1.805093.3.579.2.727 1954 Unknown [id number] 2.16.8 40.1.816242.3.579.2.727 1954 Unknown [id number] 2.16.8 40.1.312271.3.579.2.727 1954 Unknown [id number] 2.16.8 40.1.878644.3.579.2.727 1954 Unknown [id number] 2.16.8 40.1.877934.3.579.2.727 1954 Unknown [id number] 2.16.8 40.1.821558.3.579.2.727 1954 Unknown [id number] 2.16.8 40.1.337472.3.579.2.727 1954 Unknown [id number] 2.16.8 40.1.376827.3.579.2.727 Social History Date Type Detail Facility Start: 01-28-2022 End: 11-13-2023 Tobacco smoking status Ex-smoker (finding) [facility] Tobacco smoking status Never [facility] Sex Assigned At Female Harsha bashir [facility] Goals Date Patient Goal Desired Activity /State 06-25-2023 Functional Status Date Assessment Result Facility 11-13-2023 Functional Status N/A [facility] 10-28-2023 Functional Status N/A [facility] 02-12-2023 Functional Status No [facility] 12-04-2022 Functional Status No [facility] 10-27-2022 Functional Status No [facility] 01-28-2022 Functional Status N/A [facility] Clinical Notes 03-05-2022 to 10-28-2023 RadiologyRadiologyRadiologyRadiologyRadiologyRadiology Note Date & Type Note Facility 10-28-2023 Hospital Discharg e instructions Patient Education 10/28/2023 08:52:59 Laser Therapy for Kidney Stones, Care After Laser Therapy for Kidney Stones, Care After This sheet gives you information about how to care for yourself after your procedure. Your health care provider may also give you more specific instructions. If you have problems or questions, contact your health care provider. What can I expect after the procedure? After the procedure, it is common to have: Pain. A burning sensation while urinating. Small amounts of blood in your urine. A need to urinate frequently. Pieces of kidney stone in your urine. Mild discomfort when urinating that may be felt in the back. You may experience this if you have a flexible tube (stent) in your ureter. Follow these instructions at home: Medicines Take dajq-vax-njlhdbr and prescription medicines only as told by your health care provider. If you were prescribed an antibiotic medicine, take it as told by your health care provider. Do not stop taking the antibiotic even if you start to feel better. Ask your health care provider if the medicine prescribed to you: ?Requires you to avoid driving or using heavy machinery. ?Can cause constipation. You may need to take actions to prevent or treat constipation, such as: ?Take kcse-nlu-awdniqh or prescription medicines. ?Eat foods that are high in fiber, such as beans, whole grains, and fresh fruits and vegetables. ?Limit foods that are high in fat and processed sugars, such as fried or sweet foods. Activity Return to your normal activities as told by your health care provider. Ask your health care provider what activities are safe for you. Do not drive for 24 hours if you were given a sedative during your procedure. General instructions If your health care provider approves, you may take a warm bath to ease discomfort and burning. Drink enough fluid to keep your urine pale yellow. Your health care provider may recommend drinking two 8 oz (237 mL) glasses of water per hour for a few hours after your procedure. You may be asked to strain your urine to collect any stone fragments that you pass. These fragments may be tested. Keep all follow-up visits as told by your health care provider. This is important. If you have a stent, you will need to return to your health care provider to have the stent removed. Contact a health care provider if you: Have pain or a burning feeling that lasts more than 2 days. Feel nauseous. Vomit more and more often. Have difficulty urinating. Have pain that gets worse or does not get better with medicine. Get help right away if: You are unable to urinate, even if your bladder feels full. You have: ?Bright red blood or blood clots in your urine. ?More blood in your urine. ?Severe pain or discomfort. ?A fever or shaking chills. ?Abdominal pain. ?Difficulty breathing. ?Swelling in your legs. This information is not intended to replace advice given to you by your health care provider. Make sure you discuss any questions you have with your health care provider. Document Revised: 08/13/2022 Document Reviewed: 12/09/2021 [employer] Patient Education 2022 [employer]. 10/28/2023 08:52:58 Laser Therapy for Kidney Stones Laser Therapy for Kidney Stones Laser therapy for kidney stones is a procedure to break up small, hard mineral deposits that form in the kidney (kidney stones). The procedure is done using a device that produces a focused beam of light (laser). The laser breaks up kidney stones into pieces that are small enough to be passed out of the body through urination or removed from the body during the procedure. You may need laser therapy if you have kidney stones that are painful or block your urinary tract. This procedure is done by inserting a tube (ureteroscope) into your kidney through the urethral opening. The urethra is the part of the body that drains urine from the bladder. In women, the urethra opens above the vaginal opening. In men, the urethra opens at the tip of the penis. The ureteroscope is inserted through the urethra, and surgical instruments are moved through the bladder and the muscular tube that connects the kidney to the bladder (ureter) until they reach the kidney. Tell a health care provider about: Any allergies you have. All medicines you are taking, including vitamins, herbs, eye drops, creams, and tlfe-ayn-gcielgg medicines. Any problems you or family members have had with anesthetic medicines. Any blood disorders you have. Any surgeries you have had. Any medical conditions you have. Whether you are or may be . What are the risks? Generally, this is a safe procedure. However, problems may occur, including: Infection. Bleeding. Allergic reactions to medicines. Damage to the urethra, bladder, or ureter. Urinary tract infection (UTI). Narrowing of the urethra (urethral stricture). Difficulty passing urine. Blockage of the kidney caused by a fragment of kidney stone. What happens before the procedure? Medicines Ask your health care provider about: ?Changing or stopping your regular medicines. This is especially important if you are taking diabetes medicines or blood thinners. ?Taking medicines such as aspirin and ibuprofen. These medicines can thin your blood. Do not take these medicines unless your health care provider tells you to take them. ?Taking vfhi-hvt-jjrlscg medicines, vitamins, herbs, and supplements. Eating and drinking Follow instructions from your health care provider about eating and drinking, which may include: 8 hours before the procedure stop eating heavy meals or foods, such as meat, fried foods, or fatty foods. 6 hours before the procedure stop eating light meals or foods, such as toast or cereal. 6 hours before the procedure stop drinking milk or drinks that contain milk. 2 hours before the procedure stop drinking clear liquids. Staying hydrated Follow instructions from your health care provider about hydration, which may include: Up to 2 hours before the procedure you may continue to drink clear liquids, such as water, clear fruit juice, black coffee, and plain tea. General instructions You may have a physical exam before the procedure. You may also have tests, such as imaging tests and blood or urine tests. If your ureter is too narrow, your health care provider may place a soft, flexible tube (stent) inside of it. The stent may be placed days or weeks before your laser therapy procedure. Plan to have someone take you home from the hospital or clinic. If you will be going home right after the procedure, plan to have someone stay with you for 24 hours. Do not use any products that contain nicotine or tobacco for at least 4 weeks before the procedure. These products include cigarettes, e-cigarettes, and chewing tobacco. If you need help quitting, ask your health care provider. Ask your health care provider: ?How your surgical site will be marked or identified. ?What steps will be taken to help prevent infection. These may include: ?Removing hair at the surgery site. ?Washing skin with a germ-killing soap. ?Taking antibiotic medicine. What happens during the procedure? An IV will be inserted into one of your veins. You will be given one or more of the following: ?A medicine to help you relax (sedative). ?A medicine to numb the area (local anesthetic). ?A medicine to make you fall asleep (general anesthetic). A ureteroscope will be inserted into your urethra. The ureteroscope will send images to a video screen in the operating room to guide your surgeon to the area of your kidney that will be treated. A small, flexible tube will be threaded through the ureteroscope and into your bladder and ureter, up to your kidney. The laser device will be inserted into your kidney through the tube. Your surgeon will pulse the laser on and off to break up kidney stones. A surgical instrument that has a tiny wire basket may be inserted through the tube into your kidney to remove the pieces of broken kidney stone. The procedure may vary among health care providers and hospitals. What happens after the procedure? Your blood pressure, heart rate, breathing rate, and blood oxygen level will be monitored until you leave the hospital or clinic. You will be given pain medicine as needed. You may continue to receive antibiotics. You may have a stent temporarily placed in your ureter. Do not drive for 24 hours if you were given a sedative during your procedure. You may be given a strainer to collect any stone fragments that you pass in your urine. Your health care provider may have these tested. This information is not intended to replace advice given to you by your health care provider. Make sure you discuss any questions you have with your health care provider. Document Revised: 08/13/2022 Document Reviewed: 12/09/2021 [employer] Patient Education 2022 [employer]. 10/28/2023 08:50:59 Kidney Stones, Gfjn-zl-Jzlz Kidney Stones Kidney stones are rock-like masses that form inside of the kidneys. Kidneys are organs that make pee (urine). A kidney stone may move into other parts of the urinary tract, including: The tubes that connect the kidneys to the bladder (ureters). The bladder. The tube that carries urine out of the body (urethra). Kidney stones can cause very bad pain and can block the flow of pee. The stone usually leaves your body (passes) through your pee. You may need to have a doctor take out the stone. What are the causes? Kidney stones may be caused by: A condition in which certain glands make too much parathyroid hormone (primary hyperparathyroidism). A buildup of a type of crystals in the bladder made of a chemical called uric acid. The body makes uric acid when you eat certain foods. Narrowing (stricture) of one or both of the ureters. A kidney blockage that you were born with. Past surgery on the kidney or the ureters, such as gastric bypass surgery. What increases the risk? You are more likely to develop this condition if: You have had a kidney stone in the past. You have a family history of kidney stones. You do not drink enough water. You eat a diet that is high in protein, salt (sodium), or sugar. You are overweight or very overweight (obese). What are the signs or symptoms? Symptoms of a kidney stone may include: Pain in the side of the belly, right below the ribs (flank pain). Pain usually spreads (radiates) to the groin. Needing to pee often or right away (urgently). Pain when going pee (urinating). Blood in your pee (hematuria). Feeling like you may vomit (nauseous). Vomiting. Fever and chills. How is this treated? Treatment depends on the size, location, and makeup of the kidney stones. The stones will often pass out of the body through peeing. You may need to: Drink more fluid to help pass the stone. In some cases, you may be given fluids through an IV tube put into one of your veins at the hospital. Take medicine for pain. Make changes in your diet to help keep kidney stones from coming back. Sometimes, medical procedures are needed to remove a kidney stone. This may involve: A procedure to break up kidney stones using a beam of light (laser) or shock waves. Surgery to remove the kidney stones. Follow these instructions at home: Medicines Take umpn-cge-xcteetj and prescription medicines only as told by your doctor. Ask your doctor if the medicine prescribed to you requires you to avoid driving or using heavy machinery. Eating and drinking Drink enough fluid to keep your pee pale yellow. You may be told to drink at least 8 10 glasses of water each day. This will help you pass the stone. If told by your doctor, change your diet. This may include: ?Limiting how much salt you eat. ?Eating more fruits and vegetables. ?Limiting how much meat, poultry, fish, and eggs you eat. Follow instructions from your doctor about eating or drinking restrictions. General instructions Collect pee samples as told by your doctor. You may need to collect a pee sample: ?24 hours after a stone comes out. ?8 12 weeks after a stone comes out, and every 6 12 months after that. Strain your pee every time you pee (urinate), for as long as told. Use the strainer that your doctor recommends. Do not throw out the stone. Keep it so that it can be tested by your doctor. Keep all follow-up visits as told by your doctor. This is important. You may need follow-up tests. How is this prevented? To prevent another kidney stone: Drink enough fluid to keep your pee pale yellow. This is the best way to prevent kidney stones. Eat healthy foods. Avoid certain foods as told by your doctor. You may be told to eat less protein. Stay at a healthy weight. Where to find more information National Kidney Foundation (NKF): www.kidney.org [facility] (UCF): www.urologyhealth.org Contact a doctor if: You have pain that gets worse or does not get better with medicine. Get help right away if: You have a fever or chills. You get very bad pain. You get new pain in your belly (abdomen). You pass out (faint). You cannot pee. Summary Kidney stones are rock-like masses that form inside of the kidneys. Kidney stones can cause very bad pain and can block the flow of pee. The stones will often pass out of the body through peeing. Drink enough fluid to keep your pee pale yellow. This information is not intended to replace advice given to you by your health care provider. Make sure you discuss any questions you have with your health care provider. Document Revised: 12/09/2021 Document Reviewed: 12/09/2021 [employer] Patient Education 2022 [employer]. Follow Up Care 10/20/2023 11:23:27 With:Darrell GREGG, MORRO Thompson, URO Address: [facility] [place] Kenney Cabrera, [facility] [place] [address] [phone] When: Unknown [facility] 10-28-2023 Note Patient Education Nephrology Laser Therapy for Kidney Stones, Care After This sheet gives you information about how to care for yourself after your procedure. Your health care provider may also give you more specific instructions. If you have problems or questions, contact your health care provider. What can I expect after the procedure? After the procedure, it is common to have: ? Pain. ? A burning sensation while urinating. ? Small amounts of blood in your urine. ? A need to urinate frequently. ? Pieces of kidney stone in your urine. ? Mild discomfort when urinating that may be felt in the back. You may experience this if you have a flexible tube (stent) in your ureter. Follow these instructions at home: Medicines ? Take ophn-lmk-robdpyj and prescription medicines only as told by your health care provider. ? If you were prescribed an antibiotic medicine, take it as told by your health care provider. Do not stop taking the antibiotic even if you start to feel better. ? Ask your health care provider if the medicine prescribed to you: ? Requires you to avoid driving or using heavy machinery. ? Can cause constipation. You may need to take actions to prevent or treat constipation, such as: ? Take lyct-nrp-mpxbgoz or prescription medicines. ? Eat foods that are high in fiber, such as beans, whole grains, and fresh fruits and vegetables. ? Limit foods that are high in fat and processed sugars, such as fried or sweet foods. Activity ? Return to your normal activities as told by your health care provider. Ask your health care provider what activities are safe for you. ? Do not drive for 24 hours if you were given a sedative during your procedure. General instructions ? If your health care provider approves, you may take a warm bath to ease discomfort and burning. ? Drink enough fluid to keep your urine pale yellow. Your health care provider may recommend drinking two 8 oz (237 mL) glasses of water per hour for a few hours after your procedure. ? You may be asked to strain your urine to collect any stone fragments that you pass. These fragments may be tested. ? Keep all follow-up visits as told by your health care provider. This is important. If you have a stent, you will need to return to your health care provider to have the stent removed. Contact a health care provider if you: ? Have pain or a burning feeling that lasts more than 2 days. ? Feel nauseous. ? Vomit more and more often. ? Have difficulty urinating. ? Have pain that gets worse or does not get better with medicine. Get help right away if: ? You are unable to urinate, even if your bladder feels full. ? You have: ? Bright red blood or blood clots in your urine. ? More blood in your urine. ? Severe pain or discomfort. ? A fever or shaking chills. ? Abdominal pain. ? Difficulty breathing. ? Swelling in your legs. This information is not intended to replace advice given to you by your health care provider. Make sure you discuss any questions you have with your health care provider. Document Revised: 08/13/2022 Document Reviewed: 12/09/2021 [employer] Patient Education ? 2022 [employer] Laser Therapy for Kidney Stones Laser therapy for kidney stones is a procedure to break up small, hard mineral deposits that form in the kidney (kidney stones). The procedure is done using a device that produces a focused beam of light (laser). The laser breaks up kidney stones into pieces that are small enough to be passed out of the body through urination or removed from the body during the procedure. You may need laser therapy if you have kidney stones that are painful or block your urinary tract. This procedure is done by inserting a tube (ureteroscope) into your kidney through the urethral opening. The urethra is the part of the body that drains urine from the bladder. In women, the urethra opens above the vaginal opening. In men, the urethra opens at the tip of the penis. The ureteroscope is inserted through the urethra, and surgical instruments are moved through the bladder and the muscular tube that connects the kidney to the bladder (ureter) until they reach the kidney. Tell a health care provider about: ? Any allergies you have. ? All medicines you are taking, including vitamins, herbs, eye drops, creams, and fgqy-gro-wipxlxu medicines. ? Any problems you or family members have had with anesthetic medicines. ? Any blood disorders you have. ? Any surgeries you have had. ? Any medical conditions you have. ? Whether you are or may be . What are the risks? Generally, this is a safe procedure. However, problems may occur, including: ? Infection. ? Bleeding. ? Allergic reactions to medicines. ? Damage to the urethra, bladder, or ureter. ? Urinary tract infection (UTI). ? Narrowing of the urethra (urethral stricture). ? Difficulty passing urine. ? Blockage of the kidney caused by a f (more content not included)... [facility] 02-09-2023 Note [id number] Education Materials Surgery Total Knee Replacement, Care After After the procedure, it is common to have stiffness and discomfort, or redness, pain, and swelling around your cut from surgery (incision). You may also have a small amount of blood or clear fluid coming from your incision. Follow these instructions at home: Your doctor may give you more instructions. If you have problems, contact your doctor. Medicines ? Take [id number] and prescription medicines only as told by your doctor. ? If you were prescribed a blood thinner, take it as told by your doctor. ? If told, take steps to prevent problems with pooping (constipation). You may need to: ? Drink enough fluid to keep your pee (urine) pale yellow. ? Take medicines. You will be told what medicines to take. ? Eat foods that are high in fiber. These include beans, whole grains, and fresh fruits and vegetables. ? Limit foods that are high in fat and sugar. These include fried or sweet foods. Incision care ? Follow instructions from your doctor about how to take care of your incision. Make sure you: ? Wash your hands with soap and water for at least 20 seconds before and after you change your bandage. If you cannot use soap and water, use hand steam shovel runner. ? Change your bandage. ? Leave stitches, nino, or skin glue in place for at least 2 weeks. ? Leave tape strips alone unless you are told to take them off. You may trim the edges of the tape strips if they curl up. ? Do not take baths, swim, or use a hot tub until your doctor says it is okay. ? Check your incision every day for signs of infection. Check for: ? More redness, swelling, or pain. ? More fluid or blood. ? Warmth. ? Pus or a bad smell. Activity ? Rest as told by your doctor. ? Get up to take short walks every 1 to 2 hours. Ask for help if you feel weak or unsteady. ? Follow instructions from your doctor about: ? Using a walker, crutches, or a cane. ? How much body weight you may safely support on your affected leg (weight-bearing restrictions). ? How to get out of a bed and chair and how to go up and down stairs. A physical therapist will show you how to do this. ? Do exercises as told by your doctor or physical therapist. ? Avoid activities that put stress on your knees. These include running, jumping rope, and doing jumping jacks. ? Do not play contact sports until your doctor says it is okay. ? Return to your normal activities when your doctor says that it is safe. Managing pain, stiffness, and swelling ? If told, put ice on your knee. To do this: ? Put ice in a plastic bag or use an icing device (cold flow pad). Follow your doctor's directions about how to use the icing device. ? Place a towel between your skin and the bag or between your skin and the icing device. ? Leave the ice on for 20 minutes, 2?3 times a day. ? Take off the ice if your skin turns bright red. This is very important. If you cannot feel pain, heat, or cold, you have a greater risk of damage to the area. ? Move your toes often. ? Raise your leg above the level of your heart while you are sitting or lying down. ? Use a few pillows to keep your leg straight. ? Do not put a pillow just under the knee. If the knee is bent for a long time, this may make the knee stiff. ? Wear elastic knee support as told by your doctor. Safety ? To help prevent falls: ? Keep floors clear of objects you may trip over. ? Place items that you may need within easy reach. ? Wear an apron or tool belt with pockets for carrying objects. This leaves your hands free to help with your balance. ? Do not drive or use machines until your doctor says it is safe. General instructions ? Wear compression stockings as told by your doctor. ? Continue with breathing exercises. This helps prevent lung infection. ? Do not smoke or use any products that contain nicotine or tobacco. If you need help quitting, ask your doctor. ? If you plan to visit a dentist: ? Tell your doctor. Ask about things to do before your teeth are cleaned. ? Tell your dentist about your new joint. ? Keep all follow-up visits. Contact a doctor if: ? You have a fever or chills. ? You have a cough or feel short of breath. ? Your medicine is not controlling your pain. ? You have any of these signs of infection around your incision: ? More redness, swelling, or pain. ? More fluid or blood. ? Warmth. ? Pus or a bad smell. ? You fall. Get help right away if: ? You have very bad pain. ? You have trouble breathing. ? You have chest pain. ? You have pain in your calf or leg. ? You have redness, swelling, or warmth in your calf or leg. ? Your incision breaks open after the stitches or nino are taken out. These symptoms may be an emergency. Get help right away. Call your local emergency services (911 in the [place] ? Do not (more content not included)... [facility] 02-06-2023 Note [facility] 2[facility] Clinical Discharge Summary PERSON INFORMATION Name MARTHA DALEY Age 67 Years 1955 Sex FEMALE Language Ghanaian PCP Tray GREGG, Román Carpio Marital Status Perficient Service Swing Acct# Arrival 02/05/2023 13:00:00 Visit Reason STRENGTHENING Acuity LOS 000 25:18 Address: [address] [place] [id number] Comment: PROVIDER INFORMATION VITALS INFORMATION Vital Sign Triage Latest Temp Oral 37.3 DegC 36.9 DegC Temp Temporal Temp Intravascular Temp Axillary Temp Rectal 02 Sat 95 % 96 % Respiratory Rate 18 br/min 16 br/min Peripheral Pulse Rate 80 bpm 74 bpm Apical Heart Rate Blood Pressure 114 mmHg / 71 mmHg 113 mmHg / 70 mmHg Comment: MEDICAL INFORMATION Allergy Info: Tape; Latex; Contrast Dye; penicillin; codeine Medication List: New Medications [facility] [address], [place] [id number], [phone] oxyCODONE (oxyCODONE 5 mg oral tablet) 1 tab(s) Oral Every 8 hours as needed Pain - Moderate. Refills: 0. Other Medications acetaminophen (acetaminophen 500 mg oral tablet) 2 tab(s) Oral Every 6 hours as needed Pain - Mild. ascorbic acid (Vitamin C 500 mg oral tablet) 1 tab(s) Oral 2 times a day. calcium carbonate (calcium (as carbonate) 500 mg oral tablet) Oral 2 times a day. docusate (Colace 100 mg oral capsule) 1 cap(s) Oral 2 times a day. Medications That Were Updated - Follow Below Instructions [facility], [place] [id number], [phone] Updated: cholecalciferol (Vitamin D3 5000 intl units oral capsule) 1 cap(s) Oral every day. with food. Refills: 0. Medications to Continue That Have Not Changed Other Medications apixaban (Eliquis 5 mg oral tablet) 1 tab(s) Oral 2 times a day. aspirin (aspirin 81 mg oral delayed release tablet) 1 tab(s) Oral every day. atorvastatin (atorvastatin 10 mg oral tablet) 1 tab(s) Oral every day. busPIRone (busPIRone 5 mg oral tablet) 1 tab(s) Oral 3 times a day. celecoxib (celecoxib 400 mg oral capsule) 1 cap(s) Oral every day. ferrous sulfate (ferrous sulfate 325 mg (65 mg elemental iron) oral delayed release tablet) 1 tab(s) Oral every day. fluticasone nasal (fluticasone 50 mcg/inh nasal spray) 1 spray(s) Both Nostrils 2 times a day. metoprolol (Lopressor 25 mg oral tablet) 1 tab(s) Oral 2 times a day. multivitamin (Multivitamin, generic) 1 tab(s) Oral every day. OLANZapine (OLANZapine 5 mg oral tablet) 1 tab(s) Oral every day. pregabalin (pregabalin 50 mg oral capsule) 1 cap(s) Oral 2 times a day. Template Non-Formulary (lutein, zeaxanthis and omega 3) 1 tab(s) Oral every day. Comment: Lab and Radiology Results Laboratory or Other Results This Visit (last charted value for your 02/05/2023 visit) No Laboratory or Other Results This Visit DIET & ACTIVITY Patient Activity Level: As Tolerated Patient Diet: Regular Patient Activity Restrictions: DISCHARGE INFORMATION Discharge Disposition: Discharge Location: DEPART REASON INCOMPLETE INFORMATION PATIENT EDUCATION INFORMATION Instructions: Total Knee Replacement, Care After, [id number] Follow up: With: Address: When: Vanesa Rodriguez DO [address] [place], [place] [id number] Within 1 to 2 weeks DIAGNOSIS 1:Osteoarthritis Comment: PHYS DOC NOTES [facility] 02-06-2023 Note [id number] [facility] 02-02-2023 Note [facility] SURGERY Clinical Discharge Summary PERSON INFORMATION Name MARTHA DALEY Age 67 Years 1955 Sex FEMALE Language Ghanaian PCP Tray GREGG, Román Carpio Marital Status Med Service Ambulatory Surgery Acct# Arrival 02/02/2023 05:53:28 Visit Reason SURGERY - RIGHT TOTAL KNEE Acuity LOS 046 16:20 Address: [address] [place] [address] Comment: PROVIDER INFORMATION VITALS INFORMATION Vital Sign Triage Latest Temp Oral Temp Temporal Temp Intravascular Temp Axillary Temp Rectal 02 Sat 98 % 100 % Respiratory Rate Peripheral Pulse Rate Apical Heart Rate Blood Pressure / 69 mmHg / 74 mmHg Comment: MEDICAL INFORMATION Allergy Info: Tape; Latex; Contrast Dye; penicillin Prescriptions Given: apixaban (Eliquis 5 mg oral tablet) TAKE ONE TABLET BY MOUTH TWICE A DAY. aspirin (aspirin 81 mg oral delayed release tablet) 1 tab(s) Oral every day. atorvastatin (atorvastatin 10 mg oral tablet) TAKE ONE TABLET BY MOUTH DAILY. buPROPion (buPROPion 100 mg/12 hours (SR) oral tablet, extended release) 1 tab(s) Oral every day. celecoxib (celecoxib 400 mg oral capsule) 1 cap(s) Oral every day. cholecalciferol (Vitamin D3 5000 intl units oral capsule) 1 cap(s) Oral every day. with food. ferrous sulfate (ferrous sulfate 325 mg (65 mg elemental iron) oral delayed release tablet) 1 tab(s) Oral every day. fluticasone nasal (fluticasone 50 mcg/inh nasal spray) INSTILL 1 SPRAY IN EACH NOSTRIL TWICE A DAY. metoprolol (Lopressor 25 mg oral tablet) 1 tab(s) Oral 2 times a day. multivitamin (Multivitamin, generic) 1 tab(s) Oral every day. OLANZapine (OLANZapine 5 mg oral tablet) TAKE ONE TABLET BY MOUTH DAILY. Template Non-Formulary (lutein, zeaxanthis and omega 3) 1 tab(s) Oral every day. Medication List: Medications to Continue That Have Not Changed Other Medications apixaban (Eliquis 5 mg oral tablet) TAKE ONE TABLET BY MOUTH TWICE A DAY. aspirin (aspirin 81 mg oral delayed release tablet) 1 tab(s) Oral every day. atorvastatin (atorvastatin 10 mg oral tablet) TAKE ONE TABLET BY MOUTH DAILY. buPROPion (buPROPion 100 mg/12 hours (SR) oral tablet, extended release) 1 tab(s) Oral every day. celecoxib (celecoxib 400 mg oral capsule) 1 cap(s) Oral every day. cholecalciferol (Vitamin D3 5000 intl units oral capsule) 1 cap(s) Oral every day. with food. ferrous sulfate (ferrous sulfate 325 mg (65 mg elemental iron) oral delayed release tablet) 1 tab(s) Oral every day. fluticasone nasal (fluticasone 50 mcg/inh nasal spray) INSTILL 1 SPRAY IN EACH NOSTRIL TWICE A DAY. metoprolol (Lopressor 25 mg oral tablet) 1 tab(s) Oral 2 times a day. multivitamin (Multivitamin, generic) 1 tab(s) Oral every day. OLANZapine (OLANZapine 5 mg oral tablet) TAKE ONE TABLET BY MOUTH DAILY. Template Non-Formulary (lutein, zeaxanthis and omega 3) 1 tab(s) Oral every day. Medications to Continue That Have Not Changed Other Medications apixaban (Eliquis 5 mg oral tablet) TAKE ONE TABLET BY MOUTH TWICE A DAY. aspirin (aspirin 81 mg oral delayed release tablet) 1 tab(s) Oral every day. atorvastatin (atorvastatin 10 mg oral tablet) TAKE ONE TABLET BY MOUTH DAILY. buPROPion (buPROPion 100 mg/12 hours (SR) oral tablet, extended release) 1 tab(s) Oral every day. celecoxib (celecoxib 400 mg oral capsule) 1 cap(s) Oral every day. cholecalciferol (Vitamin D3 5000 intl units oral capsule) 1 cap(s) Oral every day. with food. ferrous sulfate (ferrous sulfate 325 mg (65 mg elemental iron) oral delayed release tablet) 1 tab(s) Oral every day. fluticasone nasal (fluticasone 50 mcg/inh nasal spray) INSTILL 1 SPRAY IN EACH NOSTRIL TWICE A DAY. metoprolol (Lopressor 25 mg oral tablet) 1 tab(s) Oral 2 times a day. multivitamin (Multivitamin, generic) 1 tab(s) Oral every day. OLANZapine (OLANZapine 5 mg oral tablet) TAKE ONE TABLET BY MOUTH DAILY. Template Non-Formulary (lutein, zeaxanthis and omega 3) 1 tab(s) Oral every day. Medications to Continue That Have Not Changed Other Medications apixaban (Eliquis 5 mg oral tablet) TAKE ONE TABLET BY MOUTH TWICE A DAY. aspirin (aspirin 81 mg oral delayed release tablet) 1 tab(s) Oral every day. atorvastatin (atorvastatin 10 mg oral tablet) TAKE ONE TABLET BY MOUTH DAILY. buPROPion (buPROPion 100 mg/12 hours (SR) oral tablet, extended release) 1 tab(s) Oral every day. celecoxib (celecoxib 400 mg oral capsule) 1 cap(s) Oral every day. cholecalciferol (Vitamin D3 5000 intl units oral capsule) 1 cap(s) Oral every day. with food. ferrous sulfate (ferrous sulfate 325 mg (65 mg elemental iron) oral delayed release tablet) 1 tab(s) Oral every day. fluticasone nasal (fluticasone 50 mcg/inh nasal spray) INSTILL 1 SPRAY IN EACH NOSTRIL TWICE A DAY. metoprolol (Lopressor 25 mg oral tablet) 1 tab(s) Oral 2 times a day. multivitamin (Multivitamin, generic) 1 tab(s) Oral every day. OLANZapine (OLANZapine 5 mg oral tablet) TAKE ONE TABLET (more content not included)... [facility] 03-05-2022 Note OPERATIVE NOTE OPERATION DATE: 03/05/2022 PREOPERATIVE DIAGNOSIS: Abdominal pain, dysphagia, early satiety, change in bowel habits. POSTOPERATIVE DIAGNOSIS: Mild distal esophagitis and redundant colon with moderate sigmoid diverticulosis. PROCEDURE: EGD and colonoscopy to cecum. SURGEON: Alena Morales M.D. ANESTHESIA: Monitored anesthesia care. ESTIMATED BLOOD LOSS: Zero. INDICATIONS AND CONSENT: Patient is a 66-year-old female with a several month history of intermittent upper abdominal pain, alternating diarrhea and constipation, bloating, early satiety, some associated nausea and vomiting. Indications, risks, benefits, alternatives of proceeding with EGD and colonoscopy were explained extensively to the patient, including the risks of bleeding, aspiration, esophageal/gastric/duodenal or colonic perforation or anesthetic complications. All of her questions were answered. Informed consent was obtained. PROCEDURE: Patient brought to the operating room, placed in the left lateral decubitus position. Monitored anesthesia care was provided. A bite block was placed in the patient's mouth. Scope was inserted into the oropharynx. Under direct visualization, it was advanced into the esophagus, past the cricopharyngeus, down to the stomach. The stomach was insufflated with air. The pylorus was traversed down to the descending portion of the duodenum. There was no evidence of duodenitis or ulceration. There was no scarring within the pyloric channel. The scope was pulled back into the stomach and retroflexed. There was no significant hiatal hernia. No gastric mucosal abnormalities. The GE junction was noted at approximately 41 cm. There was some mild distal esophagitis without Terry's changes or ulceration. The remainder of the esophagus was unremarkable. There was a small inlet patch in the upper esophagus as well. The scope was then withdrawn. The patient was then positioned for colonoscopy. Rectal exam was performed which showed no masses or blood. Scope was inserted into the anal canal. Under direct visualization was advanced. With the aid of abdominal compression, it was advanced to the cecum where cecal markings were clearly identified. Patient had a markedly redundant, tortuous colon. There was a good prep. Upon withdrawal of the scope, mucosal surfaces were carefully examined. There were no mass lesions or polyps. No inflammatory changes or ulcerations. There was moderate sigmoid diverticulosis without inflammatory changes or scarring. The scope was retroflexed in the anal canal. There was noted to be no significant hemorrhoidal disease. The scope was then withdrawn. Patient tolerated procedure well, was sent to recovery room in good condition. Follow up screening colonoscopy should be in 10 years for screening. [facility] Evaluation + Plan note No data available for this section General [facility] [place] Evaluation + Plan note Future Appointments Appointment Date:10/27/2022 01:15:00 PM Scheduled Provider:Russell Cardenas MD Location:[facility] Appointment Type:Cardiology Follow Up ([place]) Appointment Date:01/07/2023 01:20:00 PM Scheduled Provider:Román Feliz MD Location:[facility] Appointment Type: Open Appointment Date:10/16/2023 01:00:00 PM Scheduled Provider: Location:[facility] Appointment Type:FM Medicare Wellness Subsequent Diagnostic Tests PendingHCV Antibody RFX to Quant PCR 10/16/22 Future Scheduled TestsNM Myocardial Spect Rest/Stress 1 Day 09/12/22Echo Transthoracic Complete 09/12/22 [facility] Evaluation + Plan note Future Appointments Appointment Date:01/07/2023 01:20:00 PM Scheduled Provider:Román Feliz MD Location:[facility] Appointment Type: Open Appointment Date:10/16/2023 01:00:00 PM Scheduled Provider: Location:[facility] Appointment Type:FM Medicare Wellness Subsequent Future Scheduled TestsNM Myocardial Spect Rest/Stress 1 Day 09/12/22Echo Transthoracic Complete 09/12/22 [facility] Evaluation + Plan note Future Appointments Appointment Date:01/07/2023 01:20:00 PM Scheduled Provider:Román Feliz MD Location:[facility] Appointment Type: Open Appointment Date:01/29/2023 02:15:00 PM Scheduled Provider:Russell Cardenas MD Location[facility] [place] Appointment Type:Cardiology Follow Up ([place]) Appointment Date:10/16/2023 01:00:00 PM Scheduled Provider: Location:[facility] Appointment Type:FM Medicare Wellness Subsequent Future Scheduled TestsNM Myocardial Spect Rest/Stress 1 Day 09/12/22Echo Transthoracic Complete 09/12/22 [facility] Evaluation + Plan note Future Appointments Appointment Date:02/18/2023 04:00:00 PM Scheduled Provider:Román Feliz MD Location:[facility] Appointment Type: Open Appointment Date:10/16/2023 01:00:00 PM Scheduled Provider: Location:[facility] Appointment Type: Medicare Wellness Subsequent Future Scheduled TestsNM Myocardial Spect Rest/Stress 1 Day 09/12/22Echo Transthoracic Complete 09/12/22 [facility] Evaluation + Plan note Future Appointments Appointment Date:08/17/2023 02:00:00 PM Scheduled Provider:Román Feliz MD Location:[facility] Appointment Type: Open Appointment Date:10/16/2023 01:00:00 PM Scheduled Provider: Location:[facility] Appointment Type: Medicare Wellness Subsequent Diagnostic Tests PendingUrine Culture 07/14/23 Future Scheduled TestsNM Myocardial Spect Rest/Stress 1 Day 09/12/22Echo Transthoracic Complete 09/12/22 [facility] Evaluation + Plan note Future Appointments Appointment Date:08/17/2023 02:00:00 PM Scheduled Provider:Román Feliz MD Location:[facility] Appointment Type: Open Appointment Date:10/06/2023 01:00:00 PM Scheduled Provider: Location:[facility] Appointment Type: Medicare Wellness Subsequent Future Scheduled TestsNM Myocardial Spect Rest/Stress 1 Day 09/12/22Echo Transthoracic Complete 09/12/22 [facility] Evaluation + Plan note Future Appointments Appointment Date:11/13/2023 03:00:00 PM Scheduled Provider:Elvis Vernon [facility] Type:Cardiology Follow Up ([facility]) [facility] Hospital Discharge instructions No data available for this section General Surgery [place] Progress note No data available for this section General Surgery [place] Summary Purpose Family History No Family History Records Found No data available for this section No data available for this section No Family History Records Found No data available for this section No data available for this section No Family History Records Found No data available for this section No data available for this section No data available for this section No Family History Records Found Advance Directives No Advanced Directives Records FoundNo Advanced Directives Records FoundNo Advanced Directives Records FoundNo Advanced Directives Records Found Additional Source Comments Patient Care team informatio n (unrecognized section and content) Personnel Name: RICK AVILA MD Address: Address: [address] [place] [address] [address] Personnel Name: Román Feliz MD Address: Address: [address] [place] [address] Personnel Name: Román Feliz MD Address: Address: [address] [place] [address] Personnel Name: Román Feliz MD Address: Address: [address] [place] [address] Personnel Name: Román Feliz MD Address: Address: [address] [place] [address] Personnel Name: Román Feliz MD Address: Address: [address] [place] [address] Personnel Name: Román Feliz MD Address: Address: [address] [place] [address] Personnel Name: Román Feliz MD Address: Address: [address] [place] [address] Personnel Name: Román Feliz MD Address: Address: [address] [place] [address] Personnel Name: Román Feliz MD Address: Address: [address] [place] [address] Personnel Name: Román Feliz MD Address: Address: [address] [place] [address] INFORMATION SOURCE (unrecogn ized section and content) DATE CREATED AUTHOR 09/04/2022 [facility] DATE CREATED AUTHOR AUTHOR'S ORGANIZ ATION 02/22/2023 [facility] DATE CREATED AUTHOR AUTHOR'S ORGANIZ ATION 09/11/2023 [facility] EPIC DATE CREATED AUTHOR AUTHOR'S ORGANIZ ATION 11/26/2023 [facility] FOR RECORDS PERTAINING TO PATIENTS WHO ARE OR HAVE BEEN ENROLLED IN A CHEMICAL DEPENDENCY/SUBSTANCEABUSE PROGRAM, SOME INFORMATION MAY BE OMITTED. This clinical summary was aggregated from multiple sources. Caution should be exercised in using it in the provision of clinical care. This summary normalizes information from multiple sources, and as a consequence, information in this document may materially change the coding, format and clinical context of patient data. In addition, data may be omitted in some cases. CLINICAL DECISIONS SHOULD BE BASED ON THE PRIMARY CLINICAL RECORDS. [facility]. provides no warranty or guarantee of the accuracy or completeness of information in this document.
[2023-11-28 11:07] LABS: Bilirubin Urine NEGATIVE (NEGATIVE); Blood Urine NEGATIVE (NEGATIVE); Clarity Urine CLEAR (CLEAR); Color Urine LT. YELLOW (YELLOW); Glucose Urine UA NEGATIVE (NEGATIVE); Ketones Urine NEGATIVE (NEGATIVE); Leukocyte Esterase Urine SMALL (NEGATIVE); Nitrite Urine NEGATIVE (NEGATIVE); Protein Urine NEGATIVE (NEG/TRACE); Specific Gravity Urine <=1.005 (1.005-1.025); Urobilinogen Urine 0.2 EU/dL (0.2-1.0); pH Urine 6.5 (5.0-9.0)
[2023-11-28 11:13] LABS: Urine Microscopic Indicated YES
[2023-11-28 11:19] LABS: Bacteria Urine TRACE #/HPF (NONE SEEN); Cast Seen? NONE SEEN #/LPF (NONE SEEN); Crystals Seen? None Seen #/HPF (None Seen); Mucus Urine NONE SEEN (NONE SEEN); RBC Urine NONE SEEN #/HPF (0-2); Squamous Epithelial Cell Urine RARE #/LPF (NONE/RARE)
[2023-11-28 11:20] LABS: Urine Culture Indicated NO
== END 2023-11-28 08:46 | disposition home or self-care (01) ==
LOC: US 08:46
PROVIDERS: PCP Family Medicine; Visit Provider Urology
DX: R10.9 Unspecified abdominal pain (principal); R31.9 Hematuria, unspecified; Z87.442 Personal history of urinary calculi; N20.0 Calculus of kidney
CPT/HCPCS: 76775; 81001